=== PATIENT | female | born 1950 | race Caucasian/White ===

== ENCOUNTER → 2018-01-05 16:00 | Outpatient (CLI) | payer OTHER, SELFPAY | DX: Z23 Encounter for immunization (principal) | CPT/HCPCS: 90471; 90686 ==

== ENCOUNTER → 2019-01-13 19:01 | Outpatient (CLI) | payer OTHER, SELFPAY | DX: Z23 Encounter for immunization (principal) | CPT/HCPCS: 90471; 90686 ==

== ENCOUNTER → 2019-05-04 13:43 | Outpatient (CLI) | payer OTHER, SELFPAY ==
--- NOTE | 2019-05-04 13:45 | DI.RAD.S_ITS ---
PROCEDURE: XR LUMBAR SPINE 2-3V INDICATIONS: low back pain for a year after injury TECHNIQUE: 3 views of the lumbar spine were acquired. COMPARISON: [facility], , L-SPINE 2-3 VIEWS, 06/15/2009, 11:19. FINDINGS: Bones: 5 [id number] vertebrae are present. There is very mild rightward curvature of thoracolumbar junction centered at T10-11 level. Age indeterminate anterior wedge compression deformity at L1 level is seen with up to 50% loss of L1 vertebral body height anteriorly new since 2009 study. No other compression fracture. Minimal retrolisthesis at L1-2, L2-3 and L3-4 levels are seen. Minimal anterolisthesis at L5-S1 level is also noted. Degenerative disc disease throughout lumbar spine is seen more prominent at L5-S1 level. No suspicious bony lesions. Soft tissues: Overlying bowel gas pattern is normal. No suspicious soft tissue calcifications. IMPRESSION: Age-indeterminate anterior wedge compression deformity at L1 level with up to 50% loss of L1 vertebral body height anteriorly. Degenerative disc disease throughout lumbar spine with likely degenerative spondylolisthesis and lumbar spine as above. Dictated by: Kong Genao M.D. on 05/04/2019 at 14:41 Approved by: Kong Genao M.D. on 05/04/2019 at 14:43
== END ==
PROVIDERS: PCP Family Medicine; Visit Provider Family Medicine
DX: M54.5 Low back pain (principal); M51.36 Other intervertebral disc degeneration, lumbar region; M51.37 Other intervertebral disc degeneration, lumbosacral region
CPT/HCPCS: 72100

== ENCOUNTER → 2019-05-12 14:43 | Outpatient (CLI) | payer OTHER, SELFPAY | PROVIDERS: PCP Family Medicine; Referring Provider Family Medicine; Visit Provider Family Medicine | DX: M81.0 Age-related osteoporosis without current pathological fracture (principal); Z78.0 Asymptomatic menopausal state; Z82.62 Family history of osteoporosis; M54.9 Dorsalgia, unspecified; M48.54XA Collapsed vertebra, not elsewhere classified, thoracic region, initial encounter for fracture; G89.29 Other chronic pain | CPT/HCPCS: 77080 ==

== ENCOUNTER → 2019-05-23 08:43 | Outpatient (CLI) | payer OTHER, SELFPAY ==
[2019-05-23 10:11] LABS: Magnesium 2.2 mg/dL (1.6-2.3)
[2019-05-23 11:03] LABS: Vitamin D 25 Hydroxy (D3) 62.6 ng/mL (30.0-100.0)
== END ==
PROVIDERS: PCP Family Medicine; Referring Provider Family Medicine; Visit Provider Family Medicine
DX: M81.0 Age-related osteoporosis without current pathological fracture (principal)
CPT/HCPCS: 36415; 82306; 83735

== ENCOUNTER → 2019-11-10 12:42 | Outpatient (CLI) | payer OTHER, SELFPAY ==
--- NOTE | 2019-11-10 12:45 | DI.RAD.S_ITS ---
PROCEDURE: XR LUMBAR SPINE MIN 4V INDICATIONS: vert fx one year ago TECHNIQUE: 5 views of the lumbar spine were acquired. COMPARISON: [facility], NINO, XR LUMBAR SPINE 2-3V, 05/04/2019, 13:44. [facility], [place]INO, L-SPINE 2-3 VIEWS, 06/15/2009, 11:19. FINDINGS: Bones: 5 nonrib-bearing vertebrae are present. There is normal bony alignment. No acute vertebral body compression fractures but a previously present L1 moderately severe wedge compression fracture is again noted, also present on plain film imaging from April of this year. In inferior endplate L3 impaction injury also is present, chronic, and no new injury is seen. There is moderately severe to severe degenerative disc disease at L5-S1 and facet osteoarthritis that is mild at L4-5 and moderate to moderately severe at L5-S1.. No suspicious bony lesions. Soft tissues: Overlying bowel gas pattern is normal. No suspicious soft tissue calcifications. Oblique images: No pars defects. IMPRESSION: Old compression fractures, L1 and L3, moderately severe to severe degenerative changes L5-S1 where spinal and foraminal stenosis likely is present. Dictated by: Ronald Clifford M.D. on 11/10/2019 at 14:09 Approved by: Ronald Clifford M.D. on 11/10/2019 at 14:10
== END ==
PROVIDERS: PCP Family Medicine; Referring Provider Family Medicine; Visit Provider Physical Medicine & Rehabilitation
DX: S32.010D Wedge compression fracture of first lumbar vertebra, subsequent encounter for fracture with routine healing (principal); M51.37 Other intervertebral disc degeneration, lumbosacral region; M47.816 Spondylosis without myelopathy or radiculopathy, lumbar region; M81.0 Age-related osteoporosis without current pathological fracture
CPT/HCPCS: 72110

== ENCOUNTER → 2019-11-28 12:02 | Outpatient (CLI) | payer OTHER, SELFPAY ==
--- NOTE | 2019-11-28 12:03 | DI.MRI.S_ITS ---
PROCEDURE: MR LUMBAR SPINE WO CON INDICATIONS: vert fx TECHNIQUE: Noncontrast sagittal T1 spin echo and T2 fast echo, sagittal STIR, axial T1 and T2 fast spin echo through the lumbar spine. In cases with scoliosis, additional coronal T2 fast spin echo may be performed. COMPARISON: [facility], CR, XR LUMBAR SPINE MIN 4V, 11/10/2019, 12:35. [facility], CR, L-SPINE 2-3 VIEWS, 06/15/2009, 11:19. fracture stable [facility], CR, XR LUMBAR SPINE 2-3V, 05/04/2019, 13:44. FINDINGS: Image quality: Excellent. Alignment and Curvature: There is normal bony alignment. Bone Marrow: Reactive endplate changes noted adjacent to the L1-L2 and L5-S1 discs. L1 compression is stable compared to May 04, 2019 and November 10, 2019. Large Schmorl's node involving the inferior endplate of the L3 vertebral body is stable compared to May 04, 2019 and November 10, 2019. . Spinal Cord: Conus medullaris terminates at the L1 level. Visualized cord demonstrates normal signal and size. Paraspinous Soft Tissues: No paravertebral masses. T12-L1: Loss of disc signal. Mild, diffuse disc bulge. Mild narrowing of the central canal. Mild bilateral neural foraminal narrowing. No neural compression. L1-L2: Loss of disc signal. Mild, diffuse disc bulge. Mild narrowing of the central canal. Mild bilateral neural foraminal narrowing. No neural compression. L2-L3: Loss of disc signal. Mild, diffuse disc bulge. Mild narrowing of the central canal. Mild bilateral neural foraminal narrowing. No neural compression. L3-L4: Loss of disc signal. Mild, diffuse disc bulge. Mild bilateral facet hypertrophy. Mild to moderate narrowing of the central canal. Moderate bilateral neural foraminal narrowing. No neural compression. L4-L5: Loss of disc signal. Mild, diffuse disc bulge. Moderate bilateral facet hypertrophy. Moderate narrowing of the central canal. Mild bilateral neural foraminal narrowing. No neural compression. L5-S1: Loss of disc space signal and height. Mild, diffuse disc bulge. [id number] bilateral facet hypertrophy. No central stenosis. Severe bilateral neural foraminal narrowing with compression of the exiting L5 nerve roots. IMPRESSION: 1. L1 compression deformity and large L3 Schmorl's nodes stable compared to prior plain film radiographs obtained May 04, 2019 and November 10, 2019. 2. Multilevel degenerative disease. 3. Multilevel facet arthropathy. 4. No significant central canal narrowing. 5. Severe bilateral L5-S1 neural foraminal narrowing with compression of the exiting bilateral L5 nerve roots. Dictated by: Amaya Verduzco MD, PhD on 11/28/2019 at 15:41 Approved by: Amaya Verduzco MD, PhD on 11/28/2019 at 15:55
== END ==
PROVIDERS: PCP Family Medicine; Referring Provider Physical Medicine & Rehabilitation; Visit Provider Physical Medicine & Rehabilitation
DX: S32.010D Wedge compression fracture of first lumbar vertebra, subsequent encounter for fracture with routine healing (principal); M81.0 Age-related osteoporosis without current pathological fracture; M51.36 Other intervertebral disc degeneration, lumbar region; M51.37 Other intervertebral disc degeneration, lumbosacral region; M47.816 Spondylosis without myelopathy or radiculopathy, lumbar region; M47.817 Spondylosis without myelopathy or radiculopathy, lumbosacral region; M48.061 Spinal stenosis, lumbar region without neurogenic claudication; M48.07 Spinal stenosis, lumbosacral region
CPT/HCPCS: 72148

== ENCOUNTER → 2020-03-14 08:40 | Outpatient (CLI) | payer OTHER, SELFPAY ==
--- NOTE | 2020-03-14 09:18 | DI.RAD.S_ITS ---
PROCEDURE: XR LUMBAR SPINE MIN 4V INDICATIONS: L1 fx follow up TECHNIQUE: 5 views of the lumbar spine acquired. COMPARISON: [facility], , XR LUMBAR SPINE MIN 4V, 11/10/2019, 12:35. FINDINGS: Bones: 5 nonrib-bearing vertebrae are present. Mild retrolisthesis redemonstrated at L1-L2, L2-L3, and L3-L4. There is a moderate superior endplate compression fracture of the L1 vertebral body which appears similar to the prior study. Slight posterior displacement along the superior endplate is redemonstrated with associated mild bony spinal canal narrowing. Multilevel mild to moderate degenerative disc disease redemonstrated throughout the lumbar spine. There is also moderate facet arthropathy again noted in the lower lumbar spine. Oblique images demonstrate no pars defects. Soft tissues: Overlying bowel gas pattern is normal. No suspicious soft tissue calcifications. IMPRESSION: 1. Superior endplate compression fracture of the L1 vertebral body appears similar to the prior study. Associated mild bony spinal canal narrowing redemonstrated at T12-L1. 2. Multilevel degenerative disc disease and facet arthropathy redemonstrated in the lumbar spine. Dictated by: Marcell Marina M.D. on 03/14/2020 at 10:11 Approved by: Marcell Marina M.D. on 03/14/2020 at 10:14
== END ==
PROVIDERS: PCP Family Medicine; Referring Provider Physical Medicine & Rehabilitation; Visit Provider Physical Medicine & Rehabilitation
DX: S32.010D Wedge compression fracture of first lumbar vertebra, subsequent encounter for fracture with routine healing (principal); M48.05 Spinal stenosis, thoracolumbar region; M51.36 Other intervertebral disc degeneration, lumbar region; M47.816 Spondylosis without myelopathy or radiculopathy, lumbar region; M41.9 Scoliosis, unspecified
CPT/HCPCS: 72110

== ENCOUNTER → 2020-04-11 11:06 | Outpatient (CLI) | payer OTHER, SELFPAY ==
[2020-04-11] MEDS: COVID-19 VACC(MODERNA-1)/PF 100 MCG/0.5 ML VIAL IM (11:13)
== END ==
PROVIDERS: PCP Family Medicine; Visit Provider Internal Medicine
DX: Z23 Encounter for immunization (principal)
CPT/HCPCS: 0011A; 91301

== ENCOUNTER → 2020-05-09 11:01 | Outpatient (CLI) | payer OTHER, SELFPAY ==
[2020-05-09] MEDS: COVID-19 VACC #2, MRNA(MOD) 100 MCG/0.5 ML VIAL IM (11:11)
== END ==
PROVIDERS: PCP Family Medicine; Visit Provider Internal Medicine
DX: Z23 Encounter for immunization (principal)
CPT/HCPCS: 0012A; 91301

== ENCOUNTER 2021-12-12 11:46 | Inpatient (IN) | payer MEDICARE, OTHER, SELFPAY ==
[2021-12-12 11:52] VITALS: BP 169/93; PULSE 99; RESP 16; TEMP 36.8; O2SAT 97; BMI 16.7
--- NOTE | 2021-12-12 14:15 | PC.NURSE ---
called on visitor phone requesting assistance for pt, rounded and pt sitting in waiting room asking questions concerning urine specimen collection. Explained procedure to pt, pt pointed out paper instructions to place urine cup on a shelf and she could not find a shelf in bathroom, explained procedure to pt and educated how she could accomplish without shelf, pt reports continued confusion with process. Informed pt we could assist her further once we had a room in the ED, updated pt and on wait.
--- NOTE | 2021-12-12 17:14 | ED.PSYCH ---
HPI - Psych <Lalo Fulton MD - Last Filed: 12/26/21 07:21> General Chief Complaint: Psychiatric Symptoms Stated Complaint: mental health issues Time Seen by Provider: 12/12/21 16:04 Source: patient Mode of arrival: Ambulatory History of Present Illness HPI Narrative: Patient here with her . Patient is not a good historian. Patient was diagnosed with Lewy body dementia this past May. He is followed by Neurology Dr. Stoll at [facility]. I did review discharge summary from May/June of this year from [facility]. Patient was not able to follow up with [facility] as recommended by Dr. Dunaway with psychiatry at [facility]. Patient has had her Seroquel adjustment with Dr. Stoll since September. Currently not on any Seroquel. During her stay at [facility]. She did have visual hallucinations./altered mental status. Psychiatry consult determine she was non decisional given mental state and mental capacity and decision making. She did have MRI of the brain and CT scan of the brain as well as lumbar puncture. Those were unremarkable. In the last 3 days states she has been behaving oddly and had confusion. She would be cleaning things obsessively for no reason. She at times is catatonic according to family/. He states he fears that she might hurt herself or others accidentally. She does not seem to be as oriented and alert at her baseline. No recent illness no cough cold congestion fever chills. No urinary complaints. Has chronic low back pain which is not new. No fall or injury. Related Data Previous Rx's Medication Instructions Recorded acetaminophen 325 mg tablet 650 mg PO Q6HR PRN Fever/Mild Pain 12/17/21 (1-3) #30 tabs apixaban 5 mg tablet 5 mg PO BID #60 tabs 12/17/21 apixaban 5 mg tablet (Eliquis) 10 mg PO BID #14 tabs 12/17/21 polyethylene glycol 3350 17 gram 17 gm PO DAILY PRN Constipation 12/17/21 oral powder packet #15 ea quetiapine 25 mg tablet 12.5 mg PO BID #30 tabs 12/17/21 sennosides 8.6 mg tablet (senna) 8.6 mg PO DAILY PRN Constipation 09/13/22 #15 tabs Allergies Allergy/AdvReac Type Severity Reaction Status Date / Time No Known Drug Allergies Allergy Verified 12/12/21 11:52 Review of Systems <Lalo Fulton MD - Last Filed: 12/26/21 07:21> Review of Systems Narrative: GENERAL: Denies chills, fatigue, malaise, fever, sweats. HEENT: Denies sinus pain, ear pain, sore throat RESPIRATORY: Denies dyspnea, cough CARDIOVASCULAR: Denies chest pain, palpitations GASTROINTESTINAL: Denies nausea, vomiting, abdominal pain : Denies dysuria, frequency, hematuria MUSCULOSKELETAL: denies muscle or bony pain SKIN: Denies rash, skin lesions NEUROLOGIC: Denies weakness, numbness PSYCH: Is not combative, is cooperative ROS Unobtainable: All systems reviewed & are unremarkable except as noted in HPI and below Patient History <Lalo Fulton MD - Last Filed: 12/26/21 07:21> Medical History Body posture problem Body posture problem Cervical somatic dysfunction Chicken pox Chronic back pain (~2018) Compression fracture of L1 vertebra with routine healing Cranial somatic dysfunction Facet arthropathy Knee pain (~2008) Kyphosis (acquired) (postural) Musculoskeletal problem (~2018) Osteoporosis Pelvic somatic dysfunction Rib pain on left side Scoliosis Segmental and somatic dysfunction of abdomen and other regions Segmental and somatic dysfunction of lower extremity Segmental and somatic dysfunction of lumbar region Segmental and somatic dysfunction of rib cage Segmental and somatic dysfunction of sacral region Segmental and somatic dysfunction of thoracic region Segmental and somatic dysfunction of upper extremity Skin rash (~2018) Vision disorder Surgical History History of cataract removal with insertion of prosthetic lens (~2015) Family History Father Cancer Mother History of heart disease Social History household members: spouse Smoking Status: Never smoker Smoking Status: Never smoker alcohol intake frequency: holidays/special occasions only Substance Use Type: does not use Exam <Lalo Fulton MD - Last Filed: 12/26/21 07:21> Narrative Exam Narrative: GENERAL: in no distress, not toxic not dyspneic HEAD: Normocephalic. EYES: Pupils equal round No scleral icterus. ENT: Mucous membranes moist. NECK: Trachea midline. CARDIOVASCULAR: Regular rate and rhythm without murmurs RESPIRATORY: Clear to auscultation. Breath sounds equal bilaterally. No wheezes, rales, or rhonchi. GASTROINTESTINAL: Abdomen soft, non-tender EXTREMITIES: No gross deformities. BACK: No flank tenderness. NEURO: Awake and alert to name and date of only. Have slow clear speech. Hand Bootmaker equally each hand. Has very slow processing with answering questions SKIN: Warm and dry PSYCH: Not anxious, is cooperative, has flat affect. Not combative. Initial Vital Signs Initial Vital Signs: Vital Signs Temperature 98.3 F 12/12/21 11:52 Pulse Rate 99 H 12/12/21 11:52 Respiratory Rate 16 12/12/21 11:52 Blood Pressure 169/93 H 12/12/21 11:52 Pulse Oximetry 97 12/12/21 11:52 Oxygen Delivery Method 12/12/21 11:52 <Jean Carlos Pratt DO - Last Filed: 12/14/21 06:57> Initial Vital Signs Initial Vital Signs: Vital Signs Temperature 98.3 F 12/12/21 11:52 Pulse Rate 99 H 12/12/21 11:52 Respiratory Rate 16 12/12/21 11:52 Blood Pressure 169/93 H 12/12/21 11:52 Pulse Oximetry 97 12/12/21 11:52 Oxygen Delivery Method 12/12/21 11:52 <Mariya Escobar DO - Last Filed: 12/14/21 18:43> Initial Vital Signs Initial Vital Signs: Vital Signs Temperature 98.3 F 12/12/21 11:52 Pulse Rate 99 H 12/12/21 11:52 Respiratory Rate 16 12/12/21 11:52 Blood Pressure 169/93 H 12/12/21 11:52 Pulse Oximetry 97 12/12/21 11:52 Oxygen Delivery Method 12/12/21 11:52 Course <Lalo Futlon MD - Last Filed: 12/26/21 07:21> Course Course Narrative: 6:00 p.m.. Sign out to Dr. Gray, patient will need completed evaluation by social work. Medical clearance. Labs are pending. Erlinda social work indicates may need CHRISTINA/DCR December 13, 2021 at 7:00 a.m.. Sign out from Dr Gray, DCR had to do walk away. No beds available. Will need social work to see patient again to start process again for placement. 7:45 a.m.. Reintroduced myself the patient. No verbal response asking her name date of or how she is doing. Patient is awake. Does track with her eyes. not at bedside at this time. Awaiting callback from Dr. Stoll, her neurologist 6:00 p.m.. Sign out to Dr. Pratt, patient still being worked with social work for placement. The DCR has walked away twice. Patient to receive Sinemet 3 times a day. Needs repeat on laboratory studies/CMP. May need sodium replacement Orders Ordered: Discontinued Medications Acetaminophen (Acetaminophen 325 Mg Tablet) 650 mg PO Q6HR PRN PRN Reason: Fever/Mild Pain (1-3) Stop: 12/17/21 21:01 Last Admin: 12/17/21 05:03 Dose: 650 mg Documented By: FELTON Acetaminophen (Acetaminophen 650 Mg Supp) 650 mg IA Q4HR PRN PRN Reason: Fever/Mild Pain (1-3) Last Admin: 12/18/21 20:19 Dose: 650 mg Documented By: Apixaban (Apixaban 5 Mg Tablet) 10 mg PO BID [facility] Stop: 12/21/21 11:29 Last Admin: 12/14/21 11:35 Dose: Not Given Documented By: ALEXEY Apixaban (Apixaban 5 Mg Tablet) 10 mg PO BID [facility] Stop: 12/20/21 21:01 Last Admin: 12/17/21 09:26 Dose: 10 mg Documented By: Admin: 12/16/21 23:36 Dose: 10 mg Documented By: Admin: 12/16/21 09:38 Dose: 10 mg Documented By: Admin: 12/15/21 20:18 Dose: 10 mg Documented By: NICOLE Carbidopa/Levodopa (Carbidopa-Levodopa 25/100 Tablet) 1 each PO NOW ONE Stop: 12/13/21 09:03 Last Admin: 12/13/21 09:32 Dose: 1 each Documented By: AMILCAR Carbidopa/Levodopa (Carbidopa-Levodopa 25/100 Tablet) 1 each PO TID [facility] Last Admin: 12/14/21 09:21 Dose: Not Given Documented By: Admin: 12/13/21 21:58 Dose: 1 each Documented By: LETI Carbidopa/Levodopa (Carbidopa-Levodopa 25/100 Tablet) 1 each PO BID [facility] Last Admin: 12/14/21 17:31 Dose: Not Given Documented By: JUSTICE Carbidopa/Levodopa (Carbidopa-Levodopa 25/100 Tablet) 1 each PO TID [facility] Last Admin: 12/17/21 09:26 Dose: 1 each Documented By: Admin: 12/16/21 23:38 Dose: 1 each Documented By: Admin: 12/16/21 15:13 Dose: 1 each Documented By: Admin: 12/16/21 09:37 Dose: 1 each Documented By: HCVin Admin: 12/15/21 20:17 Dose: 1 each Documented By: Admin: 12/15/21 13:21 Dose: 1 each Documented By: Admin: 12/15/21 08:15 Dose: 1 each Documented By: Admin: 12/14/21 22:20 Dose: 1 each Documented By: NICOLE Enoxaparin Sodium (Enoxaparin 60 Mg/0.6 Ml Syringe) 50 mg 1 mg/kg (50 mg) SUBCUT NOW ONE Stop: 12/14/21 11:31 Last Admin: 12/14/21 11:36 Dose: 50 mg Documented By: AT Enoxaparin Sodium (Enoxaparin 60 Mg/0.6 Ml Syringe) 50 mg SUBCUT BID [facility] Last Admin: 12/15/21 08:15 Dose: 50 mg Documented By: Admin: 12/14/21 22:21 Dose: 50 mg Documented By: AM Enoxaparin Sodium (Enoxaparin 40 Mg/0.4 Ml Syringe) 40 mg SUBCUT BID [facility] Last Admin: 12/17/21 21:04 Dose: 40 mg Documented By: KEVEN Sodium Chloride (Normal Saline 0.9%) 1,000 mls @ 1,000 mls/hr IV BOLUS ONE Stop: 12/14/21 09:27 Last Admin: 12/14/21 09:34 Dose: 125 mls/hr Documented By: ALEXEY Piperacillin Sod/Tazobactam (Sod 4.5 gm/ Sodium Chloride) 100 mls @ 200 mls/hr IV NOW ONE Stop: 12/14/21 08:58 Last Infusion: 12/14/21 10:21 Dose: 0 mls/hr Documented By: Admin: 12/14/21 09:35 Dose: 200 mls/hr Documented By: ALEXEY Piperacillin Sod/Tazobactam (Sod 3.375 gm/ Sodium Chloride) 100 mls @ 25 mls/hr IV Q8H JO Last Admin: 12/15/21 12:00 Dose: 25 mls/hr Documented By: Infusion: 12/15/21 09:17 Dose: 0 mls/hr Documented By: Admin: 12/15/21 03:56 Dose: 25 mls/hr Documented By: Infusion: 12/15/21 00:01 Dose: 25 mls/hr Documented By: Admin: 12/14/21 20:01 Dose: 25 mls/hr Documented By: AM Sodium Chloride (Normal Saline 0.9%) 1,000 mls @ 60 mls/hr IV CONT JO Last Admin: 12/17/21 04:43 Dose: 60 mls/hr Documented By: Infusion: 12/17/21 04:43 Dose: 60 mls/hr Documented By: Admin: 12/16/21 12:10 Dose: 60 mls/hr Documented By: Infusion: 12/16/21 12:10 Dose: 100 mls/hr Documented By: Admin: 12/16/21 03:58 Dose: 100 mls/hr Documented By: Infusion: 12/16/21 03:58 Dose: 100 mls/hr Documented By: Admin: 12/15/21 18:31 Dose: 100 mls/hr Documented By: Infusion: 12/15/21 15:52 Dose: 100 mls/hr Documented By: Admin: 12/15/21 05:52 Dose: 100 mls/hr Documented By: Infusion: 12/15/21 05:52 Dose: 100 mls/hr Documented By: Admin: 12/14/21 20:01 Dose: 100 mls/hr Documented By: AM POTASSIUM CHLORIDE IN WATER (Potassium Cl 10 Meq/100 Ml Tala) 10 meq in 100 mls @ 100 mls/hr IV Q1H JO Stop: 12/15/21 13:29 Last Admin: 12/15/21 13:21 Dose: 100 mls/hr Documented By: Infusion: 12/15/21 12:56 Dose: 100 mls/hr Documented By: Admin: 12/15/21 11:56 Dose: 100 mls/hr Documented By: Infusion: 12/15/21 11:46 Dose: 100 mls/hr Documented By: Admin: 12/15/21 10:46 Dose: 100 mls/hr Documented By: Infusion: 12/15/21 10:17 Dose: 100 mls/hr Documented By: Admin: 12/15/21 09:17 Dose: 100 mls/hr Documented By: BV POTASSIUM CHLORIDE IN WATER (Potassium Cl 10 Meq/100 Ml Tala) 10 meq in 100 mls @ 100 mls/hr IV Q1H JO Stop: 12/16/21 13:29 Levetiracetam 1,500 mg/ Sodium (Chloride) 115 mls @ 460 mls/hr IV NOW ONE Stop: 12/17/21 19:13 Last Infusion: 12/17/21 22:01 Dose: 0 mls/hr Documented By: Admin: 12/17/21 20:33 Dose: 460 mls/hr Documented By: KEVEN Levetiracetam 2,000 mg/ Sodium (Chloride) 120 mls @ 480 mls/hr IV NOW ONE Stop: 12/17/21 20:49 Last Admin: 12/17/21 22:03 Dose: Not Given Documented By: KEVEN Levetiracetam (Levetiracetam 500 Mg/5 Ml Vial) 500 mg IV NOW ONE Stop: 12/17/21 21:01 Last Admin: 12/17/21 21:04 Dose: 500 mg Documented By: KEVEN Lorazepam (Lorazepam 2 Mg/Ml Inj) 0.5 mg IV NOW ONE Stop: 12/17/21 14:34 Last Admin: 12/17/21 14:47 Dose: 0.5 mg Documented By: CARMINE Lorazepam (Lorazepam 2 Mg/Ml Inj) 0.5 mg IV NOW ONE Stop: 12/17/21 14:51 Last Admin: 12/17/21 14:50 Dose: 0.5 mg Documented By: TLS Lorazepam (Lorazepam 2 Mg/Ml Inj) 0.5 mg IV Q2HR PRN PRN Reason: Anxiety Last Admin: 12/17/21 19:16 Dose: 0.5 mg Documented By: Admin: 12/17/21 18:12 Dose: 0.5 mg Documented By: BT Lorazepam (Lorazepam 2 Mg/Ml Inj) 1 mg IV Q2HR PRN PRN Reason: seizure Last Admin: 12/17/21 20:34 Dose: 1 mg Documented By: AGW Lorazepam (Lorazepam 2 Mg/Ml Inj) 1 mg IV Q1HR PRN PRN Reason: Agitation/Anxiety Last Admin: 12/18/21 00:55 Dose: 1 mg Documented By: Admin: 12/17/21 23:21 Dose: 1 mg Documented By: AGW Melatonin (Melatonin 3 Mg Tablet) 6 mg PO BEDTIME [facility] Last Admin: 12/16/21 23:48 Dose: Not Given Documented By: Admin: 12/15/21 20:17 Dose: 6 mg Documented By: Admin: 12/14/21 22:26 Dose: 6 mg Documented By: AM Morphine Sulfate (Morphine 2 Mg/Ml Inj) 1 mg IV Q2HR PRN PRN Reason: Pain, Moderate (4-)10 Last Admin: 12/17/21 22:48 Dose: 1 mg Documented By: AGW Ondansetron HCl (Ondansetron 4 Mg/2 Ml Inj) 4 mg IV Q4HR PRN PRN Reason: Nausea And Vomiting Polyethylene Glycol (Polyethylene Glycol 3350 17 Gm Powd.Pack) 17 gm PO DAILY PRN PRN Reason: Constipation Last Admin: 12/17/21 09:26 Dose: 17 gm Documented By: BT Potassium Chloride (Potassium Chloride 20 Meq/15 Ml Udc) 40 meq PO NOW ONE Stop: 12/12/21 18:59 Last Admin: 12/12/21 19:26 Dose: 40 meq Documented By: DKB Potassium Chloride (Potassium Chloride 20 Meq/15 Ml Udc) 40 meq PO NOW ONE Stop: 12/16/21 09:29 Last Admin: 12/16/21 09:37 Dose: 40 meq Documented By: HCW Potassium Chloride (Potassium Chloride 20 Meq Tab) 20 meq PO NOW ONE Stop: 12/16/21 18:36 Last Admin: 12/16/21 23:07 Dose: Not Given Documented By: SH Quetiapine Fumarate (Quetiapine 25 Mg Tablet) 12.5 mg PO BID [facility] Quetiapine Fumarate (Quetiapine 25 Mg Tablet) 12.5 mg PO BID [facility] Last Admin: 12/18/21 20:21 Dose: Not Given Documented By: Admin: 12/18/21 09:18 Dose: Not Given Documented By: Admin: 12/17/21 20:39 Dose: Not Given Documented By: Admin: 12/17/21 09:27 Dose: 12.5 mg Documented By: Admin: 12/16/21 16:53 Dose: 12.5 mg Documented By: HCW Scopolamine (Scopolamine 1 Patch) 1 patch TOP NOW ONE Stop: 12/16/21 20:04 Last Admin: 12/16/21 21:36 Dose: 1 patch Documented By: SH Sennosides (Sennosides 8.6 Mg Tablet) 8.6 mg PO DAILY PRN PRN Reason: Constipation Last Admin: 12/17/21 09:26 Dose: 8.6 mg Documented By: MIRTHA Trazodone HCl (Trazodone 100 Mg Tablet) 100 mg PO BEDTIME [facility] Last Admin: 12/16/21 23:39 Dose: 100 mg Documented By: FELTON Consultations Consultation #1: Spoke with social professionals, Erlinda, at this time patient may need DCR for gravely disabled. Family agrees may need involuntary placement for medications Time: 17:21 Consultation #2: December 13, 2021, I spoke with Dr. Stoll, patient's neurologist. He recommends trying Sinemet 25/100 mg here in the department and if improvement then would continue this dose 3 times a day. He recommends consulting psychiatry. He states do not resume Seroquel. He still believes this is Lewy body dementia in late stage Time: 09:02 Vital Signs Vital signs: Vital Signs - 8 hr 12/14/21 10:45 12/14/21 10:45 12/14/21 11:00 Pulse Rate 89 Respiratory Rate 22 Blood Pressure 100/57 L 120/57 L Pulse Oximetry 100 12/14/21 11:00 12/14/21 11:15 12/14/21 11:15 Pulse Rate 110 H 90 Respiratory Rate 33 H 21 Blood Pressure 111/56 L Pulse Oximetry 100 100 <Jean Carlos Pratt, DO - Last Filed: 12/14/21 06:57> Orders Ordered: Discontinued Medications Acetaminophen (Acetaminophen 325 Mg Tablet) 650 mg PO Q6HR PRN PRN Reason: Fever/Mild Pain (1-3) Stop: 12/17/21 21:01 Last Admin: 12/17/21 05:03 Dose: 650 mg Documented By: FELTON Acetaminophen (Acetaminophen 650 Mg Supp) 650 mg IA Q4HR PRN PRN Reason: Fever/Mild Pain (1-3) Last Admin: 12/18/21 20:19 Dose: 650 mg Documented By: Apixaban (Apixaban 5 Mg Tablet) 10 mg PO BID [facility] Stop: 12/21/21 11:29 Last Admin: 12/14/21 11:35 Dose: Not Given Documented By: ALEXEY Apixaban (Apixaban 5 Mg Tablet) 10 mg PO BID [facility] Stop: 12/20/21 21:01 Last Admin: 12/17/21 09:26 Dose: 10 mg Documented By: Admin: 12/16/21 23:36 Dose: 10 mg Documented By: Admin: 12/16/21 09:38 Dose: 10 mg Documented By: Admin: 12/15/21 20:18 Dose: 10 mg Documented By: NICOLE Carbidopa/Levodopa (Carbidopa-Levodopa 25/100 Tablet) 1 each PO NOW ONE Stop: 12/13/21 09:03 Last Admin: 12/13/21 09:32 Dose: 1 each Documented By: AMILCAR Carbidopa/Levodopa (Carbidopa-Levodopa 25/100 Tablet) 1 each PO TID [facility] Last Admin: 12/14/21 09:21 Dose: Not Given Documented By: Admin: 12/13/21 21:58 Dose: 1 each Documented By: LETI Carbidopa/Levodopa (Carbidopa-Levodopa 25/100 Tablet) 1 each PO BID [facility] Last Admin: 12/14/21 17:31 Dose: Not Given Documented By: JUSTICE Carbidopa/Levodopa (Carbidopa-Levodopa 25/100 Tablet) 1 each PO TID [facility] Last Admin: 12/17/21 09:26 Dose: 1 each Documented By: Admin: 12/16/21 23:38 Dose: 1 each Documented By: Admin: 12/16/21 15:13 Dose: 1 each Documented By: Admin: 12/16/21 09:37 Dose: 1 each Documented By: Admin: 12/15/21 20:17 Dose: 1 each Documented By: Admin: 12/15/21 13:21 Dose: 1 each Documented By: Admin: 12/15/21 08:15 Dose: 1 each Documented By: Admin: 12/14/21 22:20 Dose: 1 each Documented By: AM Enoxaparin Sodium (Enoxaparin 60 Mg/0.6 Ml Syringe) 50 mg 1 mg/kg (50 mg) SUBCUT NOW ONE Stop: 12/14/21 11:31 Last Admin: 12/14/21 11:36 Dose: 50 mg Documented By: AT Enoxaparin Sodium (Enoxaparin 60 Mg/0.6 Ml Syringe) 50 mg SUBCUT BID [facility] Last Admin: 12/15/21 08:15 Dose: 50 mg Documented By: Admin: 12/14/21 22:21 Dose: 50 mg Documented By: AM Enoxaparin Sodium (Enoxaparin 40 Mg/0.4 Ml Syringe) 40 mg SUBCUT BID [facility] Last Admin: 12/17/21 21:04 Dose: 40 mg Documented By: KEVEN Sodium Chloride (Normal Saline 0.9%) 1,000 mls @ 1,000 mls/hr IV BOLUS ONE Stop: 12/14/21 09:27 Last Admin: 12/14/21 09:34 Dose: 125 mls/hr Documented By: ALEXEY Piperacillin Sod/Tazobactam (Sod 4.5 gm/ Sodium Chloride) 100 mls @ 200 mls/hr IV NOW ONE Stop: 12/14/21 08:58 Last Infusion: 12/14/21 10:21 Dose: 0 mls/hr Documented By: Admin: 12/14/21 09:35 Dose: 200 mls/hr Documented By: ALEXEY Piperacillin Sod/Tazobactam (Sod 3.375 gm/ Sodium Chloride) 100 mls @ 25 mls/hr IV Q8H [facility] Last Admin: 12/15/21 12:00 Dose: 25 mls/hr Documented By: Infusion: 12/15/21 09:17 Dose: 0 mls/hr Documented By: Admin: 12/15/21 03:56 Dose: 25 mls/hr Documented By: Infusion: 12/15/21 00:01 Dose: 25 mls/hr Documented By: Admin: 12/14/21 20:01 Dose: 25 mls/hr Documented By: AM Sodium Chloride (Normal Saline 0.9%) 1,000 mls @ 60 mls/hr IV CONT JO Last Admin: 12/17/21 04:43 Dose: 60 mls/hr Documented By: Infusion: 12/17/21 04:43 Dose: 60 mls/hr Documented By: Admin: 12/16/21 12:10 Dose: 60 mls/hr Documented By: Infusion: 12/16/21 12:10 Dose: 100 mls/hr Documented By: Admin: 12/16/21 03:58 Dose: 100 mls/hr Documented By: Infusion: 12/16/21 03:58 Dose: 100 mls/hr Documented By: Admin: 12/15/21 18:31 Dose: 100 mls/hr Documented By: Infusion: 12/15/21 15:52 Dose: 100 mls/hr Documented By: Admin: 12/15/21 05:52 Dose: 100 mls/hr Documented By: Infusion: 12/15/21 05:52 Dose: 100 mls/hr Documented By: Admin: 12/14/21 20:01 Dose: 100 mls/hr Documented By: AM POTASSIUM CHLORIDE IN WATER (Potassium Cl 10 Meq/100 Ml Tala) 10 meq in 100 mls @ 100 mls/hr IV Q1H JO Stop: 12/15/21 13:29 Last Admin: 12/15/21 13:21 Dose: 100 mls/hr Documented By: Infusion: 12/15/21 12:56 Dose: 100 mls/hr Documented By: Admin: 12/15/21 11:56 Dose: 100 mls/hr Documented By: Infusion: 12/15/21 11:46 Dose: 100 mls/hr Documented By: Admin: 12/15/21 10:46 Dose: 100 mls/hr Documented By: Infusion: 12/15/21 10:17 Dose: 100 mls/hr Documented By: Admin: 12/15/21 09:17 Dose: 100 mls/hr Documented By: BV POTASSIUM CHLORIDE IN WATER (Potassium Cl 10 Meq/100 Ml Tala) 10 meq in 100 mls @ 100 mls/hr IV Q1H JO Stop: 12/16/21 13:29 Levetiracetam 1,500 mg/ Sodium (Chloride) 115 mls @ 460 mls/hr IV NOW ONE Stop: 12/17/21 19:13 Last Infusion: 12/17/21 22:01 Dose: 0 mls/hr Documented By: Admin: 12/17/21 20:33 Dose: 460 mls/hr Documented By: KEVEN Levetiracetam 2,000 mg/ Sodium (Chloride) 120 mls @ 480 mls/hr IV NOW ONE Stop: 12/17/21 20:49 Last Admin: 12/17/21 22:03 Dose: Not Given Documented By: KEVEN Levetiracetam (Levetiracetam 500 Mg/5 Ml Vial) 500 mg IV NOW ONE Stop: 12/17/21 21:01 Last Admin: 12/17/21 21:04 Dose: 500 mg Documented By: KEVEN Lorazepam (Lorazepam 2 Mg/Ml Inj) 0.5 mg IV NOW ONE Stop: 12/17/21 14:34 Last Admin: 12/17/21 14:47 Dose: 0.5 mg Documented By: CARMINE Lorazepam (Lorazepam 2 Mg/Ml Inj) 0.5 mg IV NOW ONE Stop: 12/17/21 14:51 Last Admin: 12/17/21 14:50 Dose: 0.5 mg Documented By: MADIHA Lorazepam (Lorazepam 2 Mg/Ml Inj) 0.5 mg IV Q2HR PRN PRN Reason: Anxiety Last Admin: 12/17/21 19:16 Dose: 0.5 mg Documented By: Admin: 12/17/21 18:12 Dose: 0.5 mg Documented By: MIRTHA Lorazepam (Lorazepam 2 Mg/Ml Inj) 1 mg IV Q2HR PRN PRN Reason: seizure Last Admin: 12/17/21 20:34 Dose: 1 mg Documented By: KEVEN Lorazepam (Lorazepam 2 Mg/Ml Inj) 1 mg IV Q1HR PRN PRN Reason: Agitation/Anxiety Last Admin: 12/18/21 00:55 Dose: 1 mg Documented By: Admin: 12/17/21 23:21 Dose: 1 mg Documented By: KEVEN Melatonin (Melatonin 3 Mg Tablet) 6 mg PO BEDTIME JO Last Admin: 12/16/21 23:48 Dose: Not Given Documented By: Admin: 12/15/21 20:17 Dose: 6 mg Documented By: Admin: 12/14/21 22:26 Dose: 6 mg Documented By: AM Morphine Sulfate (Morphine 2 Mg/Ml Inj) 1 mg IV Q2HR PRN PRN Reason: Pain, Moderate (4-)10 Last Admin: 12/17/21 22:48 Dose: 1 mg Documented By: AGW Ondansetron HCl (Ondansetron 4 Mg/2 Ml Inj) 4 mg IV Q4HR PRN PRN Reason: Nausea And Vomiting Polyethylene Glycol (Polyethylene Glycol 3350 17 Gm Powd.Pack) 17 gm PO DAILY PRN PRN Reason: Constipation Last Admin: 12/17/21 09:26 Dose: 17 gm Documented By: MIRTHA Potassium Chloride (Potassium Chloride 20 Meq/15 Ml Udc) 40 meq PO NOW ONE Stop: 12/12/21 18:59 Last Admin: 12/12/21 19:26 Dose: 40 meq Documented By: MARSHALL Potassium Chloride (Potassium Chloride 20 Meq/15 Ml Udc) 40 meq PO NOW ONE Stop: 12/16/21 09:29 Last Admin: 12/16/21 09:37 Dose: 40 meq Documented By: VERONICA Potassium Chloride (Potassium Chloride 20 Meq Tab) 20 meq PO NOW ONE Stop: 12/16/21 18:36 Last Admin: 12/16/21 23:07 Dose: Not Given Documented By: FELTON Quetiapine Fumarate (Quetiapine 25 Mg Tablet) 12.5 mg PO BID [facility] Quetiapine Fumarate (Quetiapine 25 Mg Tablet) 12.5 mg PO BID JO Last Admin: 12/18/21 20:21 Dose: Not Given Documented By: Admin: 12/18/21 09:18 Dose: Not Given Documented By: Admin: 12/17/21 20:39 Dose: Not Given Documented By: Admin: 12/17/21 09:27 Dose: 12.5 mg Documented By: Admin: 12/16/21 16:53 Dose: 12.5 mg Documented By: VERONICA Scopolamine (Scopolamine 1 Patch) 1 patch TOP NOW ONE Stop: 12/16/21 20:04 Last Admin: 12/16/21 21:36 Dose: 1 patch Documented By: FELTON Sennosides (Sennosides 8.6 Mg Tablet) 8.6 mg PO DAILY PRN PRN Reason: Constipation Last Admin: 12/17/21 09:26 Dose: 8.6 mg Documented By: MIRTHA Trazodone HCl (Trazodone 100 Mg Tablet) 100 mg PO BEDTIME [facility] Last Admin: 12/16/21 23:39 Dose: 100 mg Documented By: FELTON Vital Signs Vital signs: Vital Signs - 8 hr 12/14/21 10:45 12/14/21 10:45 12/14/21 11:00 Pulse Rate 89 Respiratory Rate 22 Blood Pressure 100/57 L 120/57 L Pulse Oximetry 100 12/14/21 11:00 12/14/21 11:15 12/14/21 11:15 Pulse Rate 110 H 90 Respiratory Rate 33 H 21 Blood Pressure 111/56 L Pulse Oximetry 100 100 <Mariya Escobar DO - Last Filed: 12/14/21 18:43> Orders Ordered: Discontinued Medications Acetaminophen (Acetaminophen 325 Mg Tablet) 650 mg PO Q6HR PRN PRN Reason: Fever/Mild Pain (1-3) Stop: 12/17/21 21:01 Last Admin: 12/17/21 05:03 Dose: 650 mg Documented By: FELTON Acetaminophen (Acetaminophen 650 Mg Supp) 650 mg IA Q4HR PRN PRN Reason: Fever/Mild Pain (1-3) Last Admin: 12/18/21 20:19 Dose: 650 mg Documented By: Apixaban (Apixaban 5 Mg Tablet) 10 mg PO BID [facility] Stop: 12/21/21 11:29 Last Admin: 12/14/21 11:35 Dose: Not Given Documented By: ALEXEY Apixaban (Apixaban 5 Mg Tablet) 10 mg PO BID [facility] Stop: 12/20/21 21:01 Last Admin: 12/17/21 09:26 Dose: 10 mg Documented By: Admin: 12/16/21 23:36 Dose: 10 mg Documented By: Admin: 12/16/21 09:38 Dose: 10 mg Documented By: Admin: 12/15/21 20:18 Dose: 10 mg Documented By: NICOLE Carbidopa/Levodopa (Carbidopa-Levodopa 25/100 Tablet) 1 each PO NOW ONE Stop: 12/13/21 09:03 Last Admin: 12/13/21 09:32 Dose: 1 each Documented By: AMILCAR Carbidopa/Levodopa (Carbidopa-Levodopa 25/100 Tablet) 1 each PO TID [facility] Last Admin: 12/14/21 09:21 Dose: Not Given Documented By: Admin: 12/13/21 21:58 Dose: 1 each Documented By: LETI Carbidopa/Levodopa (Carbidopa-Levodopa 25/100 Tablet) 1 each PO BID [facility] Last Admin: 12/14/21 17:31 Dose: Not Given Documented By: JUSTICE Carbidopa/Levodopa (Carbidopa-Levodopa 25/100 Tablet) 1 each PO TID [facility] Last Admin: 12/17/21 09:26 Dose: 1 each Documented By: Admin: 12/16/21 23:38 Dose: 1 each Documented By: Admin: 12/16/21 15:13 Dose: 1 each Documented By: Admin: 12/16/21 09:37 Dose: 1 each Documented By: Admin: 12/15/21 20:17 Dose: 1 each Documented By: Admin: 12/15/21 13:21 Dose: 1 each Documented By: Admin: 12/15/21 08:15 Dose: 1 each Documented By: Admin: 12/14/21 22:20 Dose: 1 each Documented By: AM Enoxaparin Sodium (Enoxaparin 60 Mg/0.6 Ml Syringe) 50 mg 1 mg/kg (50 mg) SUBCUT NOW ONE Stop: 12/14/21 11:31 Last Admin: 12/14/21 11:36 Dose: 50 mg Documented By: AT Enoxaparin Sodium (Enoxaparin 60 Mg/0.6 Ml Syringe) 50 mg SUBCUT BID [facility] Last Admin: 12/15/21 08:15 Dose: 50 mg Documented By: Admin: 12/14/21 22:21 Dose: 50 mg Documented By: AM Enoxaparin Sodium (Enoxaparin 40 Mg/0.4 Ml Syringe) 40 mg SUBCUT BID [facility] Last Admin: 12/17/21 21:04 Dose: 40 mg Documented By: KEVEN Sodium Chloride (Normal Saline 0.9%) 1,000 mls @ 1,000 mls/hr IV BOLUS ONE Stop: 12/14/21 09:27 Last Admin: 12/14/21 09:34 Dose: 125 mls/hr Documented By: ALEXEY Piperacillin Sod/Tazobactam (Sod 4.5 gm/ Sodium Chloride) 100 mls @ 200 mls/hr IV NOW ONE Stop: 12/14/21 08:58 Last Infusion: 12/14/21 10:21 Dose: 0 mls/hr Documented By: Admin: 12/14/21 09:35 Dose: 200 mls/hr Documented By: ALEXEY Piperacillin Sod/Tazobactam (Sod 3.375 gm/ Sodium Chloride) 100 mls @ 25 mls/hr IV Q8H JO Last Admin: 12/15/21 12:00 Dose: 25 mls/hr Documented By: Infusion: 12/15/21 09:17 Dose: 0 mls/hr Documented By: Admin: 12/15/21 03:56 Dose: 25 mls/hr Documented By: Infusion: 12/15/21 00:01 Dose: 25 mls/hr Documented By: Admin: 12/14/21 20:01 Dose: 25 mls/hr Documented By: AM Sodium Chloride (Normal Saline 0.9%) 1,000 mls @ 60 mls/hr IV CONT JO Last Admin: 12/17/21 04:43 Dose: 60 mls/hr Documented By: Infusion: 12/17/21 04:43 Dose: 60 mls/hr Documented By: Admin: 12/16/21 12:10 Dose: 60 mls/hr Documented By: Infusion: 12/16/21 12:10 Dose: 100 mls/hr Documented By: Admin: 12/16/21 03:58 Dose: 100 mls/hr Documented By: Infusion: 12/16/21 03:58 Dose: 100 mls/hr Documented By: Admin: 12/15/21 18:31 Dose: 100 mls/hr Documented By: Infusion: 12/15/21 15:52 Dose: 100 mls/hr Documented By: Admin: 12/15/21 05:52 Dose: 100 mls/hr Documented By: Infusion: 12/15/21 05:52 Dose: 100 mls/hr Documented By: Admin: 12/14/21 20:01 Dose: 100 mls/hr Documented By: AM POTASSIUM CHLORIDE IN WATER (Potassium Cl 10 Meq/100 Ml Tala) 10 meq in 100 mls @ 100 mls/hr IV Q1H JO Stop: 12/15/21 13:29 Last Admin: 12/15/21 13:21 Dose: 100 mls/hr Documented By: Infusion: 12/15/21 12:56 Dose: 100 mls/hr Documented By: Admin: 12/15/21 11:56 Dose: 100 mls/hr Documented By: Infusion: 12/15/21 11:46 Dose: 100 mls/hr Documented By: Admin: 12/15/21 10:46 Dose: 100 mls/hr Documented By: Infusion: 12/15/21 10:17 Dose: 100 mls/hr Documented By: Admin: 12/15/21 09:17 Dose: 100 mls/hr Documented By: JUSTICE POTASSIUM CHLORIDE IN WATER (Potassium Cl 10 Meq/100 Ml Tala) 10 meq in 100 mls @ 100 mls/hr IV Q1H JO Stop: 12/16/21 13:29 Levetiracetam 1,500 mg/ Sodium (Chloride) 115 mls @ 460 mls/hr IV NOW ONE Stop: 12/17/21 19:13 Last Infusion: 12/17/21 22:01 Dose: 0 mls/hr Documented By: Admin: 12/17/21 20:33 Dose: 460 mls/hr Documented By: KEVEN Levetiracetam 2,000 mg/ Sodium (Chloride) 120 mls @ 480 mls/hr IV NOW ONE Stop: 12/17/21 20:49 Last Admin: 12/17/21 22:03 Dose: Not Given Documented By: KEVEN Levetiracetam (Levetiracetam 500 Mg/5 Ml Vial) 500 mg IV NOW ONE Stop: 12/17/21 21:01 Last Admin: 12/17/21 21:04 Dose: 500 mg Documented By: KEVEN Lorazepam (Lorazepam 2 Mg/Ml Inj) 0.5 mg IV NOW ONE Stop: 12/17/21 14:34 Last Admin: 12/17/21 14:47 Dose: 0.5 mg Documented By: CARMINE Lorazepam (Lorazepam 2 Mg/Ml Inj) 0.5 mg IV NOW ONE Stop: 12/17/21 14:51 Last Admin: 12/17/21 14:50 Dose: 0.5 mg Documented By: MADIHA Lorazepam (Lorazepam 2 Mg/Ml Inj) 0.5 mg IV Q2HR PRN PRN Reason: Anxiety Last Admin: 12/17/21 19:16 Dose: 0.5 mg Documented By: Admin: 12/17/21 18:12 Dose: 0.5 mg Documented By: BT Lorazepam (Lorazepam 2 Mg/Ml Inj) 1 mg IV Q2HR PRN PRN Reason: seizure Last Admin: 12/17/21 20:34 Dose: 1 mg Documented By: AGW Lorazepam (Lorazepam 2 Mg/Ml Inj) 1 mg IV Q1HR PRN PRN Reason: Agitation/Anxiety Last Admin: 12/18/21 00:55 Dose: 1 mg Documented By: Admin: 12/17/21 23:21 Dose: 1 mg Documented By: AGW Melatonin (Melatonin 3 Mg Tablet) 6 mg PO BEDTIME JO Last Admin: 12/16/21 23:48 Dose: Not Given Documented By: Admin: 12/15/21 20:17 Dose: 6 mg Documented By: Admin: 12/14/21 22:26 Dose: 6 mg Documented By: AM Morphine Sulfate (Morphine 2 Mg/Ml Inj) 1 mg IV Q2HR PRN PRN Reason: Pain, Moderate (4-)10 Last Admin: 12/17/21 22:48 Dose: 1 mg Documented By: AGW Ondansetron HCl (Ondansetron 4 Mg/2 Ml Inj) 4 mg IV Q4HR PRN PRN Reason: Nausea And Vomiting Polyethylene Glycol (Polyethylene Glycol 3350 17 Gm Powd.Pack) 17 gm PO DAILY PRN PRN Reason: Constipation Last Admin: 12/17/21 09:26 Dose: 17 gm Documented By: BT Potassium Chloride (Potassium Chloride 20 Meq/15 Ml Udc) 40 meq PO NOW ONE Stop: 12/12/21 18:59 Last Admin: 12/12/21 19:26 Dose: 40 meq Documented By: DKB Potassium Chloride (Potassium Chloride 20 Meq/15 Ml Udc) 40 meq PO NOW ONE Stop: 12/16/21 09:29 Last Admin: 12/16/21 09:37 Dose: 40 meq Documented By: HCW Potassium Chloride (Potassium Chloride 20 Meq Tab) 20 meq PO NOW ONE Stop: 12/16/21 18:36 Last Admin: 12/16/21 23:07 Dose: Not Given Documented By: SH Quetiapine Fumarate (Quetiapine 25 Mg Tablet) 12.5 mg PO BID [facility] Quetiapine Fumarate (Quetiapine 25 Mg Tablet) 12.5 mg PO BID [facility] Last Admin: 12/18/21 20:21 Dose: Not Given Documented By: Admin: 12/18/21 09:18 Dose: Not Given Documented By: Admin: 12/17/21 20:39 Dose: Not Given Documented By: Admin: 12/17/21 09:27 Dose: 12.5 mg Documented By: Admin: 12/16/21 16:53 Dose: 12.5 mg Documented By: HCW Scopolamine (Scopolamine 1 Patch) 1 patch TOP NOW ONE Stop: 12/16/21 20:04 Last Admin: 12/16/21 21:36 Dose: 1 patch Documented By: FELTON Sennosides (Sennosides 8.6 Mg Tablet) 8.6 mg PO DAILY PRN PRN Reason: Constipation Last Admin: 12/17/21 09:26 Dose: 8.6 mg Documented By: MIRTHA Trazodone HCl (Trazodone 100 Mg Tablet) 100 mg PO BEDTIME [facility] Last Admin: 12/16/21 23:39 Dose: 100 mg Documented By: FELTON Vital Signs Vital signs: Vital Signs - 8 hr 12/14/21 10:45 12/14/21 10:45 12/14/21 11:00 Pulse Rate 89 Respiratory Rate 22 Blood Pressure 100/57 L 120/57 L Pulse Oximetry 100 12/14/21 11:00 12/14/21 11:15 12/14/21 11:15 Pulse Rate 110 H 90 Respiratory Rate 33 H 21 Blood Pressure 111/56 L Pulse Oximetry 100 100 MDM - Psych <Lalo Fulton MD - Last Filed: 12/26/21 07:21> Differential Diagnosis Differential diagnosis: Likely acute psychosis, depression, acute anxiety and other (Dementia/Lewy body dementia) Lab Data Result diagrams: 12/17/21 04:54 12/17/21 04:54 Labs: Lab Results 12/12/21 12/12/21 12/12/21 Range/Units 16:50 16:50 16:50 WBC 5.8 (4.5-11.0) X10^3/uL RBC 4.61 (4.0-5.2) X10^6/uL Hgb 14.4 (12.0-16.0) g/dL Hct 40.7 (36-46) % MCV 88.2 (80-100) fL MCH 31.2 (26-34) PG MCHC 35.3 (30-36) % RDW 13.0 (11.6-14.8) % Plt Count 326 (150-400) X10^3/uL Neut % (Auto) 67.1 (50-75) % Lymph % (Auto) 24.6 L (25-40) % Stanley % (Auto) 7.1 (3-14) % Eos % (Auto) 0.2 L (2-4) % Baso % (Auto) 1.0 (0-2) % Neut # (Auto) 3900 (8715-3579) /uL Lymph # (Auto) 1400 (5305-4073) /uL Stanley # (Auto) 400 (0-900) /uL Eos # (Auto) 0 (0-450) /uL Baso # (Auto) 100 (0-100) /uL D-Dimer (<500) ng/ml Sodium 125 L (137-145) mmol/L Potassium 3.2 L (3.4-5.1) mmol/L Chloride 88 L (98-107) mmol/L Carbon Dioxide 28 (22-32) mmol/L BUN 7 (7-17) mg/dL Creatinine 0.48 L (0.52-1.04) mg/dL Estimated GFR > 60 (>60) mL/min BUN/Creatinine Ratio 14.6 (6-22) Glucose 98 (80-110) mg/dL Lactate (0.7-2.1) mmol/L Calcium 8.9 (8.4-10.2) mg/dL Total Bilirubin 0.8 (0.2-1.3) mg/dL AST 39 H (14-36) IU/L ALT 22 (<35) IU/L Alkaline Phosphatase 87 (38-126) U/L Troponin I (0.01-0.034) ng/mL NT-Pro-B Natriuret Pep (<125) pg/mL Total Protein 7.8 (6.3-8.2) g/dL Albumin 4.4 (3.5-5.0) g/dL Globulin 3.4 (1.7-4.1) g/dL Albumin/Globulin Ratio 1.3 (1.0-2.8) Lipase (23-300) U/L Procalcitonin (<0.5) ng/mL Urine Color Urine Appearance Urine pH (4.5-8.0) Ur Specific Garvin (1.000-1.035) Urine Protein (Negative) Urine Glucose (UA) (Negative) g/dL Urine Ketones (NEGATIVE) Urine Occult Blood (Negative) Urine Nitrate (Negative) Urine Bilirubin (NEGATIVE) Urine Urobilinogen (0.2) E.U./dL Ur Leukocyte Esterase (NEGATIVE) Urine RBC (0-5/HPF) Urine WBC (0-5/HPF) Ur Squamous Epith Cells (0-5/HPF) Amorphous Sediment Urine Bacteria (None) Ur Culture Indicated? U Opiates 300ng/mL cut (Negative) Ur Oxycodone Screen (Negative) Urine Methadone Screen (Negative) Ur Barbiturates Screen (Negative) U Tricyclic Antidepress (Negative) Ur Phencyclidine Scrn (Negative) Ur Amphetamines Screen (Negative) U Methamphetamines Scrn (Negative) Ur MDMA Scrn (Ecstasy) (Negative) U Benzodiazepines Scrn (Negative) Urine Cocaine Screen (Negative) U Marijuana (THC) Screen (Negative) Ethyl Alcohol < 10 ( - 10) mg/dL Chlamy pneumoniae PCR (Not Detect) Adenovirus (PCR) (Not Detect) B. pertussis DNA (PCR) (Not Detecte) B.parapertussis DNA PCR (Not Detecte) Coronavirus OC43 (PCR) (Not Detect) Coronavirus HKU1 (PCR) (Not Detect) Coronavirus 229E (PCR) (Not Detect) SARS-CoV-2 (PCR) (Negative) Coronavirus NL63 (PCR) (Not Detect) Human Metapneumovir PCR (Not Detect) Influenza Type A (PCR) (Not Detect) Influenza Type B (PCR) (Not Detect) M. pneumoniae (PCR) (Not Detect) Parainfluenza 1 (PCR) (Not Detect) Parainfluenza 2 (PCR) (Not Detect) Parainfluenza 3 (PCR) (Not Detect) Parainfluenza 4 (PCR) (Not Detect) RSV (PCR) (Not Detect) Entero/Rhino (PCR) (Not Detect) 12/12/21 12/12/21 12/12/21 Range/Units 17:54 17:54 17:57 WBC (4.5-11.0) X10^3/uL RBC (4.0-5.2) X10^6/uL Hgb (12.0-16.0) g/dL Hct (36-46) % MCV (80-100) fL MCH (26-34) PG MCHC (30-36) % RDW (11.6-14.8) % Plt Count (150-400) X10^3/uL Neut % (Auto) (50-75) % Lymph % (Auto) (25-40) % Stanley % (Auto) (3-14) % Eos % (Auto) (2-4) % Baso % (Auto) (0-2) % Neut # (Auto) (7908-8590) /uL Lymph # (Auto) (1360-7397) /uL Stanley # (Auto) (0-900) /uL Eos # (Auto) (0-450) /uL Baso # (Auto) (0-100) /uL D-Dimer (<500) ng/ml Sodium (137-145) mmol/L Potassium (3.4-5.1) mmol/L Chloride (98-107) mmol/L Carbon Dioxide (22-32) mmol/L BUN (7-17) mg/dL Creatinine (0.52-1.04) mg/dL Estimated GFR (>60) mL/min BUN/Creatinine Ratio (6-22) Glucose (80-110) mg/dL Lactate (0.7-2.1) mmol/L Calcium (8.4-10.2) mg/dL Total Bilirubin (0.2-1.3) mg/dL AST (14-36) IU/L ALT (<35) IU/L Alkaline Phosphatase (38-126) U/L Troponin I (0.01-0.034) ng/mL NT-Pro-B Natriuret Pep (<125) pg/mL Total Protein (6.3-8.2) g/dL Albumin (3.5-5.0) g/dL Globulin (1.7-4.1) g/dL Albumin/Globulin Ratio (1.0-2.8) Lipase (23-300) U/L Procalcitonin (<0.5) ng/mL Urine Color Yellow Urine Appearance Clear Urine pH 5.5 (4.5-8.0) Ur Specific Garvin 1.010 (1.000-1.035) Urine Protein Negative (Negative) Urine Glucose (UA) Trace H (Negative) g/dL Urine Ketones 2+ H (NEGATIVE) Urine Occult Blood 1+ H (Negative) Urine Nitrate Negative (Negative) Urine Bilirubin Negative (NEGATIVE) Urine Urobilinogen 0.2 (0.2) E.U./dL Ur Leukocyte Esterase 1+ H (NEGATIVE) Urine RBC 1-5/hpf (0-5/HPF) Urine WBC 5-10/hpf H (0-5/HPF) Ur Squamous Epith Cells 5-10 /hpf H (0-5/HPF) Amorphous Sediment 2+ Urine Bacteria Occasional (0-1) (None) Ur Culture Indicated? Cult not indicated U Opiates 300ng/mL cut Negative (Negative) Ur Oxycodone Screen Negative (Negative) Urine Methadone Screen Negative (Negative) Ur Barbiturates Screen Negative (Negative) U Tricyclic Antidepress Negative (Negative) Ur Phencyclidine Scrn Negative (Negative) Ur Amphetamines Screen Negative (Negative) U Methamphetamines Scrn Negative (Negative) Ur MDMA Scrn (Ecstasy) Negative (Negative) U Benzodiazepines Scrn Negative (Negative) Urine Cocaine Screen Negative (Negative) U Marijuana (THC) Screen Negative (Negative) Ethyl Alcohol ( - 10) mg/dL Chlamy pneumoniae PCR (Not Detect) Adenovirus (PCR) (Not Detect) B. pertussis DNA (PCR) (Not Detecte) B.parapertussis DNA PCR (Not Detecte) Coronavirus OC43 (PCR) (Not Detect) Coronavirus HKU1 (PCR) (Not Detect) Coronavirus 229E (PCR) (Not Detect) SARS-CoV-2 (PCR) Negative (Negative) Coronavirus NL63 (PCR) (Not Detect) Human Metapneumovir PCR (Not Detect) Influenza Type A (PCR) (Not Detect) Influenza Type B (PCR) (Not Detect) M. pneumoniae (PCR) (Not Detect) Parainfluenza 1 (PCR) (Not Detect) Parainfluenza 2 (PCR) (Not Detect) Parainfluenza 3 (PCR) (Not Detect) Parainfluenza 4 (PCR) (Not Detect) RSV (PCR) (Not Detect) Entero/Rhino (PCR) (Not Detect) 12/13/21 12/14/21 12/14/21 Range/Units 19:35 08:35 08:35 WBC 10.6 D (4.5-11.0) X10^3/uL RBC 4.53 (4.0-5.2) X10^6/uL Hgb 14.0 (12.0-16.0) g/dL Hct 40.3 (36-46) % MCV 88.9 (80-100) fL MCH 30.9 (26-34) PG MCHC 34.8 (30-36) % RDW 13.1 (11.6-14.8) % Plt Count 315 (150-400) X10^3/uL Neut % (Auto) 86.0 H (50-75) % Lymph % (Auto) 8.0 L (25-40) % Stanley % (Auto) 5.5 (3-14) % Eos % (Auto) 0.0 L (2-4) % Baso % (Auto) 0.5 (0-2) % Neut # (Auto) 9100 H (7480-9545) /uL Lymph # (Auto) 900 L (6348-3840) /uL Stanley # (Auto) 600 (0-900) /uL Eos # (Auto) 0 (0-450) /uL Baso # (Auto) 100 (0-100) /uL D-Dimer (<500) ng/ml Sodium 129 L 131 L (137-145) mmol/L Potassium 4.1 3.6 (3.4-5.1) mmol/L Chloride 95 L 94 L (98-107) mmol/L Carbon Dioxide 26 26 (22-32) mmol/L BUN 15 18 H (7-17) mg/dL Creatinine 0.63 0.44 L (0.52-1.04) mg/dL Estimated GFR > 60 > 60 (>60) mL/min BUN/Creatinine Ratio 23.8 H 40.9 H (6-22) Glucose 194 H 156 H (80-110) mg/dL Lactate (0.7-2.1) mmol/L Calcium 9.1 9.3 (8.4-10.2) mg/dL Total Bilirubin 0.6 (0.2-1.3) mg/dL AST 22 (14-36) IU/L ALT 11 (<35) IU/L Alkaline Phosphatase 75 (38-126) U/L Troponin I (0.01-0.034) ng/mL NT-Pro-B Natriuret Pep (<125) pg/mL Total Protein 7.5 (6.3-8.2) g/dL Albumin 4.2 (3.5-5.0) g/dL Globulin 3.3 (1.7-4.1) g/dL Albumin/Globulin Ratio 1.3 (1.0-2.8) Lipase 54 (23-300) U/L Procalcitonin 0.03 (<0.5) ng/mL Urine Color Urine Appearance Urine pH (4.5-8.0) Ur Specific Garvin (1.000-1.035) Urine Protein (Negative) Urine Glucose (UA) (Negative) g/dL Urine Ketones (NEGATIVE) Urine Occult Blood (Negative) Urine Nitrate (Negative) Urine Bilirubin (NEGATIVE) Urine Urobilinogen (0.2) E.U./dL Ur Leukocyte Esterase (NEGATIVE) Urine RBC (0-5/HPF) Urine WBC (0-5/HPF) Ur Squamous Epith Cells (0-5/HPF) Amorphous Sediment Urine Bacteria (None) Ur Culture Indicated? U Opiates 300ng/mL cut (Negative) Ur Oxycodone Screen (Negative) Urine Methadone Screen (Negative) Ur Barbiturates Screen (Negative) U Tricyclic Antidepress (Negative) Ur Phencyclidine Scrn (Negative) Ur Amphetamines Screen (Negative) U Methamphetamines Scrn (Negative) Ur MDMA Scrn (Ecstasy) (Negative) U Benzodiazepines Scrn (Negative) Urine Cocaine Screen (Negative) U Marijuana (THC) Screen (Negative) Ethyl Alcohol ( - 10) mg/dL Chlamy pneumoniae PCR (Not Detect) Adenovirus (PCR) (Not Detect) B. pertussis DNA (PCR) (Not Detecte) B.parapertussis DNA PCR (Not Detecte) Coronavirus OC43 (PCR) (Not Detect) Coronavirus HKU1 (PCR) (Not Detect) Coronavirus 229E (PCR) (Not Detect) SARS-CoV-2 (PCR) (Negative) Coronavirus NL63 (PCR) (Not Detect) Human Metapneumovir PCR (Not Detect) Influenza Type A (PCR) (Not Detect) Influenza Type B (PCR) (Not Detect) M. pneumoniae (PCR) (Not Detect) Parainfluenza 1 (PCR) (Not Detect) Parainfluenza 2 (PCR) (Not Detect) Parainfluenza 3 (PCR) (Not Detect) Parainfluenza 4 (PCR) (Not Detect) RSV (PCR) (Not Detect) Entero/Rhino (PCR) (Not Detect) 12/14/21 12/14/21 12/14/21 Range/Units 08:35 08:35 08:35 WBC (4.5-11.0) X10^3/uL RBC (4.0-5.2) X10^6/uL Hgb (12.0-16.0) g/dL Hct (36-46) % MCV (80-100) fL MCH (26-34) PG MCHC (30-36) % RDW (11.6-14.8) % Plt Count (150-400) X10^3/uL Neut % (Auto) (50-75) % Lymph % (Auto) (25-40) % Stanley % (Auto) (3-14) % Eos % (Auto) (2-4) % Baso % (Auto) (0-2) % Neut # (Auto) (0495-0588) /uL Lymph # (Auto) (9550-5338) /uL Stanley # (Auto) (0-900) /uL Eos # (Auto) (0-450) /uL Baso # (Auto) (0-100) /uL D-Dimer 3790 H (<500) ng/ml Sodium (137-145) mmol/L Potassium (3.4-5.1) mmol/L Chloride (98-107) mmol/L Carbon Dioxide (22-32) mmol/L BUN (7-17) mg/dL Creatinine (0.52-1.04) mg/dL Estimated GFR (>60) mL/min BUN/Creatinine Ratio (6-22) Glucose (80-110) mg/dL Lactate 1.1 (0.7-2.1) mmol/L Calcium (8.4-10.2) mg/dL Total Bilirubin (0.2-1.3) mg/dL AST (14-36) IU/L ALT (<35) IU/L Alkaline Phosphatase (38-126) U/L Troponin I (0.01-0.034) ng/mL NT-Pro-B Natriuret Pep 42 (<125) pg/mL Total Protein (6.3-8.2) g/dL Albumin (3.5-5.0) g/dL Globulin (1.7-4.1) g/dL Albumin/Globulin Ratio (1.0-2.8) Lipase (23-300) U/L Procalcitonin (<0.5) ng/mL Urine Color Urine Appearance Urine pH (4.5-8.0) Ur Specific Garvin (1.000-1.035) Urine Protein (Negative) Urine Glucose (UA) (Negative) g/dL Urine Ketones (NEGATIVE) Urine Occult Blood (Negative) Urine Nitrate (Negative) Urine Bilirubin (NEGATIVE) Urine Urobilinogen (0.2) E.U./dL Ur Leukocyte Esterase (NEGATIVE) Urine RBC (0-5/HPF) Urine WBC (0-5/HPF) Ur Squamous Epith Cells (0-5/HPF) Amorphous Sediment Urine Bacteria (None) Ur Culture Indicated? U Opiates 300ng/mL cut (Negative) Ur Oxycodone Screen (Negative) Urine Methadone Screen (Negative) Ur Barbiturates Screen (Negative) U Tricyclic Antidepress (Negative) Ur Phencyclidine Scrn (Negative) Ur Amphetamines Screen (Negative) U Methamphetamines Scrn (Negative) Ur MDMA Scrn (Ecstasy) (Negative) U Benzodiazepines Scrn (Negative) Urine Cocaine Screen (Negative) U Marijuana (THC) Screen (Negative) Ethyl Alcohol ( - 10) mg/dL Chlamy pneumoniae PCR (Not Detect) Adenovirus (PCR) (Not Detect) B. pertussis DNA (PCR) (Not Detecte) B.parapertussis DNA PCR (Not Detecte) Coronavirus OC43 (PCR) (Not Detect) Coronavirus HKU1 (PCR) (Not Detect) Coronavirus 229E (PCR) (Not Detect) SARS-CoV-2 (PCR) (Negative) Coronavirus NL63 (PCR) (Not Detect) Human Metapneumovir PCR (Not Detect) Influenza Type A (PCR) (Not Detect) Influenza Type B (PCR) (Not Detect) M. pneumoniae (PCR) (Not Detect) Parainfluenza 1 (PCR) (Not Detect) Parainfluenza 2 (PCR) (Not Detect) Parainfluenza 3 (PCR) (Not Detect) Parainfluenza 4 (PCR) (Not Detect) RSV (PCR) (Not Detect) Entero/Rhino (PCR) (Not Detect) 12/14/21 12/14/21 Range/Units 08:35 09:05 WBC (4.5-11.0) X10^3/uL RBC (4.0-5.2) X10^6/uL Hgb (12.0-16.0) g/dL Hct (36-46) % MCV (80-100) fL MCH (26-34) PG MCHC (30-36) % RDW (11.6-14.8) % Plt Count (150-400) X10^3/uL Neut % (Auto) (50-75) % Lymph % (Auto) (25-40) % Stanley % (Auto) (3-14) % Eos % (Auto) (2-4) % Baso % (Auto) (0-2) % Neut # (Auto) (9503-1271) /uL Lymph # (Auto) (5135-8802) /uL Stanley # (Auto) (0-900) /uL Eos # (Auto) (0-450) /uL Baso # (Auto) (0-100) /uL D-Dimer (<500) ng/ml Sodium (137-145) mmol/L Potassium (3.4-5.1) mmol/L Chloride (98-107) mmol/L Carbon Dioxide (22-32) mmol/L BUN (7-17) mg/dL Creatinine (0.52-1.04) mg/dL Estimated GFR (>60) mL/min BUN/Creatinine Ratio (6-22) Glucose (80-110) mg/dL Lactate (0.7-2.1) mmol/L Calcium (8.4-10.2) mg/dL Total Bilirubin (0.2-1.3) mg/dL AST (14-36) IU/L ALT (<35) IU/L Alkaline Phosphatase (38-126) U/L Troponin I < 0.012 (0.01-0.034) ng/mL NT-Pro-B Natriuret Pep (<125) pg/mL Total Protein (6.3-8.2) g/dL Albumin (3.5-5.0) g/dL Globulin (1.7-4.1) g/dL Albumin/Globulin Ratio (1.0-2.8) Lipase (23-300) U/L Procalcitonin (<0.5) ng/mL Urine Color Urine Appearance Urine pH (4.5-8.0) Ur Specific Garvin (1.000-1.035) Urine Protein (Negative) Urine Glucose (UA) (Negative) g/dL Urine Ketones (NEGATIVE) Urine Occult Blood (Negative) Urine Nitrate (Negative) Urine Bilirubin (NEGATIVE) Urine Urobilinogen (0.2) E.U./dL Ur Leukocyte Esterase (NEGATIVE) Urine RBC (0-5/HPF) Urine WBC (0-5/HPF) Ur Squamous Epith Cells (0-5/HPF) Amorphous Sediment Urine Bacteria (None) Ur Culture Indicated? U Opiates 300ng/mL cut (Negative) Ur Oxycodone Screen (Negative) Urine Methadone Screen (Negative) Ur Barbiturates Screen (Negative) U Tricyclic Antidepress (Negative) Ur Phencyclidine Scrn (Negative) Ur Amphetamines Screen (Negative) U Methamphetamines Scrn (Negative) Ur MDMA Scrn (Ecstasy) (Negative) U Benzodiazepines Scrn (Negative) Urine Cocaine Screen (Negative) U Marijuana (THC) Screen (Negative) Ethyl Alcohol ( - 10) mg/dL Chlamy pneumoniae PCR Not detected (Not Detect) Adenovirus (PCR) Not detected (Not Detect) B. pertussis DNA (PCR) Not detected (Not Detecte) B.parapertussis DNA PCR Not detected (Not Detecte) Coronavirus OC43 (PCR) Not detected (Not Detect) Coronavirus HKU1 (PCR) Not detected (Not Detect) Coronavirus 229E (PCR) Not detected (Not Detect) SARS-CoV-2 (PCR) Not detected (Negative) Coronavirus NL63 (PCR) Not detected (Not Detect) Human Metapneumovir PCR Not detected (Not Detect) Influenza Type A (PCR) Not detected (Not Detect) Influenza Type B (PCR) Not detected (Not Detect) M. pneumoniae (PCR) Not detected (Not Detect) Parainfluenza 1 (PCR) Not detected (Not Detect) Parainfluenza 2 (PCR) Not detected (Not Detect) Parainfluenza 3 (PCR) Not detected (Not Detect) Parainfluenza 4 (PCR) Not detected (Not Detect) RSV (PCR) Not detected (Not Detect) Entero/Rhino (PCR) Not detected (Not Detect) Urine Dip Bedside Urine Glucose Negative Bedside Urine Bilirubin - Negative Bedside Urine Ketone + 15 Urine Specific Garvin 1.020 Bedside Urine Occult Blood +/- Bedside Urine pH 6.0 Bedside Urine Protein - Negative Bedside Urine Urobilinogen - Negative Bedside Urine Nitrite - Negative Bedside Urine Leukocytes +/- [address] scan - head: Radiologist's Impression: [address] [address] [address] Scan Report Signed Patient: Kiera Levin MR#: [id number] : 1950 Acct:[id number] Age/Sex: 71 / F Date of Service: 12/12/21 Loc: ED Accession Number: [id number] ?? Procedure: CT head/brain wo con Ordering Provider: Rafael Gray D.O. PROCEDURE:? CT HEAD/BRAIN WO CON ? INDICATIONS:? altered ? TECHNIQUE:? Noncontrast 4.5 mm thick angled axial sections acquired from the foramen magnum to the vertex, with coronal and sagittal reformats.? For radiation dose reduction, the following was used:? automated exposure control, adjustment of mA and/or kV according to patient size.? ? COMPARISON:? [facility], MR, MR BRAIN WITH/WITHOUT CONTRAST, 05/15/2021, 13:20. ? FINDINGS:? Image quality:? Excellent.? ? CSF spaces:? Basal cisterns are patent.? No extra-axial fluid collections.? The ventricles are symmetric in size and shape.? ? Brain:? No intracranial bleeds or masses.? There is mild cerebral volume loss for age, with resultant ventricular and sulcal prominence.? There are mild periventricular and deep white matter chronic small vessel ischemic changes.? There is intracranial internal carotid artery atherosclerosis.? ? Skull and face:? Calvarium and visualized facial bones appear intact, without suspicious lesions.? ? Sinuses:? Visualized sinuses and mastoids are clear.? ? IMPRESSION:? ? 1. No acute intracranial abnormalities. ? 2. Cerebral volume loss and chronic microvascular ischemic changes. ? ? ? Dictated by: Katy Durán M.D. on 12/12/2021 at 19:36 ? ? Approved by: Katy Durán M.D. on 12/12/2021 at 19:38 ? ECG Data Interpretation: Normal sinus rhythm rate [address] elevation or depression <Jean Carlos Pratt DO - Last Filed: 12/14/21 06:57> Lab Data Labs: Lab Results 12/12/21 12/12/21 12/12/21 Range/Units 16:50 16:50 16:50 WBC 5.8 (4.5-11.0) X10^3/uL RBC 4.61 (4.0-5.2) X10^6/uL Hgb 14.4 (12.0-16.0) g/dL Hct 40.7 (36-46) % MCV 88.2 (80-100) fL MCH 31.2 (26-34) PG MCHC 35.3 (30-36) % RDW 13.0 (11.6-14.8) % Plt Count 326 (150-400) X10^3/uL Neut % (Auto) 67.1 (50-75) % Lymph % (Auto) 24.6 L (25-40) % Stanley % (Auto) 7.1 (3-14) % Eos % (Auto) 0.2 L (2-4) % Baso % (Auto) 1.0 (0-2) % Neut # (Auto) 3900 (1762-8971) /uL Lymph # (Auto) 1400 (2055-3507) /uL Stanley # (Auto) 400 (0-900) /uL Eos # (Auto) 0 (0-450) /uL Baso # (Auto) 100 (0-100) /uL D-Dimer (<500) ng/ml Sodium 125 L (137-145) mmol/L Potassium 3.2 L (3.4-5.1) mmol/L Chloride 88 L (98-107) mmol/L Carbon Dioxide 28 (22-32) mmol/L BUN 7 (7-17) mg/dL Creatinine 0.48 L (0.52-1.04) mg/dL Estimated GFR > 60 (>60) mL/min BUN/Creatinine Ratio 14.6 (6-22) Glucose 98 (80-110) mg/dL Lactate (0.7-2.1) mmol/L Calcium 8.9 (8.4-10.2) mg/dL Total Bilirubin 0.8 (0.2-1.3) mg/dL AST 39 H (14-36) IU/L ALT 22 (<35) IU/L Alkaline Phosphatase 87 (38-126) U/L Troponin I (0.01-0.034) ng/mL NT-Pro-B Natriuret Pep (<125) pg/mL Total Protein 7.8 (6.3-8.2) g/dL Albumin 4.4 (3.5-5.0) g/dL Globulin 3.4 (1.7-4.1) g/dL Albumin/Globulin Ratio 1.3 (1.0-2.8) Lipase (23-300) U/L Procalcitonin (<0.5) ng/mL Urine Color Urine Appearance Urine pH (4.5-8.0) Ur Specific Garvin (1.000-1.035) Urine Protein (Negative) Urine Glucose (UA) (Negative) g/dL Urine Ketones (NEGATIVE) Urine Occult Blood (Negative) Urine Nitrate (Negative) Urine Bilirubin (NEGATIVE) Urine Urobilinogen (0.2) E.U./dL Ur Leukocyte Esterase (NEGATIVE) Urine RBC (0-5/HPF) Urine WBC (0-5/HPF) Ur Squamous Epith Cells (0-5/HPF) Amorphous Sediment Urine Bacteria (None) Ur Culture Indicated? U Opiates 300ng/mL cut (Negative) Ur Oxycodone Screen (Negative) Urine Methadone Screen (Negative) Ur Barbiturates Screen (Negative) U Tricyclic Antidepress (Negative) Ur Phencyclidine Scrn (Negative) Ur Amphetamines Screen (Negative) U Methamphetamines Scrn (Negative) Ur MDMA Scrn (Ecstasy) (Negative) U Benzodiazepines Scrn (Negative) Urine Cocaine Screen (Negative) U Marijuana (THC) Screen (Negative) Ethyl Alcohol < 10 ( - 10) mg/dL Chlamy pneumoniae PCR (Not Detect) Adenovirus (PCR) (Not Detect) B. pertussis DNA (PCR) (Not Detecte) B.parapertussis DNA PCR (Not Detecte) Coronavirus OC43 (PCR) (Not Detect) Coronavirus HKU1 (PCR) (Not Detect) Coronavirus 229E (PCR) (Not Detect) SARS-CoV-2 (PCR) (Negative) Coronavirus NL63 (PCR) (Not Detect) Human Metapneumovir PCR (Not Detect) Influenza Type A (PCR) (Not Detect) Influenza Type B (PCR) (Not Detect) M. pneumoniae (PCR) (Not Detect) Parainfluenza 1 (PCR) (Not Detect) Parainfluenza 2 (PCR) (Not Detect) Parainfluenza 3 (PCR) (Not Detect) Parainfluenza 4 (PCR) (Not Detect) RSV (PCR) (Not Detect) Entero/Rhino (PCR) (Not Detect) 12/12/21 12/12/21 12/12/21 Range/Units 17:54 17:54 17:57 WBC (4.5-11.0) X10^3/uL RBC (4.0-5.2) X10^6/uL Hgb (12.0-16.0) g/dL Hct (36-46) % MCV (80-100) fL MCH (26-34) PG MCHC (30-36) % RDW (11.6-14.8) % Plt Count (150-400) X10^3/uL Neut % (Auto) (50-75) % Lymph % (Auto) (25-40) % Stanley % (Auto) (3-14) % Eos % (Auto) (2-4) % Baso % (Auto) (0-2) % Neut # (Auto) (9658-2344) /uL Lymph # (Auto) (5584-7942) /uL Stanley # (Auto) (0-900) /uL Eos # (Auto) (0-450) /uL Baso # (Auto) (0-100) /uL D-Dimer (<500) ng/ml Sodium (137-145) mmol/L Potassium (3.4-5.1) mmol/L Chloride (98-107) mmol/L Carbon Dioxide (22-32) mmol/L BUN (7-17) mg/dL Creatinine (0.52-1.04) mg/dL Estimated GFR (>60) mL/min BUN/Creatinine Ratio (6-22) Glucose (80-110) mg/dL Lactate (0.7-2.1) mmol/L Calcium (8.4-10.2) mg/dL Total Bilirubin (0.2-1.3) mg/dL AST (14-36) IU/L ALT (<35) IU/L Alkaline Phosphatase (38-126) U/L Troponin I (0.01-0.034) ng/mL NT-Pro-B Natriuret Pep (<125) pg/mL Total Protein (6.3-8.2) g/dL Albumin (3.5-5.0) g/dL Globulin (1.7-4.1) g/dL Albumin/Globulin Ratio (1.0-2.8) Lipase (23-300) U/L Procalcitonin (<0.5) ng/mL Urine Color Yellow Urine Appearance Clear Urine pH 5.5 (4.5-8.0) Ur Specific Garvin 1.010 (1.000-1.035) Urine Protein Negative (Negative) Urine Glucose (UA) Trace H (Negative) g/dL Urine Ketones 2+ H (NEGATIVE) Urine Occult Blood 1+ H (Negative) Urine Nitrate Negative (Negative) Urine Bilirubin Negative (NEGATIVE) Urine Urobilinogen 0.2 (0.2) E.U./dL Ur Leukocyte Esterase 1+ H (NEGATIVE) Urine RBC 1-5/hpf (0-5/HPF) Urine WBC 5-10/hpf H (0-5/HPF) Ur Squamous Epith Cells 5-10 /hpf H (0-5/HPF) Amorphous Sediment 2+ Urine Bacteria Occasional (0-1) (None) Ur Culture Indicated? Cult not indicated U Opiates 300ng/mL cut Negative (Negative) Ur Oxycodone Screen Negative (Negative) Urine Methadone Screen Negative (Negative) Ur Barbiturates Screen Negative (Negative) U Tricyclic Antidepress Negative (Negative) Ur Phencyclidine Scrn Negative (Negative) Ur Amphetamines Screen Negative (Negative) U Methamphetamines Scrn Negative (Negative) Ur MDMA Scrn (Ecstasy) Negative (Negative) U Benzodiazepines Scrn Negative (Negative) Urine Cocaine Screen Negative (Negative) U Marijuana (THC) Screen Negative (Negative) Ethyl Alcohol ( - 10) mg/dL Chlamy pneumoniae PCR (Not Detect) Adenovirus (PCR) (Not Detect) B. pertussis DNA (PCR) (Not Detecte) B.parapertussis DNA PCR (Not Detecte) Coronavirus OC43 (PCR) (Not Detect) Coronavirus HKU1 (PCR) (Not Detect) Coronavirus 229E (PCR) (Not Detect) SARS-CoV-2 (PCR) Negative (Negative) Coronavirus NL63 (PCR) (Not Detect) Human Metapneumovir PCR (Not Detect) Influenza Type A (PCR) (Not Detect) Influenza Type B (PCR) (Not Detect) M. pneumoniae (PCR) (Not Detect) Parainfluenza 1 (PCR) (Not Detect) Parainfluenza 2 (PCR) (Not Detect) Parainfluenza 3 (PCR) (Not Detect) Parainfluenza 4 (PCR) (Not Detect) RSV (PCR) (Not Detect) Entero/Rhino (PCR) (Not Detect) 12/13/21 12/14/21 12/14/21 Range/Units 19:35 08:35 08:35 WBC 10.6 D (4.5-11.0) X10^3/uL RBC 4.53 (4.0-5.2) X10^6/uL Hgb 14.0 (12.0-16.0) g/dL Hct 40.3 (36-46) % MCV 88.9 (80-100) fL MCH 30.9 (26-34) PG MCHC 34.8 (30-36) % RDW 13.1 (11.6-14.8) % Plt Count 315 (150-400) X10^3/uL Neut % (Auto) 86.0 H (50-75) % Lymph % (Auto) 8.0 L (25-40) % Stanley % (Auto) 5.5 (3-14) % Eos % (Auto) 0.0 L (2-4) % Baso % (Auto) 0.5 (0-2) % Neut # (Auto) 9100 H (6884-0008) /uL Lymph # (Auto) 900 L (8772-1582) /uL Stanley # (Auto) 600 (0-900) /uL Eos # (Auto) 0 (0-450) /uL Baso # (Auto) 100 (0-100) /uL D-Dimer (<500) ng/ml Sodium 129 L 131 L (137-145) mmol/L Potassium 4.1 3.6 (3.4-5.1) mmol/L Chloride 95 L 94 L (98-107) mmol/L Carbon Dioxide 26 26 (22-32) mmol/L BUN 15 18 H (7-17) mg/dL Creatinine 0.63 0.44 L (0.52-1.04) mg/dL Estimated GFR > 60 > 60 (>60) mL/min BUN/Creatinine Ratio 23.8 H 40.9 H (6-22) Glucose 194 H 156 H (80-110) mg/dL Lactate (0.7-2.1) mmol/L Calcium 9.1 9.3 (8.4-10.2) mg/dL Total Bilirubin 0.6 (0.2-1.3) mg/dL AST 22 (14-36) IU/L ALT 11 (<35) IU/L Alkaline Phosphatase 75 (38-126) U/L Troponin I (0.01-0.034) ng/mL NT-Pro-B Natriuret Pep (<125) pg/mL Total Protein 7.5 (6.3-8.2) g/dL Albumin 4.2 (3.5-5.0) g/dL Globulin 3.3 (1.7-4.1) g/dL Albumin/Globulin Ratio 1.3 (1.0-2.8) Lipase 54 (23-300) U/L Procalcitonin 0.03 (<0.5) ng/mL Urine Color Urine Appearance Urine pH (4.5-8.0) Ur Specific Garvin (1.000-1.035) Urine Protein (Negative) Urine Glucose (UA) (Negative) g/dL Urine Ketones (NEGATIVE) Urine Occult Blood (Negative) Urine Nitrate (Negative) Urine Bilirubin (NEGATIVE) Urine Urobilinogen (0.2) E.U./dL Ur Leukocyte Esterase (NEGATIVE) Urine RBC (0-5/HPF) Urine WBC (0-5/HPF) Ur Squamous Epith Cells (0-5/HPF) Amorphous Sediment Urine Bacteria (None) Ur Culture Indicated? U Opiates 300ng/mL cut (Negative) Ur Oxycodone Screen (Negative) Urine Methadone Screen (Negative) Ur Barbiturates Screen (Negative) U Tricyclic Antidepress (Negative) Ur Phencyclidine Scrn (Negative) Ur Amphetamines Screen (Negative) U Methamphetamines Scrn (Negative) Ur MDMA Scrn (Ecstasy) (Negative) U Benzodiazepines Scrn (Negative) Urine Cocaine Screen (Negative) U Marijuana (THC) Screen (Negative) Ethyl Alcohol ( - 10) mg/dL Chlamy pneumoniae PCR (Not Detect) Adenovirus (PCR) (Not Detect) B. pertussis DNA (PCR) (Not Detecte) B.parapertussis DNA PCR (Not Detecte) Coronavirus OC43 (PCR) (Not Detect) Coronavirus HKU1 (PCR) (Not Detect) Coronavirus 229E (PCR) (Not Detect) SARS-CoV-2 (PCR) (Negative) Coronavirus NL63 (PCR) (Not Detect) Human Metapneumovir PCR (Not Detect) Influenza Type A (PCR) (Not Detect) Influenza Type B (PCR) (Not Detect) M. pneumoniae (PCR) (Not Detect) Parainfluenza 1 (PCR) (Not Detect) Parainfluenza 2 (PCR) (Not Detect) Parainfluenza 3 (PCR) (Not Detect) Parainfluenza 4 (PCR) (Not Detect) RSV (PCR) (Not Detect) Entero/Rhino (PCR) (Not Detect) 12/14/21 12/14/21 12/14/21 Range/Units 08:35 08:35 08:35 WBC (4.5-11.0) X10^3/uL RBC (4.0-5.2) X10^6/uL Hgb (12.0-16.0) g/dL Hct (36-46) % MCV (80-100) fL MCH (26-34) PG MCHC (30-36) % RDW (11.6-14.8) % Plt Count (150-400) X10^3/uL Neut % (Auto) (50-75) % Lymph % (Auto) (25-40) % Stanley % (Auto) (3-14) % Eos % (Auto) (2-4) % Baso % (Auto) (0-2) % Neut # (Auto) (3224-0604) /uL Lymph # (Auto) (8375-3493) /uL Stanley # (Auto) (0-900) /uL Eos # (Auto) (0-450) /uL Baso # (Auto) (0-100) /uL D-Dimer 3790 H (<500) ng/ml Sodium (137-145) mmol/L Potassium (3.4-5.1) mmol/L Chloride (98-107) mmol/L Carbon Dioxide (22-32) mmol/L BUN (7-17) mg/dL Creatinine (0.52-1.04) mg/dL Estimated GFR (>60) mL/min BUN/Creatinine Ratio (6-22) Glucose (80-110) mg/dL Lactate 1.1 (0.7-2.1) mmol/L Calcium (8.4-10.2) mg/dL Total Bilirubin (0.2-1.3) mg/dL AST (14-36) IU/L ALT (<35) IU/L Alkaline Phosphatase (38-126) U/L Troponin I (0.01-0.034) ng/mL NT-Pro-B Natriuret Pep 42 (<125) pg/mL Total Protein (6.3-8.2) g/dL Albumin (3.5-5.0) g/dL Globulin (1.7-4.1) g/dL Albumin/Globulin Ratio (1.0-2.8) Lipase (23-300) U/L Procalcitonin (<0.5) ng/mL Urine Color Urine Appearance Urine pH (4.5-8.0) Ur Specific Garvin (1.000-1.035) Urine Protein (Negative) Urine Glucose (UA) (Negative) g/dL Urine Ketones (NEGATIVE) Urine Occult Blood (Negative) Urine Nitrate (Negative) Urine Bilirubin (NEGATIVE) Urine Urobilinogen (0.2) E.U./dL Ur Leukocyte Esterase (NEGATIVE) Urine RBC (0-5/HPF) Urine WBC (0-5/HPF) Ur Squamous Epith Cells (0-5/HPF) Amorphous Sediment Urine Bacteria (None) Ur Culture Indicated? U Opiates 300ng/mL cut (Negative) Ur Oxycodone Screen (Negative) Urine Methadone Screen (Negative) Ur Barbiturates Screen (Negative) U Tricyclic Antidepress (Negative) Ur Phencyclidine Scrn (Negative) Ur Amphetamines Screen (Negative) U Methamphetamines Scrn (Negative) Ur MDMA Scrn (Ecstasy) (Negative) U Benzodiazepines Scrn (Negative) Urine Cocaine Screen (Negative) U Marijuana (THC) Screen (Negative) Ethyl Alcohol ( - 10) mg/dL Chlamy pneumoniae PCR (Not Detect) Adenovirus (PCR) (Not Detect) B. pertussis DNA (PCR) (Not Detecte) B.parapertussis DNA PCR (Not Detecte) Coronavirus OC43 (PCR) (Not Detect) Coronavirus HKU1 (PCR) (Not Detect) Coronavirus 229E (PCR) (Not Detect) SARS-CoV-2 (PCR) (Negative) Coronavirus NL63 (PCR) (Not Detect) Human Metapneumovir PCR (Not Detect) Influenza Type A (PCR) (Not Detect) Influenza Type B (PCR) (Not Detect) M. pneumoniae (PCR) (Not Detect) Parainfluenza 1 (PCR) (Not Detect) Parainfluenza 2 (PCR) (Not Detect) Parainfluenza 3 (PCR) (Not Detect) Parainfluenza 4 (PCR) (Not Detect) RSV (PCR) (Not Detect) Entero/Rhino (PCR) (Not Detect) 12/14/21 12/14/21 Range/Units 08:35 09:05 WBC (4.5-11.0) X10^3/uL RBC (4.0-5.2) X10^6/uL Hgb (12.0-16.0) g/dL Hct (36-46) % MCV (80-100) fL MCH (26-34) PG MCHC (30-36) % RDW (11.6-14.8) % Plt Count (150-400) X10^3/uL Neut % (Auto) (50-75) % Lymph % (Auto) (25-40) % Stanley % (Auto) (3-14) % Eos % (Auto) (2-4) % Baso % (Auto) (0-2) % Neut # (Auto) (2199-9212) /uL Lymph # (Auto) (0790-5808) /uL Stanley # (Auto) (0-900) /uL Eos # (Auto) (0-450) /uL Baso # (Auto) (0-100) /uL D-Dimer (<500) ng/ml Sodium (137-145) mmol/L Potassium (3.4-5.1) mmol/L Chloride (98-107) mmol/L Carbon Dioxide (22-32) mmol/L BUN (7-17) mg/dL Creatinine (0.52-1.04) mg/dL Estimated GFR (>60) mL/min BUN/Creatinine Ratio (6-22) Glucose (80-110) mg/dL Lactate (0.7-2.1) mmol/L Calcium (8.4-10.2) mg/dL Total Bilirubin (0.2-1.3) mg/dL AST (14-36) IU/L ALT (<35) IU/L Alkaline Phosphatase (38-126) U/L Troponin I < 0.012 (0.01-0.034) ng/mL NT-Pro-B Natriuret Pep (<125) pg/mL Total Protein (6.3-8.2) g/dL Albumin (3.5-5.0) g/dL Globulin (1.7-4.1) g/dL Albumin/Globulin Ratio (1.0-2.8) Lipase (23-300) U/L Procalcitonin (<0.5) ng/mL Urine Color Urine Appearance Urine pH (4.5-8.0) Ur Specific Garvin (1.000-1.035) Urine Protein (Negative) Urine Glucose (UA) (Negative) g/dL Urine Ketones (NEGATIVE) Urine Occult Blood (Negative) Urine Nitrate (Negative) Urine Bilirubin (NEGATIVE) Urine Urobilinogen (0.2) E.U./dL Ur Leukocyte Esterase (NEGATIVE) Urine RBC (0-5/HPF) Urine WBC (0-5/HPF) Ur Squamous Epith Cells (0-5/HPF) Amorphous Sediment Urine Bacteria (None) Ur Culture Indicated? U Opiates 300ng/mL cut (Negative) Ur Oxycodone Screen (Negative) Urine Methadone Screen (Negative) Ur Barbiturates Screen (Negative) U Tricyclic Antidepress (Negative) Ur Phencyclidine Scrn (Negative) Ur Amphetamines Screen (Negative) U Methamphetamines Scrn (Negative) Ur MDMA Scrn (Ecstasy) (Negative) U Benzodiazepines Scrn (Negative) Urine Cocaine Screen (Negative) U Marijuana (THC) Screen (Negative) Ethyl Alcohol ( - 10) mg/dL Chlamy pneumoniae PCR Not detected (Not Detect) Adenovirus (PCR) Not detected (Not Detect) B. pertussis DNA (PCR) Not detected (Not Detecte) B.parapertussis DNA PCR Not detected (Not Detecte) Coronavirus OC43 (PCR) Not detected (Not Detect) Coronavirus HKU1 (PCR) Not detected (Not Detect) Coronavirus 229E (PCR) Not detected (Not Detect) SARS-CoV-2 (PCR) Not detected (Negative) Coronavirus NL63 (PCR) Not detected (Not Detect) Human Metapneumovir PCR Not detected (Not Detect) Influenza Type A (PCR) Not detected (Not Detect) Influenza Type B (PCR) Not detected (Not Detect) M. pneumoniae (PCR) Not detected (Not Detect) Parainfluenza 1 (PCR) Not detected (Not Detect) Parainfluenza 2 (PCR) Not detected (Not Detect) Parainfluenza 3 (PCR) Not detected (Not Detect) Parainfluenza 4 (PCR) Not detected (Not Detect) RSV (PCR) Not detected (Not Detect) Entero/Rhino (PCR) Not detected (Not Detect) Urine Dip Bedside Urine Glucose Negative Bedside Urine Bilirubin - Negative Bedside Urine Ketone + 15 Urine Specific Garvin 1.020 Bedside Urine Occult Blood +/- Bedside Urine pH 6.0 Bedside Urine Protein - Negative Bedside Urine Urobilinogen - Negative Bedside Urine Nitrite - Negative Bedside Urine Leukocytes +/- 15 Esterase MDM Narrative Medical decision making narrative: Dr Pratt overnight 12/13-12/14. Received turned over. He would patient's history and physical and labs. Patient is medically cleared. Has been stable overnight. DCR read dispatch today to evaluate patient to evaluate for disposition. Care turned over to Dr. luz reed continue with disposition. <Mariya Escobar DO - Last Filed: 12/14/21 18:43> Lab Data Labs: Lab Results 12/12/21 12/12/21 12/12/21 Range/Units 16:50 16:50 16:50 WBC 5.8 (4.5-11.0) X10^3/uL RBC 4.61 (4.0-5.2) X10^6/uL Hgb 14.4 (12.0-16.0) g/dL Hct 40.7 (36-46) % MCV 88.2 (80-100) fL MCH 31.2 (26-34) PG MCHC 35.3 (30-36) % RDW 13.0 (11.6-14.8) % Plt Count 326 (150-400) X10^3/uL Neut % (Auto) 67.1 (50-75) % Lymph % (Auto) 24.6 L (25-40) % Stanley % (Auto) 7.1 (3-14) % Eos % (Auto) 0.2 L (2-4) % Baso % (Auto) 1.0 (0-2) % Neut # (Auto) 3900 (8153-9680) /uL Lymph # (Auto) 1400 (1933-6879) /uL Stanley # (Auto) 400 (0-900) /uL Eos # (Auto) 0 (0-450) /uL Baso # (Auto) 100 (0-100) /uL D-Dimer (<500) ng/ml Sodium 125 L (137-145) mmol/L Potassium 3.2 L (3.4-5.1) mmol/L Chloride 88 L (98-107) mmol/L Carbon Dioxide 28 (22-32) mmol/L BUN 7 (7-17) mg/dL Creatinine 0.48 L (0.52-1.04) mg/dL Estimated GFR > 60 (>60) mL/min BUN/Creatinine Ratio 14.6 (6-22) Glucose 98 (80-110) mg/dL Lactate (0.7-2.1) mmol/L Calcium 8.9 (8.4-10.2) mg/dL Total Bilirubin 0.8 (0.2-1.3) mg/dL AST 39 H (14-36) IU/L ALT 22 (<35) IU/L Alkaline Phosphatase 87 (38-126) U/L Troponin I (0.01-0.034) ng/mL NT-Pro-B Natriuret Pep (<125) pg/mL Total Protein 7.8 (6.3-8.2) g/dL Albumin 4.4 (3.5-5.0) g/dL Globulin 3.4 (1.7-4.1) g/dL Albumin/Globulin Ratio 1.3 (1.0-2.8) Lipase (23-300) U/L Procalcitonin (<0.5) ng/mL Urine Color Urine Appearance Urine pH (4.5-8.0) Ur Specific Garvin (1.000-1.035) Urine Protein (Negative) Urine Glucose (UA) (Negative) g/dL Urine Ketones (NEGATIVE) Urine Occult Blood (Negative) Urine Nitrate (Negative) Urine Bilirubin (NEGATIVE) Urine Urobilinogen (0.2) E.U./dL Ur Leukocyte Esterase (NEGATIVE) Urine RBC (0-5/HPF) Urine WBC (0-5/HPF) Ur Squamous Epith Cells (0-5/HPF) Amorphous Sediment Urine Bacteria (None) Ur Culture Indicated? U Opiates 300ng/mL cut (Negative) Ur Oxycodone Screen (Negative) Urine Methadone Screen (Negative) Ur Barbiturates Screen (Negative) U Tricyclic Antidepress (Negative) Ur Phencyclidine Scrn (Negative) Ur Amphetamines Screen (Negative) U Methamphetamines Scrn (Negative) Ur MDMA Scrn (Ecstasy) (Negative) U Benzodiazepines Scrn (Negative) Urine Cocaine Screen (Negative) U Marijuana (THC) Screen (Negative) Ethyl Alcohol < 10 ( - 10) mg/dL Chlamy pneumoniae PCR (Not Detect) Adenovirus (PCR) (Not Detect) B. pertussis DNA (PCR) (Not Detecte) B.parapertussis DNA PCR (Not Detecte) Coronavirus OC43 (PCR) (Not Detect) Coronavirus HKU1 (PCR) (Not Detect) Coronavirus 229E (PCR) (Not Detect) SARS-CoV-2 (PCR) (Negative) Coronavirus NL63 (PCR) (Not Detect) Human Metapneumovir PCR (Not Detect) Influenza Type A (PCR) (Not Detect) Influenza Type B (PCR) (Not Detect) M. pneumoniae (PCR) (Not Detect) Parainfluenza 1 (PCR) (Not Detect) Parainfluenza 2 (PCR) (Not Detect) Parainfluenza 3 (PCR) (Not Detect) Parainfluenza 4 (PCR) (Not Detect) RSV (PCR) (Not Detect) Entero/Rhino (PCR) (Not Detect) 12/12/21 12/12/21 12/12/21 Range/Units 17:54 17:54 17:57 WBC (4.5-11.0) X10^3/uL RBC (4.0-5.2) X10^6/uL Hgb (12.0-16.0) g/dL Hct (36-46) % MCV (80-100) fL MCH (26-34) PG MCHC (30-36) % RDW (11.6-14.8) % Plt Count (150-400) X10^3/uL Neut % (Auto) (50-75) % Lymph % (Auto) (25-40) % Stanley % (Auto) (3-14) % Eos % (Auto) (2-4) % Baso % (Auto) (0-2) % Neut # (Auto) (7334-7257) /uL Lymph # (Auto) (7458-8046) /uL Stanley # (Auto) (0-900) /uL Eos # (Auto) (0-450) /uL Baso # (Auto) (0-100) /uL D-Dimer (<500) ng/ml Sodium (137-145) mmol/L Potassium (3.4-5.1) mmol/L Chloride (98-107) mmol/L Carbon Dioxide (22-32) mmol/L BUN (7-17) mg/dL Creatinine (0.52-1.04) mg/dL Estimated GFR (>60) mL/min BUN/Creatinine Ratio (6-22) Glucose (80-110) mg/dL Lactate (0.7-2.1) mmol/L Calcium (8.4-10.2) mg/dL Total Bilirubin (0.2-1.3) mg/dL AST (14-36) IU/L ALT (<35) IU/L Alkaline Phosphatase (38-126) U/L Troponin I (0.01-0.034) ng/mL NT-Pro-B Natriuret Pep (<125) pg/mL Total Protein (6.3-8.2) g/dL Albumin (3.5-5.0) g/dL Globulin (1.7-4.1) g/dL Albumin/Globulin Ratio (1.0-2.8) Lipase (23-300) U/L Procalcitonin (<0.5) ng/mL Urine Color Yellow Urine Appearance Clear Urine pH 5.5 (4.5-8.0) Ur Specific Garvin 1.010 (1.000-1.035) Urine Protein Negative (Negative) Urine Glucose (UA) Trace H (Negative) g/dL Urine Ketones 2+ H (NEGATIVE) Urine Occult Blood 1+ H (Negative) Urine Nitrate Negative (Negative) Urine Bilirubin Negative (NEGATIVE) Urine Urobilinogen 0.2 (0.2) E.U./dL Ur Leukocyte Esterase 1+ H (NEGATIVE) Urine RBC 1-5/hpf (0-5/HPF) Urine WBC 5-10/hpf H (0-5/HPF) Ur Squamous Epith Cells 5-10 /hpf H (0-5/HPF) Amorphous Sediment 2+ Urine Bacteria Occasional (0-1) (None) Ur Culture Indicated? Cult not indicated U Opiates 300ng/mL cut Negative (Negative) Ur Oxycodone Screen Negative (Negative) Urine Methadone Screen Negative (Negative) Ur Barbiturates Screen Negative (Negative) U Tricyclic Antidepress Negative (Negative) Ur Phencyclidine Scrn Negative (Negative) Ur Amphetamines Screen Negative (Negative) U Methamphetamines Scrn Negative (Negative) Ur MDMA Scrn (Ecstasy) Negative (Negative) U Benzodiazepines Scrn Negative (Negative) Urine Cocaine Screen Negative (Negative) U Marijuana (THC) Screen Negative (Negative) Ethyl Alcohol ( - 10) mg/dL Chlamy pneumoniae PCR (Not Detect) Adenovirus (PCR) (Not Detect) B. pertussis DNA (PCR) (Not Detecte) B.parapertussis DNA PCR (Not Detecte) Coronavirus OC43 (PCR) (Not Detect) Coronavirus HKU1 (PCR) (Not Detect) Coronavirus 229E (PCR) (Not Detect) SARS-CoV-2 (PCR) Negative (Negative) Coronavirus NL63 (PCR) (Not Detect) Human Metapneumovir PCR (Not Detect) Influenza Type A (PCR) (Not Detect) Influenza Type B (PCR) (Not Detect) M. pneumoniae (PCR) (Not Detect) Parainfluenza 1 (PCR) (Not Detect) Parainfluenza 2 (PCR) (Not Detect) Parainfluenza 3 (PCR) (Not Detect) Parainfluenza 4 (PCR) (Not Detect) RSV (PCR) (Not Detect) Entero/Rhino (PCR) (Not Detect) 12/13/21 12/14/21 12/14/21 Range/Units 19:35 08:35 08:35 WBC 10.6 D (4.5-11.0) X10^3/uL RBC 4.53 (4.0-5.2) X10^6/uL Hgb 14.0 (12.0-16.0) g/dL Hct 40.3 (36-46) % MCV 88.9 (80-100) fL MCH 30.9 (26-34) PG MCHC 34.8 (30-36) % RDW 13.1 (11.6-14.8) % Plt Count 315 (150-400) X10^3/uL Neut % (Auto) 86.0 H (50-75) % Lymph % (Auto) 8.0 L (25-40) % Stanley % (Auto) 5.5 (3-14) % Eos % (Auto) 0.0 L (2-4) % Baso % (Auto) 0.5 (0-2) % Neut # (Auto) 9100 H (7276-9167) /uL Lymph # (Auto) 900 L (7435-6039) /uL Stanley # (Auto) 600 (0-900) /uL Eos # (Auto) 0 (0-450) /uL Baso # (Auto) 100 (0-100) /uL D-Dimer (<500) ng/ml Sodium 129 L 131 L (137-145) mmol/L Potassium 4.1 3.6 (3.4-5.1) mmol/L Chloride 95 L 94 L (98-107) mmol/L Carbon Dioxide 26 26 (22-32) mmol/L BUN 15 18 H (7-17) mg/dL Creatinine 0.63 0.44 L (0.52-1.04) mg/dL Estimated GFR > 60 > 60 (>60) mL/min BUN/Creatinine Ratio 23.8 H 40.9 H (6-22) Glucose 194 H 156 H (80-110) mg/dL Lactate (0.7-2.1) mmol/L Calcium 9.1 9.3 (8.4-10.2) mg/dL Total Bilirubin 0.6 (0.2-1.3) mg/dL AST 22 (14-36) IU/L ALT 11 (<35) IU/L Alkaline Phosphatase 75 (38-126) U/L Troponin I (0.01-0.034) ng/mL NT-Pro-B Natriuret Pep (<125) pg/mL Total Protein 7.5 (6.3-8.2) g/dL Albumin 4.2 (3.5-5.0) g/dL Globulin 3.3 (1.7-4.1) g/dL Albumin/Globulin Ratio 1.3 (1.0-2.8) Lipase 54 (23-300) U/L Procalcitonin 0.03 (<0.5) ng/mL Urine Color Urine Appearance Urine pH (4.5-8.0) Ur Specific Garvin (1.000-1.035) Urine Protein (Negative) Urine Glucose (UA) (Negative) g/dL Urine Ketones (NEGATIVE) Urine Occult Blood (Negative) Urine Nitrate (Negative) Urine Bilirubin (NEGATIVE) Urine Urobilinogen (0.2) E.U./dL Ur Leukocyte Esterase (NEGATIVE) Urine RBC (0-5/HPF) Urine WBC (0-5/HPF) Ur Squamous Epith Cells (0-5/HPF) Amorphous Sediment Urine Bacteria (None) Ur Culture Indicated? U Opiates 300ng/mL cut (Negative) Ur Oxycodone Screen (Negative) Urine Methadone Screen (Negative) Ur Barbiturates Screen (Negative) U Tricyclic Antidepress (Negative) Ur Phencyclidine Scrn (Negative) Ur Amphetamines Screen (Negative) U Methamphetamines Scrn (Negative) Ur MDMA Scrn (Ecstasy) (Negative) U Benzodiazepines Scrn (Negative) Urine Cocaine Screen (Negative) U Marijuana (THC) Screen (Negative) Ethyl Alcohol ( - 10) mg/dL Chlamy pneumoniae PCR (Not Detect) Adenovirus (PCR) (Not Detect) B. pertussis DNA (PCR) (Not Detecte) B.parapertussis DNA PCR (Not Detecte) Coronavirus OC43 (PCR) (Not Detect) Coronavirus HKU1 (PCR) (Not Detect) Coronavirus 229E (PCR) (Not Detect) SARS-CoV-2 (PCR) (Negative) Coronavirus NL63 (PCR) (Not Detect) Human Metapneumovir PCR (Not Detect) Influenza Type A (PCR) (Not Detect) Influenza Type B (PCR) (Not Detect) M. pneumoniae (PCR) (Not Detect) Parainfluenza 1 (PCR) (Not Detect) Parainfluenza 2 (PCR) (Not Detect) Parainfluenza 3 (PCR) (Not Detect) Parainfluenza 4 (PCR) (Not Detect) RSV (PCR) (Not Detect) Entero/Rhino (PCR) (Not Detect) 12/14/21 12/14/21 12/14/21 Range/Units 08:35 08:35 08:35 WBC (4.5-11.0) X10^3/uL RBC (4.0-5.2) X10^6/uL Hgb (12.0-16.0) g/dL Hct (36-46) % MCV (80-100) fL MCH (26-34) PG MCHC (30-36) % RDW (11.6-14.8) % Plt Count (150-400) X10^3/uL Neut % (Auto) (50-75) % Lymph % (Auto) (25-40) % Stanley % (Auto) (3-14) % Eos % (Auto) (2-4) % Baso % (Auto) (0-2) % Neut # (Auto) (2603-6797) /uL Lymph # (Auto) (9342-4367) /uL Stanley # (Auto) (0-900) /uL Eos # (Auto) (0-450) /uL Baso # (Auto) (0-100) /uL D-Dimer 3790 H (<500) ng/ml Sodium (137-145) mmol/L Potassium (3.4-5.1) mmol/L Chloride (98-107) mmol/L Carbon Dioxide (22-32) mmol/L BUN (7-17) mg/dL Creatinine (0.52-1.04) mg/dL Estimated GFR (>60) mL/min BUN/Creatinine Ratio (6-22) Glucose (80-110) mg/dL Lactate 1.1 (0.7-2.1) mmol/L Calcium (8.4-10.2) mg/dL Total Bilirubin (0.2-1.3) mg/dL AST (14-36) IU/L ALT (<35) IU/L Alkaline Phosphatase (38-126) U/L Troponin I (0.01-0.034) ng/mL NT-Pro-B Natriuret Pep 42 (<125) pg/mL Total Protein (6.3-8.2) g/dL Albumin (3.5-5.0) g/dL Globulin (1.7-4.1) g/dL Albumin/Globulin Ratio (1.0-2.8) Lipase (23-300) U/L Procalcitonin (<0.5) ng/mL Urine Color Urine Appearance Urine pH (4.5-8.0) Ur Specific Garvin (1.000-1.035) Urine Protein (Negative) Urine Glucose (UA) (Negative) g/dL Urine Ketones (NEGATIVE) Urine Occult Blood (Negative) Urine Nitrate (Negative) Urine Bilirubin (NEGATIVE) Urine Urobilinogen (0.2) E.U./dL Ur Leukocyte Esterase (NEGATIVE) Urine RBC (0-5/HPF) Urine WBC (0-5/HPF) Ur Squamous Epith Cells (0-5/HPF) Amorphous Sediment Urine Bacteria (None) Ur Culture Indicated? U Opiates 300ng/mL cut (Negative) Ur Oxycodone Screen (Negative) Urine Methadone Screen (Negative) Ur Barbiturates Screen (Negative) U Tricyclic Antidepress (Negative) Ur Phencyclidine Scrn (Negative) Ur Amphetamines Screen (Negative) U Methamphetamines Scrn (Negative) Ur MDMA Scrn (Ecstasy) (Negative) U Benzodiazepines Scrn (Negative) Urine Cocaine Screen (Negative) U Marijuana (THC) Screen (Negative) Ethyl Alcohol ( - 10) mg/dL Chlamy pneumoniae PCR (Not Detect) Adenovirus (PCR) (Not Detect) B. pertussis DNA (PCR) (Not Detecte) B.parapertussis DNA PCR (Not Detecte) Coronavirus OC43 (PCR) (Not Detect) Coronavirus HKU1 (PCR) (Not Detect) Coronavirus 229E (PCR) (Not Detect) SARS-CoV-2 (PCR) (Negative) Coronavirus NL63 (PCR) (Not Detect) Human Metapneumovir PCR (Not Detect) Influenza Type A (PCR) (Not Detect) Influenza Type B (PCR) (Not Detect) M. pneumoniae (PCR) (Not Detect) Parainfluenza 1 (PCR) (Not Detect) Parainfluenza 2 (PCR) (Not Detect) Parainfluenza 3 (PCR) (Not Detect) Parainfluenza 4 (PCR) (Not Detect) RSV (PCR) (Not Detect) Entero/Rhino (PCR) (Not Detect) 12/14/21 12/14/21 Range/Units 08:35 09:05 WBC (4.5-11.0) X10^3/uL RBC (4.0-5.2) X10^6/uL Hgb (12.0-16.0) g/dL Hct (36-46) % MCV (80-100) fL MCH (26-34) PG MCHC (30-36) % RDW (11.6-14.8) % Plt Count (150-400) X10^3/uL Neut % (Auto) (50-75) % Lymph % (Auto) (25-40) % Stanley % (Auto) (3-14) % Eos % (Auto) (2-4) % Baso % (Auto) (0-2) % Neut # (Auto) (0728-5878) /uL Lymph # (Auto) (3217-9219) /uL Stanley # (Auto) (0-900) /uL Eos # (Auto) (0-450) /uL Baso # (Auto) (0-100) /uL D-Dimer (<500) ng/ml Sodium (137-145) mmol/L Potassium (3.4-5.1) mmol/L Chloride (98-107) mmol/L Carbon Dioxide (22-32) mmol/L BUN (7-17) mg/dL Creatinine (0.52-1.04) mg/dL Estimated GFR (>60) mL/min BUN/Creatinine Ratio (6-22) Glucose (80-110) mg/dL Lactate (0.7-2.1) mmol/L Calcium (8.4-10.2) mg/dL Total Bilirubin (0.2-1.3) mg/dL AST (14-36) IU/L ALT (<35) IU/L Alkaline Phosphatase (38-126) U/L Troponin I < 0.012 (0.01-0.034) ng/mL NT-Pro-B Natriuret Pep (<125) pg/mL Total Protein (6.3-8.2) g/dL Albumin (3.5-5.0) g/dL Globulin (1.7-4.1) g/dL Albumin/Globulin Ratio (1.0-2.8) Lipase (23-300) U/L Procalcitonin (<0.5) ng/mL Urine Color Urine Appearance Urine pH (4.5-8.0) Ur Specific Garvin (1.000-1.035) Urine Protein (Negative) Urine Glucose (UA) (Negative) g/dL Urine Ketones (NEGATIVE) Urine Occult Blood (Negative) Urine Nitrate (Negative) Urine Bilirubin (NEGATIVE) Urine Urobilinogen (0.2) E.U./dL Ur Leukocyte Esterase (NEGATIVE) Urine RBC (0-5/HPF) Urine WBC (0-5/HPF) Ur Squamous Epith Cells (0-5/HPF) Amorphous Sediment Urine Bacteria (None) Ur Culture Indicated? U Opiates 300ng/mL cut (Negative) Ur Oxycodone Screen (Negative) Urine Methadone Screen (Negative) Ur Barbiturates Screen (Negative) U Tricyclic Antidepress (Negative) Ur Phencyclidine Scrn (Negative) Ur Amphetamines Screen (Negative) U Methamphetamines Scrn (Negative) Ur MDMA Scrn (Ecstasy) (Negative) U Benzodiazepines Scrn (Negative) Urine Cocaine Screen (Negative) U Marijuana (THC) Screen (Negative) Ethyl Alcohol ( - 10) mg/dL Chlamy pneumoniae PCR Not detected (Not Detect) Adenovirus (PCR) Not detected (Not Detect) B. pertussis DNA (PCR) Not detected (Not Detecte) B.parapertussis DNA PCR Not detected (Not Detecte) Coronavirus OC43 (PCR) Not detected (Not Detect) Coronavirus HKU1 (PCR) Not detected (Not Detect) Coronavirus 229E (PCR) Not detected (Not Detect) SARS-CoV-2 (PCR) Not detected (Negative) Coronavirus NL63 (PCR) Not detected (Not Detect) Human Metapneumovir PCR Not detected (Not Detect) Influenza Type A (PCR) Not detected (Not Detect) Influenza Type B (PCR) Not detected (Not Detect) M. pneumoniae (PCR) Not detected (Not Detect) Parainfluenza 1 (PCR) Not detected (Not Detect) Parainfluenza 2 (PCR) Not detected (Not Detect) Parainfluenza 3 (PCR) Not detected (Not Detect) Parainfluenza 4 (PCR) Not detected (Not Detect) RSV (PCR) Not detected (Not Detect) Entero/Rhino (PCR) Not detected (Not Detect) Urine Dip Bedside Urine Glucose Negative Bedside Urine Bilirubin - Negative Bedside Urine Ketone + 15 Urine Specific Garvin 1.020 Bedside Urine Occult Blood +/- Bedside Urine pH 6.0 Bedside Urine Protein - Negative Bedside Urine Urobilinogen - Negative Bedside Urine Nitrite - Negative Bedside Urine Leukocytes +/- 15 Esterase ECG Data Interpretation: Normal sinus rhythm rate [address] elevation or depression Luz 12/14/21: Sinus tachycardia rate of 103 IA 140 QRS 72 and QTC of 440. No acute ST changes noted, left axis deviation, patient's EKG appears similar to prior from 2 days ago. MDM Narrative Medical decision making narrative: Dr Pratt overnight 12/13-12/14. Received turned over. He would patient's history and physical and labs. Patient is medically cleared. Has been stable overnight. DCR read dispatch today to evaluate patient to evaluate for disposition. Care turned over to Dr. escobar do continue with disposition. Dr Escobar 12/14/21: Patient signed out to myself. PCR had walk away yesterday as there was no availability but currently seeking [facility] psychiatric placement. Patient's Neurology team had been consulted and they recommend starting Sinemet 3 times daily which has been initiated. Patient seems to be tolerating. Patient did drop her oxygen to 88% while lying flat when sat up comes up to 92% but patient is also little tachycardic. She is afebrile but feels warm. Patient has not had her Sinemet dose today. states she was walking around home before this in her only medication with Seroquel. states she stopped this about a week ago she was at 12.5 mg. Patient feels more, no tachypnea but does appear uncomfortable. Patient going to have labs redrawn, chest x-ray, EKG, respiratory panel and will continue monitoring. Patient may have developed potentially infectious or other cause. Patient is 92% upright in the bed but was placed on 2 L nasal cannula for comfort. Her physical exam does not show any wheezes or crackles. Labs, EKG, blood culture were ordered. Patient was also noted have some twitching of the right side of the face with increasing drooling suspect patient may be having a response with dyskinesias to Sinemet but head CT was also obtained, patient's chest x-ray does not show acute change in EKG appears similar to 2 days prior except for tachycardia. Patient's labs show elevated D-dimer. CT angio shows bilateral pulmonary emboli, likely aspiration pneumonia over infarct and based on patient's exam I suspect aspiration pneumonia as well. Patient does not appear to have heart strain she is tachycardic O2 improves with nasal cannula. No major changes to renal function, no obvious signs of heart strain, EKG shows tachycardia but no acute ST changes spoke with hospitalist who accepts for admission. Patient had possibly issues with swallowing so was given Lovenox, covered with antibiotics. Discharge Plan Departure Patient Disposition: Admitted as Observation Clinical Impression: Acute psychosis, Pulmonary embolism, Pneumonia Admit Date/Time: 12/14/21 11:16 Admit Provider: Fabio Nobles
[2021-12-12 17:38] LABS: Add Manual Diff / Slide Review NO; Basophils Absolute Auto 100 /uL (0-100); Eosinophils Absolute Auto 0 /uL (0-450); Eosinophils Percent Auto 0.2 % (2-4); Hematocrit 40.7 % (36-46); Hemoglobin 14.4 g/dL (12.0-16.0); Lymphocytes Absolute Auto 1400 /uL (1100-4500); Lymphocytes Percent Auto 24.6 % (25-40); Mean Corpuscular HGB Conc 35.3 % (30-36); Mean Corpuscular Hemoglobin 31.2 PG (26-34); Mean Corpuscular Volume 88.2 fL (80-100); Monocytes Absolute Auto 400 /uL (0-900); Monocytes Percent Auto 7.1 % (3-14); Neutrophils Absolute Auto 3900 /uL (1500-7000); Neutrophils Percent Auto 67.1 % (50-75); Platelet Count 326 X10^3/uL (150-400); Red Blood Cell Count 4.61 X10^6/uL (4.0-5.2); White Blood Cell Count 5.8 X10^3/uL (4.5-11.0)
[2021-12-12 17:40] LABS: Alanine Aminotransferase 22 IU/L (<35); Albumin 4.4 g/dL (3.5-5.0); Albumin Globulin Ratio 1.3 (1.0-2.8); Alkaline Phosphatase 87 U/L (38-126); Aspartate Aminotransferase 39 IU/L (14-36); BUN Creatinine Ratio 14.6 (6-22); Bilirubin Total 0.8 mg/dL (0.2-1.3); Blood Urea Nitrogen 7 mg/dL (7-17); Calcium 8.9 mg/dL (8.4-10.2); Carbon Dioxide 28 mmol/L (22-32); Chloride 88 mmol/L (98-107); Estimated Glomerular Filt Rate > 60 mL/min (>60); Globulin 3.4 g/dL (1.7-4.1); Glucose 98 mg/dL (80-110); HEMOLYSIS 29 (0-50); Potassium 3.2 mmol/L (3.4-5.1); Sodium 125 mmol/L (137-145); Total Protein 7.8 g/dL (6.3-8.2)
[2021-12-12 17:41] LABS: Ethanol (ETOH) < 10 mg/dL
--- NOTE | 2021-12-12 18:14 | CM.SWNOTE ---
HEART COORDINATOR Assessment HEART COORDINATOR - Fire Marshal Assessment Time Spent with Patient Start date 12/12/21 Visit Start Time 15:50 End date 12/12/21 Visit End Time 16:10 Total time Care Management spent on 35 Minutes patient visit-in minutes Mental Health Screening Include Onset, Duration, Intensity Presenting Problem Patient presents to ED via POV with . endorses concerns for patient presenting as catatonic the in the last few days and concern for patient's paranoia , hallucinations and delusions. Patient presents as nonresponsive to most questions and presents with piercing eye contact at times, and obsessive about scrapes or bruises on her body. Precipitating Event(s) Patient's endorses concern for stroke like behavior since yesterday and concern for patient's ability to perform ADLs. states he has concern that he could not leave her side. 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 reports that Neurologist Dr. Stoll was unsure about dx and has been reducing patient's Seroquel medication from 25 mg to 12.5mg to no rx at all. states that he gave patient Seroquel last night due to concern for her presentation. Patient Strengths Patient has supportive and patient has upcoming Neurology appt on 02/05/22 and appt with [facility]. Current Behavioral Health Provider(s) None reported Include Facility, Provider, Ph. # Psych. Hx Mental Health and Chemical [facility] diagnosed patient with Dependency Lewey Body Dementia. Family Hx of Behavioral Abuse None reported Psychiatric Hospitalizations (date(s)/ Patient was in Medical Acute location) care unit with Psychiatry assessments from 05/30/21 to 06/11/21 Psychosocial information & Support Patient is 71 y/o female who Systems resides with in [place], [place]. and family members are patient supports. 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 Affect (Congruent with Mood?) euthymic, flat, stable, nonresponsive Thought Content - Specify/Describe Patient responds Yes to Obsessions, Delusions, Hallucinations visual and auditory hallucinations but is not able to elaborate. Patient allows to describe what he has witnessed. states that patient presented with stroke like behavior yesterday and presented as confused and disoriented. endorses that yesterday patient sat on the couch stating she was waiting for people to come take her away. states that several nights ago patient wanted to leave the door open so someone could perform a welfare check on . states that patient was independent with ADLs until yesterday and he is concerned with her ability to care for herself due to this increase in delusions and paranoia. HEART COORDINATOR observes that patient presents with picking behaviors and picks at bruises or scabs. Thought Processes (Rijxapw-Iuyetzty-Rtsr Nonresponsive to most Qblghtmh-Cxxvxtty-Ldhycdleux- questions. vaguely coherent Rkieqcvgroojty-Ninqmer-Egpixfhcioki- responses to yes/no questions. Thought Blocking) Speech (Qkzjhz-Clav-Oeevhng-Rapid-Soft- slow, soft Loud-Pressured) Motor (Odaobk-Mwipxshze-Ucjq-Other) slow Insight (Vqfy-Kioa-Cqdd/Limited) poor/limited Judgement (Jkix-Wrdj-Oyup/Limited) poor/limited Impulse Control (Adequate-Impaired) adequate Memory (Trpawsdgn-Ouumtd-Jicfjp, impaired, not formally Impaired-Intact) assessed. Patient presents with confusion. Concentration (Intact-Impaired) impaired, patient presents as distracted or preoccupied and not able to respond to questions. Patient gives consent for to answer questions and patient stares at who ever is talking. Attention (Intact-Impaired) impaired, patient presents as distracted or preoccupied and not able to respond to questions. Patient gives consent for to answer questions and patient stares at who ever is talking. Behavior (Appropriate-Inappropriate) Appropriate, patient is calm and cooperative. Risk Assessment Suicidal Ideation (Plan) No Homicidal Ideation (Plan) No Comment Patient is nonresponsive to questions. Patient denies HI and SI in triage. endorses concern that he is unsure what patient is capable of in regards to harming herself or others and is concerned for her safety. Intervention Intervention HEART COORDINATOR enters room to meet with patient, present in room is patient's . Patient nods in agreement for to be present. 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 HEART COORDINATOR recalls patient and patient presents with flat affect, catatonic and nonresponsive with eye contact and gaze towards who ever is speaking. HEART COORDINATOR observes significant decline in patient 's baseline in the last year. Per [facility] records and patient's , patient presented with similar concerns in May 2021 and patient was diagnosed with Lewey Body Dementia and was prescribed Seroquel. Per , patient 's Neurologist weaned patient off of Seroquel recently. Patient's endorses he noticed a significant change in patient's behavior in the last few days. Patient's endorses concern for patient's paranoia , delusions, hallucinations and confusion. endorses that patient was able to complete ADLs until yesterday. Patient has upcoming Neurology and [facility] appts in February but reports concern for patient's current and presenting altered mental status and would like patient to be transferred for further evaluation. It is the opinion of this HEART COORDINATOR that patient presents as gravely disabled and is in need of further DCR evaluation to determine if patient is appropriate for [facility] placement. Patient presented to [facility] with similar presentation in May 2021. Per [facility]'s records, patient was deemed non-decisional in regards to decision making and mental status by Psychiatrist Dr. Nieto. It is the opinion of this HEART COORDINATOR that patient would benefit from further medication management and psychiatric evaluation due to concern for patient's grave disability. HEART COORDINATOR reviews the above with ED provider Dr. Fulton who indicates agreement and understanding. Plan RA Plan HEART COORDINATOR to dispatch DCR upon medical clearance for further evaluation to determine if [facility] placement is appropriate. Erlinda Bravo, EQUALIZING SAW OPERATOR
[2021-12-12 18:18] LABS: Appearance Urine UA CLEAR; Bilirubin Urine UA NEGATIVE (NEGATIVE); Color Urine UA YELLOW; Glucose Urine UA TRACE g/dL (Negative); Ketones Urine UA 2+ (NEGATIVE); Leukocyte Esterase Urine UA 1+ (NEGATIVE); Nitrite Urine UA NEGATIVE (Negative); Occult Blood Urine UA 1+ (Negative); Protein Urine UA NEGATIVE (Negative); Urobilinogen Urine UA 0.2 E.U./dL (0.2)
[2021-12-12 18:28] LABS: UR Morphine/Opiate cutoff 300 Negative (Negative); Ur Creatinine Normal (Normal); Ur Specific Gravity Normal (Normal); Urine Amphetamines Negative (Negative); Urine Barbiturates Negative (Negative); Urine Benzodiazepines Negative (Negative); Urine Cocaine Negative (Negative); Urine MDMA Negative (Negative); Urine Methadone Negative (Negative); Urine Methamphetamines Negative (Negative); Urine Oxycodone Negative (Negative); Urine Phencyclidine Negative (Negative); Urine Tetrahydrocannabinol Negative (Negative); Urine Tricyclic Antidepressant Negative (Negative); Urine pH Normal (Normal)
[2021-12-12 18:30] LABS: Amorphous Sediment Urine 2+; Bacteria Urine Occasional (0-1); Culture Indicated Urine Cult Not Indicated; RBC Urine 1-5/HPF (0-5/HPF); Squamous Epithelial Cell Urine 5-10 /HPF (0-5/HPF); WBC Urine 5-10/HPF (0-5/HPF); pH Urine UA 5.5 (4.5-8.0)
[2021-12-12 18:30] LABS: COVID19 -Nasal RAPID Negative (Negative)
--- NOTE | 2021-12-12 18:59 | DI.CT.S_ITS ---
PROCEDURE: CT HEAD/BRAIN WO CON INDICATIONS: altered TECHNIQUE: Noncontrast 4.5 mm thick angled axial sections acquired from the foramen magnum to the vertex, with coronal and sagittal reformats. For radiation dose reduction, the following was used: automated exposure control, adjustment of mA and/or kV according to patient size. COMPARISON: [facility], MR, MR BRAIN WITH/WITHOUT CONTRAST, 05/15/2021, 13:20. FINDINGS: Image quality: Excellent. CSF spaces: Basal cisterns are patent. No extra-axial fluid collections. The ventricles are symmetric in size and shape. Brain: No intracranial bleeds or masses. There is mild cerebral volume loss for age, with resultant ventricular and sulcal prominence. There are mild periventricular and deep white matter chronic small vessel ischemic changes. There is intracranial internal carotid artery atherosclerosis. Skull and face: Calvarium and visualized facial bones appear intact, without suspicious lesions. Sinuses: Visualized sinuses and mastoids are clear. IMPRESSION: 1. No acute intracranial abnormalities. 2. Cerebral volume loss and chronic microvascular ischemic changes. Dictated by: Katy Durán M.D. on 12/12/2021 at 19:36 Approved by: Katy Durán M.D. on 12/12/2021 at 19:38
[2021-12-12] MEDS: POTASSIUM CHLORIDE 20 MEQ/15 ML UDC 40 MEQ PO (19:26)
--- NOTE | 2021-12-12 19:58 | CM.SWNOTE ---
HOUSE WRECKER Note HOUSE WRECKER dispatches DCR for further evaluation, Florentino SAMAYOA is assigned. HOUSE WRECKER enters room to meet with patient as she sits upright looking out of her doorway. Patient presents as more talkative and states that she is concerned that her grandchildren are here and she is going to kill them and reports concern that she has been killing them. Patient's reassures patient that they are in [place]. Patient is reassured that she will be safe in ED and everyone around her will be safe. When asked about how patient has or would harm her grandchildren, she states that she does not know. Patient endorses that she does not know what she is capable of or what she could do to them. Patient later states I think I eat them and mentions blood. Patient presents with visible concern on her face but responds well to continued reassurance of her safety and her grandchildren's safety. Plan: Awaiting DCR evaluation YAHIR Jones
--- NOTE | 2021-12-13 | PC.NURSE ---
pt lying on stretcher, confused but cooperative, waiting placement
[2021-12-13 08:02] VITALS: BP 127/67; PULSE 89; RESP 16; TEMP 36.7; O2SAT 98
--- NOTE | 2021-12-13 08:02 | PC.NURSE ---
pt in chair, awake, alert, eyes following, nonverbal, not following or responding to commands or questions. Assisted back to bed with CHRIS schmidt for safety. side rails x2, call light and side table within reach. educated on POC. cooperative with VS assessment. conitnues to be nonverbal/not responding for questions.
[2021-12-13] MEDS: CARBIDOPA-LEVODOPA 25/100 TABLET 1 EACH PO ×2 (09:32→21:58)
--- NOTE | 2021-12-13 09:32 | PC.NURSE ---
pt now awake, eating breakfast on own, oriented to self and place. at bedside. meds given without issue, Dr. Fulton at bedside to update pt and family on POC.
--- NOTE | 2021-12-13 15:23 | CM.SWNOTE ---
Addendum entered by Erlinda Bravo 12/13/21 19:56: [employer] Note Per daughter Tracy who read Neurologist Dr. Stoll's assessment of patient. Patient scored high score cognitive testing so Lewey Body dementia was ruled out and Dr. Stoll weened patient off of Seroquel. Tracy reports concern that patient's change in behavior started after patient stopped taking Seroquel. Per Dr. Fulton's report after speaking with Dr. Stoll today it appears that Dr. Stoll suggests that patient may be in late stages of Lewey Body Dementia but does not recommend Seroquel. Erlinda Bravo [facility] Addendum entered by Erlinda Bravo 12/13/21 19:26: [employer] Note [employer] calls [facility] once more, it was reported that the fax was not received and intake gave [employer] current fax number: [phone]. [employer] faxes clinicals for review. Intake endorses they may be able to review patient for Thursday. Patient continues to present with confusion and disorientation. DCR to be dispatched early tomorrow morning after 24 hours have passed. [employer] calls patient's daughter Tracy and updates her (ph. # [phone]) . 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 It is the opinion of this [employer] that patient is not safe to d/c to home at this time due to patient's grave disability and altered mental status. It is the opinion of this [employer] that patient is in need of further psychiatry evaluation and medication management. Plan: Continue to seek placement for patient, continue to f/u with DCR assessments, seek Psychiatry consultation for Thursday and follow up with family. YHAIR Jones Original Note: [employer] Note [employer] reviews DCR report, per DCR Florentino -patient met criteria for detainment due to grave disability last evening but patient was not detained due to no beds available. Due to [facility]INA walkaway, [employer] conducts [facility] bed search prior to next DCR dispatch at 24 hour du. Family endorses concern for their ability to keep patient safe at this time. Per ED provider Dr. Fulton, Behavioral Health & Psychiatry were contacted for consult but it was reported that no psychiatrist was available for consult. Dr. Fulton consulted with patient's neurologist Dr. Stoll regarding medication management and tries new medication for patient. [employer] enters room per patient's 's request. Patient presents laying down, apologizing for being tired and stating that she hasn't slept. Patient prsents as more communicative than last evening, but continues to be disoriented and presenting with delusions. Patient's daughter Tracy (ph. # [phone]) is called by patient's and [employer] is present for phone call. Patient's and daughter endorse concern for patient's safety upon d/c and endorse agreement with seeking patient transfer to psychiatric unit. Tracy requests updates from [employer]. [employer] endorses that [employer] will call hospital facilities for patient review. [employer] speaks with Janene with [facility] who endorses that a DCR will be dispatched at the 24 hour du this evening and [employer] is to call Dispatch if there are any changes regarding patient or if placement is found. [employer] calls [facility], it is reported that they have beds and can review patient. [facility] calls back and states that they do not accept patients with Dementia. [employer] calls [facility], it is reported that they have beds and can review patient. [facility] intake calls and states that they cannot accept patient due to the acuity on the unit at the current time. [employer] calls [facility], and it is reported that they have beds but cannot accept patients with Dementia dx. [employer] calls [facility] and leaves VM requesting return call. [employer] calls [facility] and it is reported they do not have beds today. [employer] calls [facility] intake several times and leaves VM requesting return call. [employer] also faxes referral for review as this facility has inpatient unit that services patients with Dementia. [employer] calls [facility] intake, it is reported that they do not have beds. LAB[employer] calls [facility] and leaves VM requesting return call. LAB[employer] calls [facility] and it is reported that they do not accept CHRISTINA patients or Geropsych patients. LAB[employer]ER [employer] calls [facility] intake, it is reported that they do not accept geropsych patients at facility. [employer] calls [facility] and leaves message and faxes clinicals for review. wood heel flap rubber calls [facility] and leaves VM requesting return call. [employer] consults with LABORER FRYER FARMVin Gutiérrez who recommends further calls with [facility] and [facility] and researches other facility options. Marla calls and states that she called [facility] (Ph. # [phone]), [employer] calls this number as well and leaves requesting return call. [employer] searches [facility] and finds a Dementia unit at hospital, [employer] calls hospital and requests intake. [facility] intake (unit 4A) states that there unit is full and they cannot accept new patients at this time. It is reported that the Dementia unit is (3A) [employer] calls to speak with intake for unit 3A, an RN answers on the floor and reports that there are typically no accepted transfers from other hospitals and just patients accepted from [facility] ED. RN transfers [employer] to care management dept, [employer] leaves requesting return call. Plan: [employer] to continue to f/u with hospital units that have yet to respond specifically and [facility], f/u with Psychiatry on Thursday if patient is still in ED. DCR to re-evaluate patient this evening. Erlinda Bravo, EDITING INTERN
[2021-12-13 16:05] VITALS: BP 104/71; PULSE 104; RESP 16; O2SAT 95
[2021-12-13 19:56] VITALS: PULSE 107; O2SAT 96
[2021-12-13 19:58] VITALS: BP 104/71; PULSE 105; O2SAT 95
[2021-12-13 20:00] LABS: BUN Creatinine Ratio 23.8 (6-22); Blood Urea Nitrogen 15 mg/dL (7-17); Calcium 9.1 mg/dL (8.4-10.2); Carbon Dioxide 26 mmol/L (22-32); Chloride 95 mmol/L (98-107); Estimated Glomerular Filt Rate > 60 mL/min (>60); Glucose 194 mg/dL (80-110); HEMOLYSIS < 15 (0-50); Potassium 4.1 mmol/L (3.4-5.1); Sodium 129 mmol/L (137-145)
[2021-12-14] VITALS (34 sets, daily range): BP systolic 96–145; BP diastolic 55–105; PULSE 71–130; RESP 14–33; TEMP 36.7–37.6; O2SAT 81–100; BMI 16.7
--- NOTE | 2021-12-14 08:27 | DI.RAD.S_ITS ---
PROCEDURE: XR CHEST 1V INDICATIONS: low oxygen TECHNIQUE: One view of the chest was acquired. COMPARISON: None. FINDINGS: Surgical changes and devices: None. Lungs and pleura: Patient is rotated towards the right. Lungs are clear. No pleural effusions or pneumothorax. Mediastinum: Mediastinal contours appear normal. Heart size is normal. Bones and chest wall: No suspicious bony lesions. Overlying soft tissues appear unremarkable. IMPRESSION: No acute cardiopulmonary abnormality. Dictated by: Kevin Baker M.D. on 12/14/2021 at 7:47 Approved by: Kevin Baker M.D. on 12/14/2021 at 7:49
[2021-12-14 08:50] LABS: Add Manual Diff / Slide Review NO; Basophils Absolute Auto 100 /uL (0-100); Basophils Percent Auto 0.5 % (0-2); Eosinophils Absolute Auto 0 /uL (0-450); Hematocrit 40.3 % (36-46); Lymphocytes Absolute Auto 900 /uL (1100-4500); Mean Corpuscular HGB Conc 34.8 % (30-36); Mean Corpuscular Hemoglobin 30.9 PG (26-34); Mean Corpuscular Volume 88.9 fL (80-100); Monocytes Absolute Auto 600 /uL (0-900); Monocytes Percent Auto 5.5 % (3-14); Neutrophils Absolute Auto 9100 /uL (1500-7000); Platelet Count 315 X10^3/uL (150-400); Red Blood Cell Count 4.53 X10^6/uL (4.0-5.2); Red Cell Distribution Width 13.1 % (11.6-14.8); White Blood Cell Count 10.6 X10^3/uL (4.5-11.0)
--- NOTE | 2021-12-14 08:57 | DI.CT.S_ITS ---
PROCEDURE: CT HEAD/BRAIN WO CON INDICATIONS: twitching face TECHNIQUE: Noncontrast 4.5 mm thick angled axial sections acquired from the foramen magnum to the vertex, with coronal and sagittal reformats. For radiation dose reduction, the following was used: automated exposure control, adjustment of mA and/or kV according to patient size. COMPARISON: [facility], CT, CT HEAD/BRAIN WO CON, 12/12/2021, 19:21. FINDINGS: Image quality: Excellent. CSF spaces: Basal cisterns are patent. No extra-axial fluid collections. The ventricles are symmetric in size and shape. Brain: No acute intracranial hemorrhage or mass effect. There is cerebral volume loss for age, with resultant ventricular and sulcal prominence. There are periventricular and deep white matter chronic small vessel ischemic changes. There is intracranial internal carotid artery atherosclerosis. Skull and face: Calvarium and visualized facial bones appear intact, without suspicious lesions. Sinuses: Visualized sinuses and mastoids are clear. IMPRESSION: 1. No acute intracranial abnormality. 2. Mild chronic microvascular ischemic changes and age related cerebral volume loss. Dictated by: Kevin Baker M.D. on 12/14/2021 at 8:28 Approved by: Kevin Baker M.D. on 12/14/2021 at 8:31
[2021-12-14 09:04] LABS: Alanine Aminotransferase 11 IU/L (<35); Albumin 4.2 g/dL (3.5-5.0); Albumin Globulin Ratio 1.3 (1.0-2.8); Alkaline Phosphatase 75 U/L (38-126); Aspartate Aminotransferase 22 IU/L (14-36); BUN Creatinine Ratio 40.9 (6-22); Bilirubin Total 0.6 mg/dL (0.2-1.3); Blood Urea Nitrogen 18 mg/dL (7-17); Calcium 9.3 mg/dL (8.4-10.2); Carbon Dioxide 26 mmol/L (22-32); Chloride 94 mmol/L (98-107); Estimated Glomerular Filt Rate > 60 mL/min (>60); Globulin 3.3 g/dL (1.7-4.1); Glucose 156 mg/dL (80-110); HEMOLYSIS < 15 (0-50); Lipase 54 U/L (23-300); Potassium 3.6 mmol/L (3.4-5.1); Sodium 131 mmol/L (137-145); Total Protein 7.5 g/dL (6.3-8.2)
[2021-12-14 09:05] LABS: Lactate (Lactic Acid) 1.1 mmol/L (0.7-2.1)
[2021-12-14 09:14] LABS: NT-proBNP (BNP-Adult 18+) 42 pg/mL (<125)
[2021-12-14 09:21] LABS: Procalcitonin 0.03 ng/mL (<0.5)
[2021-12-14 09:29] LABS: D Dimer 3790 ng/ml (<500)
--- NOTE | 2021-12-14 09:32 | PC.NURSE ---
Per report: [facility] not accepting dementia pts Continue to dispatch DCR every 24 hours, DCR will be automatically dispatched at 24 hour du. Dorothyjosefa Farris willing to review patient on Thursday (fax: [phone]) (ph. # [phone])[Only facility that accepts patients with dementia] *Call [facility] 12/14 in AM regarding bed status *Call Psychiatry ([phone]) Thursday AM if patient is still in ED [facility] declined due to dementia 1340 [facility] declined 1340 due to acuity on unit cascade declined due to age and dementia Call DCR back in 24 hrs(12/14 @0800) if no bed Spouse Micky, call with updates [phone] and call daughter Tracy (Ph. # [phone]) Pt now NOT medically cleared r/t new oxygen requirement, new NPO status r/t inability to swallow effectively, possible aspiration.
[2021-12-14] MEDS: SODIUM CHLORIDE 0.9% 1,000 ML 125 ML IV (09:34)
[2021-12-14] MEDS: PIPERACILLIN/TAZO 4.5 GM in SODIUM CHLORIDE 0.9% 100 ML IV (09:35)
--- NOTE | 2021-12-14 10:05 | DI.CT.S_ITS ---
PROCEDURE: CT ANGIO CHEST PE PROTOCOL INDICATIONS: tachycardia, hypoxia, elevated dimer, low Na TECHNIQUE: After the administration of intravenous contrast, 2 mm thick sections acquired from the pulmonary apices to the posterior costophrenic angles. 3-dimensional maximum intensity projection (MIP) coronal and sagittal reformats were then acquired through the thorax. For radiation dose reduction, the following was used: automated exposure control, adjustment of mA and/or kV according to patient size. COMPARISON: [facility], CT, CT ABDOMEN PELVIS WITH CONTRAST, 03/01/2021, 16:29. [facility], CR, XR CHEST 1V, 12/14/2021, 8:25. FINDINGS: Image quality: Excellent. Pulmonary arteries: A filling defect is seen within a subsegmental artery at the right posterior in segment of the right lower lobe. Additional subsegmental small pulmonary embolus is seen a day branching point within the medial segment of the right middle lobe. There is opacification of a distal subsegmental artery in the anterior right upper lobe questionable subsegmental pulmonary embolus in the lateral segment of the left lower lobe. The main pulmonary artery is normal in size. Right ventricle is not enlarged. There is no reflux of contrast material into the hepatic veins. Lungs and pleura: Patchy opacities are seen in the medial right lung base that may represent infarct, pneumonia, or aspiration. Some of the opacities have a tree-in-bud configuration. No pleural effusions or pneumothorax. Central and peripheral airways are patent. Mediastinum: Heart size is normal, without pericardial effusion. No mediastinal or hilar adenopathy. Thoracic aorta is normal in caliber and enhancement. Esophagus is normal in caliber, without hiatal hernia. Bones and chest wall: Moderate compression deformities are seen at the T12 and L1 vertebral bodies and possibly the L2 vertebral body. The L1 fracture does not appear significantly changed when compared to the CT from 03/01/2021. T12 and L2 fractures are new. There is generalized osteopenia. No suspicious bony lesions. Thyroid is unremarkable. No axillary or supraclavicular adenopathy. Abdomen: Visualized upper abdominal solid organs appear normal in the early arterial phase of enhancement. IMPRESSION: 1. A few small peripheral subsegmental pulmonary emboli are seen in the lungs bilaterally. No signs of right heart strain. 2. Right lower lobe tree-in-bud opacities are favored to represent aspiration or pneumonia rather than pulmonary infarct. 3. Moderate compression fractures at T12 through L2. T12 and L2 fractures are of uncertain age, but appear new when compared to the CT from 03/01/2021. L1 fracture appears unchanged. Findings were discussed with the referring physician, Dr. Corley, by telephone on 12/14/2021 at 9:56 AM ([place] time). Dictated by: Kevin Baker M.D. on 12/14/2021 at 9:43 Approved by: Kevin Baker M.D. on 12/14/2021 at 9:58
[2021-12-14 10:14] LABS: Adenovirus Not Detected (Not Detect); B. parapertussis Not Detected (Not Detecte); Bordetella pertussis Not Detected (Not Detecte); Chlamydophila pneumoniae Not Detected (Not Detect); Coronavirus 229E Not Detected (Not Detect); Coronavirus HKU1 Not Detected (Not Detect); Coronavirus NL 63 Not Detected (Not Detect); Coronavirus OC43 Not Detected (Not Detect); Human Metapneumovirus Not Detected (Not Detect); Human Rhinovirus/Enterovirus Not Detected (Not Detect); Influenza A Not Detected (Not Detect); Influenza B Not Detected (Not Detect); Mycoplasma pneumoniae Not Detected (Not Detect); Parainfluenza Virus 1 Not Detected (Not Detect); Parainfluenza Virus 2 Not Detected (Not Detect); Parainfluenza Virus 3 Not Detected (Not Detect); Parainfluenza Virus 4 Not Detected (Not Detect); Respiratory Syncytial Virus Not Detected (Not Detect); SARS- CoV-2 Not Detected (Not Detecte)
--- NOTE | 2021-12-14 11:30 | P.HP_ITS ---
History of Present Illness History of Present Illness Date Patient Seen: 12/14/21 Time Patient Seen: 16:00 Chief complaint: Pulmonary Emboli / Asp pneumonia Narrative: Kiera Levin is a 71yo F with PMH of acute psychosis 2/2 possible Lewy body dementia vs schizophrenia, osteoporosis and scoliosis who presented to the ED 2 days ago due to 3 days of increasingly odd behavior and confusion with intermittent catatonia. She was boarding in the ED for 2 days while transfer was attempted to inpatient geriatric psych unit. Unfortunately on day 2 she developed dyspnea and tachycardia. Was put on 1L NC. CTA chest showed small bilateral pulmonary embolisms and focal infiltrate concerning for aspiration PNA. She was admitted for abx and blood thinners. Patient is currently very somnolent and unable to provide history so and sister are giving the history. Patient is already known to me as she first was admitted to [facility] for psychosis symptoms, paranoia and agitation. Was given seroquel and followed up with Dr. Stoll neurology who felt her symptoms most likely represented Lewy body dementia. However a separate neuropsych assessment done at suggested her symptoms may be related to a recent colonoscopy she had where she received sedatives which could have led to the psychosis. She continued taking seroquel but it was lowered to 12.5mg dose by Dr. Stoll. states she continued to have delusions and paranoia, thinking she was being watched or followed. Then about 10 days ago she stopped the seroquel and had an episode where she thought her daughter was outside in the car and kept going to the front yard to find her. However her daughter was not there but patient was convinced that she was. then brought her to the ED for this worsened behavior. Patient History Medical History Body posture problem Body posture problem Cervical somatic dysfunction Chicken pox Chronic back pain (~2018) Compression fracture of L1 vertebra with routine healing Cranial somatic dysfunction Facet arthropathy Knee pain (~2008) Kyphosis (acquired) (postural) Musculoskeletal problem (~2018) Osteoporosis Pelvic somatic dysfunction Rib pain on left side Scoliosis Segmental and somatic dysfunction of abdomen and other regions Segmental and somatic dysfunction of lower extremity Segmental and somatic dysfunction of lumbar region Segmental and somatic dysfunction of rib cage Segmental and somatic dysfunction of sacral region Segmental and somatic dysfunction of thoracic region Segmental and somatic dysfunction of upper extremity Skin rash (~2018) Vision disorder Surgical History History of cataract removal with insertion of prosthetic lens (~2015) Family & Social History Family History Father Cancer Mother History of heart disease Safety & Behavioral: Feels Safe in Current Yes Environment Been Physically Hurt or No Threatened By a Person Suicidal Ideation Description None Suicide Plan Description No Plan Tobacco & Substance use: Smoking Status Never smoker alcohol intake frequency holiday/special occasion Substance Use Type does not use Meds Home Medications and Allergies Home Medications Medication Instructions Recorded Confirmed Type calcitonin (salmon) 200 1 spray intranasal (ALT) DAILY 01/30/20 01/30/20 Rx unit/actuation nasal spray sacral fx 2 months #3.7 mL quetiapine 25 mg tablet 12.5 mg PO BEDTIME 12/14/21 12/14/21 History Allergies Allergy/AdvReac Type Severity Reaction Status Date / Time No Known Drug Allergies Allergy Verified 12/12/21 11:52 Review of Systems Review of Systems Narrative: All other systems reviewed with the patient and are negative unless otherwise stated. Exam Vital Signs (past 8 hours): - 12/14/21 05:57 12/14/21 05:58 12/14/21 05:58 Temperature 99.6 F Pulse Rate 85 87 Respiratory Rate Blood Pressure 145/71 H Pulse Oximetry 97 98 Oxygen Delivery Method Oxygen Flow Rate 12/14/21 06:00 12/14/21 06:15 12/14/21 06:30 Temperature Pulse Rate 78 97 H 81 Respiratory Rate Blood Pressure Pulse Oximetry 97 100 100 Oxygen Delivery Method Oxygen Flow Rate 12/14/21 06:45 12/14/21 07:00 12/14/21 07:15 Temperature Pulse Rate 80 86 91 H Respiratory Rate Blood Pressure Pulse Oximetry 100 98 98 Oxygen Delivery Method Oxygen Flow Rate 12/14/21 07:30 12/14/21 07:45 12/14/21 08:00 Temperature Pulse Rate 87 85 91 H Respiratory Rate Blood Pressure Pulse Oximetry 98 97 96 Oxygen Delivery Method Oxygen Flow Rate 12/14/21 08:15 12/14/21 08:25 12/14/21 08:25 Temperature Pulse Rate 87 71 Respiratory Rate Blood Pressure 129/73 Pulse Oximetry 96 93 Oxygen Delivery Method Oxygen Flow Rate 12/14/21 08:30 12/14/21 08:30 12/14/21 08:45 Temperature Pulse Rate 107 H Respiratory Rate Blood Pressure 130/65 109/63 Pulse Oximetry 93 Oxygen Delivery Method Oxygen Flow Rate 12/14/21 08:45 12/14/21 08:59 12/14/21 09:00 Temperature Pulse Rate 102 H 101 H Respiratory Rate 26 H Blood Pressure 107/60 Pulse Oximetry 95 97 Oxygen Delivery Method Nasal Cannula Nasal Cannula Oxygen Flow Rate 1 1 12/14/21 08:35 12/14/21 09:00 12/14/21 09:16 Temperature 98.5 F Pulse Rate 130 H 103 H Respiratory Rate 28 H 25 H Blood Pressure 110/63 Pulse Oximetry 81 L 97 Oxygen Delivery Method Room Air Oxygen Flow Rate 12/14/21 09:16 12/14/21 09:30 12/14/21 09:30 Temperature Pulse Rate 106 H 98 H Respiratory Rate 31 H 27 H Blood Pressure 104/60 Pulse Oximetry 93 96 Oxygen Delivery Method Nasal Cannula Oxygen Flow Rate 1 12/14/21 09:45 12/14/21 09:45 12/14/21 10:00 Temperature Pulse Rate 100 H Respiratory Rate 22 Blood Pressure 113/66 109/61 Pulse Oximetry 100 Oxygen Delivery Method Oxygen Flow Rate 12/14/21 10:00 12/14/21 10:28 12/14/21 10:29 Temperature Pulse Rate 94 H 102 H Respiratory Rate 25 H 28 H Blood Pressure 96/55 L Pulse Oximetry 100 99 Oxygen Delivery Method Nasal Cannula Oxygen Flow Rate 1 12/14/21 10:29 12/14/21 10:30 12/14/21 10:30 Temperature Pulse Rate 98 H 98 H Respiratory Rate 17 18 Blood Pressure 99/56 L Pulse Oximetry 98 100 Oxygen Delivery Method Oxygen Flow Rate 12/14/21 10:45 12/14/21 10:45 12/14/21 11:00 Temperature Pulse Rate 89 Respiratory Rate 22 Blood Pressure 100/57 L 120/57 L Pulse Oximetry 100 Oxygen Delivery Method Oxygen Flow Rate 12/14/21 11:00 Temperature Pulse Rate 110 H Respiratory Rate 33 H Blood Pressure Pulse Oximetry 100 Oxygen Delivery Method Oxygen Flow Rate Oxygen Delivery Method Nasal Cannula Oxygen Flow Rate 1 Narrative Exam Narrative: GEN: sleeping and barely arouseable then drifts back to sleep, appears thin and frail HEENT: moist mucous membranes, PERRL NECK: trachea midline, no JVD CV: regular rate and rhythm, no murmurs PULM: clear bilaterally ABD: soft, nontender, nondistended, no organomegaly EXT: warm and well perfused with no edema NEURO: awake, alert, oriented, no focal deficits, no rigidity, no seizure-like activity Objective Labs Result Diagrams: 12/14/21 08:35 12/14/21 08:35 Labs: Laboratory Results - last 24 hr 12/13/21 12/14/21 12/14/21 19:35 08:35 08:35 WBC 10.6 D RBC 4.53 Hgb 14.0 Hct 40.3 MCV 88.9 MCH 30.9 MCHC 34.8 RDW 13.1 Plt Count 315 Neut % (Auto) 86.0 H Lymph % (Auto) 8.0 L Faulkner % (Auto) 5.5 Eos % (Auto) 0.0 L Baso % (Auto) 0.5 Neut # (Auto) 9100 H Lymph # (Auto) 900 L Faulkner # (Auto) 600 Eos # (Auto) 0 Baso # (Auto) 100 D-Dimer Sodium 129 L 131 L Potassium 4.1 3.6 Chloride 95 L 94 L Carbon Dioxide 26 26 BUN 15 18 H Creatinine 0.63 0.44 L Estimated GFR > 60 > 60 BUN/Creatinine Ratio 23.8 H 40.9 H Glucose 194 H 156 H Lactate Calcium 9.1 9.3 Total Bilirubin 0.6 AST 22 ALT 11 Alkaline Phosphatase 75 NT-Pro-B Natriuret Pep Total Protein 7.5 Albumin 4.2 Globulin 3.3 Albumin/Globulin Ratio 1.3 Lipase 54 Procalcitonin 0.03 Chlamy pneumoniae PCR Adenovirus (PCR) B. pertussis DNA (PCR) B.parapertussis DNA PCR Coronavirus OC43 (PCR) Coronavirus HKU1 (PCR) Coronavirus 229E (PCR) SARS-CoV-2 (PCR) Coronavirus NL63 (PCR) Human Metapneumovir PCR Influenza Type A (PCR) Influenza Type B (PCR) M. pneumoniae (PCR) Parainfluenza 1 (PCR) Parainfluenza 2 (PCR) Parainfluenza 3 (PCR) Parainfluenza 4 (PCR) RSV (PCR) Entero/Rhino (PCR) 12/14/21 12/14/2122 08:35 08:35 08:35 WBC RBC Hgb Hct MCV MCH MCHC RDW Plt Count Neut % (Auto) Lymph % (Auto) Faulkner % (Auto) Eos % (Auto) Baso % (Auto) Neut # (Auto) Lymph # (Auto) Faulkner # (Auto) Eos # (Auto) Baso # (Auto) D-Dimer 3790 H Sodium Potassium Chloride Carbon Dioxide BUN Creatinine Estimated GFR BUN/Creatinine Ratio Glucose Lactate 1.1 Calcium Total Bilirubin AST ALT Alkaline Phosphatase NT-Pro-B Natriuret Pep 42 Total Protein Albumin Globulin Albumin/Globulin Ratio Lipase Procalcitonin Chlamy pneumoniae PCR Adenovirus (PCR) B. pertussis DNA (PCR) B.parapertussis DNA PCR Coronavirus OC43 (PCR) Coronavirus HKU1 (PCR) Coronavirus 229E (PCR) SARS-CoV-2 (PCR) Coronavirus NL63 (PCR) Human Metapneumovir PCR Influenza Type A (PCR) Influenza Type B (PCR) M. pneumoniae (PCR) Parainfluenza 1 (PCR) Parainfluenza 2 (PCR) Parainfluenza 3 (PCR) Parainfluenza 4 (PCR) RSV (PCR) Entero/Rhino (PCR) 12/14/21 09:05 WBC RBC Hgb Hct MCV MCH MCHC RDW Plt Count Neut % (Auto) Lymph % (Auto) Faulkner % (Auto) Eos % (Auto) Baso % (Auto) Neut # (Auto) Lymph # (Auto) Faulkner # (Auto) Eos # (Auto) Baso # (Auto) D-Dimer Sodium Potassium Chloride Carbon Dioxide BUN Creatinine Estimated GFR BUN/Creatinine Ratio Glucose Lactate Calcium Total Bilirubin AST ALT Alkaline Phosphatase NT-Pro-B Natriuret Pep Total Protein Albumin Globulin Albumin/Globulin Ratio Lipase Procalcitonin Chlamy pneumoniae PCR Not detected Adenovirus (PCR) Not detected B. pertussis DNA (PCR) Not detected B.parapertussis DNA PCR Not detected Coronavirus OC43 (PCR) Not detected Coronavirus HKU1 (PCR) Not detected Coronavirus 229E (PCR) Not detected SARS-CoV-2 (PCR) Not detected Coronavirus NL63 (PCR) Not detected Human Metapneumovir PCR Not detected Influenza Type A (PCR) Not detected Influenza Type B (PCR) Not detected M. pneumoniae (PCR) Not detected Parainfluenza 1 (PCR) Not detected Parainfluenza 2 (PCR) Not detected Parainfluenza 3 (PCR) Not detected Parainfluenza 4 (PCR) Not detected RSV (PCR) Not detected Entero/Rhino (PCR) Not detected Assessment & Plan Assessment & Plan narrative: # acute encephalopathy due to probable psychosis 2/2 lewy body dementia vs other unknown psychiatric illness -patient having worsening delusions and paranoia at home, recently stopped seroquel on her own -head CT in ED negative, can consider MRI however patient may not tolerate -Dr. Stoll contacted by ED who recommended trial of sinemet and if not improvemen to stop it, he feels her symptoms are classic lewy body dementia -continue sinemet 25/100mg TID and reassess for improvement, will likely be able to tell if there is a change -psych consult, hopefully can provide second opinion on psych diagnosis on 12/16 -literature also recommends donepezil for lewy body so can consider adding -monitor for seizures, although unlikely cause of this given no evidence of seizure activity # acute provoked pulmonary embolism -likely due to sitting in ED for 2 days -lovenox 1mg/kg BID -SCDs # acute hypoxic respiratory failure -O2 sats in ED dropped to 88% and requiring supplement O2 -likely due to PE and PNA -wean O2 as able # acute aspiration PNA -per CTA chest -continue zosyn -obtain sputum culture # dysphagia -concern for this given aspiration -speech eval Code status is DNR/DNI. COVID negative. DVT prophylaxis with Lovenox. Proxy is Micky. I have reviewed home meds and used all available resources to reconcile the home meds. Time Spent With Patient Critical Care time: I spent a total of [] minutes of critical care time on this patient's care today; this time is exclusive of procedural time.
--- NOTE | 2021-12-14 11:34 | PC.NURSE ---
Spoke with Dr. Nobles who ordered Eliquis. Informed him that pt currently could not swallow. He will discontinue the order.
[2021-12-14] MEDS: ENOXAPARIN 60 MG/0.6 ML SYRINGE 50 MG SUBCUT ×2 (11:36→22:21)
[2021-12-14 12:25] LABS: TSH w/ Reflex to FT4 2.42 uIU/mL (0.47-4.68)
[2021-12-14 19:11] LABS: Troponin I < 0.012 ng/mL (0.01-0.034)
--- NOTE | 2021-12-14 19:49 | PC.NURSE ---
new admit from ED, arrived in her bed. per report she was somnolent at time of report. allowed her to sleep for about two hours. accompanied by kerrie and sister iesha. their contact info is placed on the white board in the room. patient sitting w/ eyes open about 2 hours after admission to floor. smiled a few times and said a few words. able to state her name, and that she was at [facility]. initally when asked: where are you right now? she simply answered: im right here. when asked about why she was here: for all that has been going on. but after that would not elaborate further. her facial expression is very flat, and her speech went from sparse to no speech and she just stared at me during the conversation. i assured her we are here to help her, and that she is safe. she is able to track w/ her eyes, and after the first initial things she said to me, she stopped talking after that. at bedside, helpful w/ care. patient follows some commands, ignores some and just stares, but does look at her and back to her sister and to this nurse. not consistent w/ movements, speech or mannerisms. does not show s/sx of pain/discomfort. asked around 1800 if patient was allowed to ambulate. due to her immobility, and her current mentation, and the fact that she was in the ED for a few days and hadnt been ambulating, we would wait for a little more cognitive improvement before we attempted to get her up and moving. agreed. daughter came to visit, and patient reacted to her daughter by her eyebrows lifting and she reacted to her daughter greeting her by moving her head around and not just staring w/ a fixed gaze. SHELLI, equal automotive manager, able to move limbs slightly. skin on her face is flushed red, her oral mucosa is smelly, and her tongue is king. due to her NPO status, ice water and toothettes offered and instructed patient on how to use these. seems to have a disconnect w/ her body, and was moving the swab just slightly on her tongue and throwing it in the garbage. LS decreased at bases, w/ fine crackles. o2 at 1lpm via NC. spo2 100% and o2 removed. notified this nurse that swallow eval to be done by nursing, and meds ordered by Dr Stoll(neuro) at [facility] to be given PO. NOC shift nurses will f/u w/ swallow eval. report to NOC shift.
[2021-12-14] MEDS: SODIUM CHLORIDE 0.9% 1,000 ML 100 ML IV (20:01)
[2021-12-14] MEDS: PIPERACILLIN/TAZO 3.375 GM in SODIUM CHLORIDE 0.9% 100 ML IV (20:01)
[2021-12-14] MEDS: CARBIDOPA-LEVODOPA 25/100 TABLET 1 EACH PO (22:20)
[2021-12-14] MEDS: MELATONIN 3 MG TABLET 6 MG PO (22:26)
[2021-12-15 01:21] VITALS: BP 155/93; PULSE 94; RESP 14; O2SAT 100
[2021-12-15] MEDS: PIPERACILLIN/TAZO 3.375 GM in SODIUM CHLORIDE 0.9% 100 ML IV ×2 (03:56→12:00)
[2021-12-15] MEDS: SODIUM CHLORIDE 0.9% 1,000 ML 100 ML IV ×2 (05:52→18:31)
[2021-12-15 05:59] LABS: Add Manual Diff / Slide Review NO; Basophils Absolute Auto 100 /uL (0-100); Basophils Percent Auto 1.1 % (0-2); Eosinophils Absolute Auto 0 /uL (0-450); Eosinophils Percent Auto 0.4 % (2-4); Hemoglobin 12.3 g/dL (12.0-16.0); Lymphocytes Absolute Auto 2000 /uL (1100-4500); Lymphocytes Percent Auto 28.5 % (25-40); Mean Corpuscular HGB Conc 34.2 % (30-36); Mean Corpuscular Volume 90.5 fL (80-100); Monocytes Absolute Auto 700 /uL (0-900); Monocytes Percent Auto 10.6 % (3-14); Neutrophils Absolute Auto 4100 /uL (1500-7000); Neutrophils Percent Auto 59.4 % (50-75); Platelet Count 252 X10^3/uL (150-400); Red Blood Cell Count 3.97 X10^6/uL (4.0-5.2); White Blood Cell Count 6.9 X10^3/uL (4.5-11.0)
[2021-12-15 06:00] VITALS: BP 136/75; PULSE 77; RESP 14; TEMP 36.7; O2SAT 99
[2021-12-15 06:01] LABS: BUN Creatinine Ratio 25.9 (6-22); Blood Urea Nitrogen 14 mg/dL (7-17); Calcium 8.7 mg/dL (8.4-10.2); Carbon Dioxide 29 mmol/L (22-32); Chloride 99 mmol/L (98-107); Estimated Glomerular Filt Rate > 60 mL/min (>60); Glucose 101 mg/dL (80-110); HEMOLYSIS < 15 (0-50); Potassium 3.3 mmol/L (3.4-5.1); Sodium 133 mmol/L (137-145)
--- NOTE | 2021-12-15 07:48 | P.PN_ITS ---
Subjective Subjective Date Patient Seen: 12/15/21 Time Patient Seen: 09:00 Interval history: Patient more alert today and smiling and nodding. at bedside and feels like she looks better today and is slightly more verbal. Exam Vital Signs (past 8 hours): - 12/15/21 01:21 12/15/21 06:00 Temperature 98.0 F Pulse Rate 94 H 77 Respiratory Rate 14 14 Blood Pressure 155/93 H 136/75 Pulse Oximetry 100 99 Oxygen Flow Rate 0 0 Oxygen Delivery Method Nasal Cannula Oxygen Flow Rate 0 Narrative Exam Narrative: GEN: alert, not oriented, appears thin and frail HEENT: moist mucous membranes, PERRL NECK: trachea midline, no JVD CV: regular rate and rhythm, no murmurs PULM: clear bilaterally ABD: soft, nontender, nondistended, no organomegaly EXT: warm and well perfused with no edema NEURO: awake, alert, oriented, no focal deficits, no rigidity, no seizure-like activity Objective Labs Result Diagrams: 12/15/21 05:36 12/15/21 05:36 Labs: Laboratory Results - last 24 hr 12/14/21 12/14/21 12/14/21 08:35 08:35 08:35 WBC 10.6 D RBC 4.53 Hgb 14.0 Hct 40.3 MCV 88.9 MCH 30.9 MCHC 34.8 RDW 13.1 Plt Count 315 Neut % (Auto) 86.0 H Lymph % (Auto) 8.0 L [place] % (Auto) 5.5 Eos % (Auto) 0.0 L Baso % (Auto) 0.5 Neut # (Auto) 9100 H Lymph # (Auto) 900 L [place] # (Auto) 600 Eos # (Auto) 0 Baso # (Auto) 100 D-Dimer Sodium 131 L Potassium 3.6 Chloride 94 L Carbon Dioxide 26 BUN 18 H Creatinine 0.44 L Estimated GFR > 60 BUN/Creatinine Ratio 40.9 H Glucose 156 H Lactate 1.1 Calcium 9.3 Total Bilirubin 0.6 AST 22 ALT 11 Alkaline Phosphatase 75 Troponin I NT-Pro-B Natriuret Pep Total Protein 7.5 Albumin 4.2 Globulin 3.3 Albumin/Globulin Ratio 1.3 Lipase 54 Procalcitonin 0.03 TSH Chlamy pneumoniae PCR Adenovirus (PCR) B. pertussis DNA (PCR) B.parapertussis DNA PCR Coronavirus OC43 (PCR) Coronavirus HKU1 (PCR) Coronavirus 229E (PCR) SARS-CoV-2 (PCR) Coronavirus NL63 (PCR) Human Metapneumovir PCR Influenza Type A (PCR) Influenza Type B (PCR) M. pneumoniae (PCR) Parainfluenza 1 (PCR) Parainfluenza 2 (PCR) Parainfluenza 3 (PCR) Parainfluenza 4 (PCR) RSV (PCR) Entero/Rhino (PCR) 12/14/21 12/14/21 12/14/21 08:35 08:35 08:35 WBC RBC Hgb Hct MCV MCH MCHC RDW Plt Count Neut % (Auto) Lymph % (Auto) [place] % (Auto) Eos % (Auto) Baso % (Auto) Neut # (Auto) Lymph # (Auto) [place] # (Auto) Eos # (Auto) Baso # (Auto) D-Dimer 3790 H Sodium Potassium Chloride Carbon Dioxide BUN Creatinine Estimated GFR BUN/Creatinine Ratio Glucose Lactate Calcium Total Bilirubin AST ALT Alkaline Phosphatase Troponin I < 0.012 NT-Pro-B Natriuret Pep 42 Total Protein Albumin Globulin Albumin/Globulin Ratio Lipase Procalcitonin TSH Chlamy pneumoniae PCR Adenovirus (PCR) B. pertussis DNA (PCR) B.parapertussis DNA PCR Coronavirus OC43 (PCR) Coronavirus HKU1 (PCR) Coronavirus 229E (PCR) SARS-CoV-2 (PCR) Coronavirus NL63 (PCR) Human Metapneumovir PCR Influenza Type A (PCR) Influenza Type B (PCR) M. pneumoniae (PCR) Parainfluenza 1 (PCR) Parainfluenza 2 (PCR) Parainfluenza 3 (PCR) Parainfluenza 4 (PCR) RSV (PCR) Entero/Rhino (PCR) 12/14/21 12/14/21 12/15/21 09:05 11:47 05:36 WBC 6.9 RBC 3.97 L Hgb 12.3 Hct 36.0 MCV 90.5 MCH 31.0 MCHC 34.2 RDW 13.0 Plt Count 252 Neut % (Auto) 59.4 D Lymph % (Auto) 28.5 D [place] % (Auto) 10.6 Eos % (Auto) 0.4 L Baso % (Auto) 1.1 Neut # (Auto) 4100 Lymph # (Auto) 2000 [place] # (Auto) 700 Eos # (Auto) 0 Baso # (Auto) 100 D-Dimer Sodium Potassium Chloride Carbon Dioxide BUN Creatinine Estimated GFR BUN/Creatinine Ratio Glucose Lactate Calcium Total Bilirubin AST ALT Alkaline Phosphatase Troponin I NT-Pro-B Natriuret Pep Total Protein Albumin Globulin Albumin/Globulin Ratio Lipase Procalcitonin TSH 2.42 Chlamy pneumoniae PCR Not detected Adenovirus (PCR) Not detected B. pertussis DNA (PCR) Not detected B.parapertussis DNA PCR Not detected Coronavirus OC43 (PCR) Not detected Coronavirus HKU1 (PCR) Not detected Coronavirus 229E (PCR) Not detected SARS-CoV-2 (PCR) Not detected Coronavirus NL63 (PCR) Not detected Human Metapneumovir PCR Not detected Influenza Type A (PCR) Not detected Influenza Type B (PCR) Not detected M. pneumoniae (PCR) Not detected Parainfluenza 1 (PCR) Not detected Parainfluenza 2 (PCR) Not detected Parainfluenza 3 (PCR) Not detected Parainfluenza 4 (PCR) Not detected RSV (PCR) Not detected Entero/Rhino (PCR) Not detected 12/15/21 05:36 WBC RBC Hgb Hct MCV MCH MCHC RDW Plt Count Neut % (Auto) Lymph % (Auto) [place] % (Auto) Eos % (Auto) Baso % (Auto) Neut # (Auto) Lymph # (Auto) [place] # (Auto) Eos # (Auto) Baso # (Auto) D-Dimer Sodium 133 L Potassium 3.3 L Chloride 99 Carbon Dioxide 29 BUN 14 Creatinine 0.54 Estimated GFR > 60 BUN/Creatinine Ratio 25.9 H Glucose 101 Lactate Calcium 8.7 Total Bilirubin AST ALT Alkaline Phosphatase Troponin I NT-Pro-B Natriuret Pep Total Protein Albumin Globulin Albumin/Globulin Ratio Lipase Procalcitonin TSH Chlamy pneumoniae PCR Adenovirus (PCR) B. pertussis DNA (PCR) B.parapertussis DNA PCR Coronavirus OC43 (PCR) Coronavirus HKU1 (PCR) Coronavirus 229E (PCR) SARS-CoV-2 (PCR) Coronavirus NL63 (PCR) Human Metapneumovir PCR Influenza Type A (PCR) Influenza Type B (PCR) M. pneumoniae (PCR) Parainfluenza 1 (PCR) Parainfluenza 2 (PCR) Parainfluenza 3 (PCR) Parainfluenza 4 (PCR) RSV (PCR) Entero/Rhino (PCR) [facility] Medical History Body posture problem Body posture problem Cervical somatic dysfunction Chicken pox Chronic back pain (~2018) Compression fracture of L1 vertebra with routine healing Cranial somatic dysfunction Facet arthropathy Knee pain (~2008) Kyphosis (acquired) (postural) Musculoskeletal problem (~2018) Osteoporosis Pelvic somatic dysfunction Rib pain on left side Scoliosis Segmental and somatic dysfunction of abdomen and other regions Segmental and somatic dysfunction of lower extremity Segmental and somatic dysfunction of lumbar region Segmental and somatic dysfunction of rib cage Segmental and somatic dysfunction of sacral region Segmental and somatic dysfunction of thoracic region Segmental and somatic dysfunction of upper extremity Skin rash (~2018) Vision disorder Surgical History History of cataract removal with insertion of prosthetic lens (~2015) Family History Father Cancer Mother History of heart disease Social History household members: spouse Smoking Status: Never smoker Assessment & Plan Assessment & Plan narrative: # acute encephalopathy with psychosis 2/2 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 Stoll contacted by ED who recommended trial of sinemet and if not improvement to stop it, he feels her symptoms are classic lewy body dementia -continue sinemet 25/100mg TID and reassess for improvement, says she appears somewhat better so will continue for now -psych consult, hopefully can provide second opinion on psych diagnosis on 12/16 -literature also recommends donepezil for lewy body so can consider adding -monitor for seizures, although unlikely cause of this given no evidence of seizure activity # acute provoked pulmonary embolism, present on admission -likely due to sitting in ED for 2 days -lovenox 1mg/kg BID -SCDs # acute hypoxic respiratory failure, resolved -O2 sats in ED dropped to 88% and requiring supplement O2 -likely due to PE and PNA -able to wean off O2 quickly # acute aspiration PNA -per CTA chest with right lower lobe opacity -continue zosyn and treat for 7 days -obtain sputum culture if able -blood culture NGTD # dysphagia, resolved -concern for this given aspiration, however passed bedside swallow with RN and tolerating oral meds Code status is DNR/DNI. COVID negative. DVT prophylaxis with Lovenox. Proxy is Micky. I have reviewed home meds and used all available resources to reconcile the home meds. Dispo: Pending psych eval and possible memory care placement. Time Spent With Patient Critical Care time: I spent a total of [] minutes of critical care time on this patient's care today; this time is exclusive of procedural time. Quality VTE Deep Vein Thrombosis/Pulmonary Embolism Present on Admission: Yes
[2021-12-15] MEDS: CARBIDOPA-LEVODOPA 25/100 TABLET 1 EACH PO ×3 (08:15→20:17)
[2021-12-15] MEDS: ENOXAPARIN 60 MG/0.6 ML SYRINGE 50 MG SUBCUT (08:15)
[2021-12-15] MEDS: POTASSIUM CHLORIDE IN WATER 10 MEQ/100 ML PIGGYBACK 100 MEQ IV ×4 (09:17→13:21)
--- NOTE | 2021-12-15 11:17 | CM.DPC ---
Addendum entered by Marla Abarca GLOBAL PROGRAM MANAGER 12/15/21 15:41: ADD: SW met bedside again with pt and spouse and RN was in the room and pt was sitting up in chair and eating some of her lunch and able to participate a little more with conversation and seemed to be tracking the discussion but needed time to respond to questions. Per RN, pt has not urinated all day and has full bladder and attempting to independently void before trying block cath. Pt ambulated somewhat unsteady at first but then able to steady herself. Pt able to state she's not sure she is up for PT eval yet today but spouse feels ambulation will be helpful. PT eval pending. SW discussed more pending pt's needs at d/c the ongoing possible options of d/c to Inpt MH tx if available, Memory Care, or home with PP CGs if needed. Spouse preference is home if possible still but wants to make sure that pt can shower and ambulate and void either independently or with minimal assist. Spouse very agreeable with HH if pt safe for home. Pt has been calm, cooperative and seems to wax and wane with her ability to participate in goal directed discussion and tracking. SW discussed need for pt to be medically stable/cleared before further Inpt MH tx can be pursued if they feel this is still needed and the need to begin placing phone calls tomorrow Mon AM to determine if memory care or PP CG available if needed. BF Original Note: DCP Cont: Per MD, pt continues to be treated for pneumonia and PE and ST ordered and pending for some dysphagia. PT/OT ordered today and pending as pt has not been ambulating much since admission and stay in the ED and now on the acute care floor. Per MD, Neurologist Dr. Stoll was consulted again since he completed pt's Neuro eval and recommended not restarting the Seroquel but starting Sinemet to see if this is helpful in pt's symptoms. placed Psych Consult Order for hopeful bedside assessment tomorrow and requested family be beside during that consult to provide more historical information. Per previous [facility] reviewing to determine if they might be able to accept as pt has a recent hx at [facility] for initial dx Lewy Body dementia. [facility] also reviewing for possible acceptance tomorrow 12/16/21 when they anticipate bed availability. Pt not yet medically stable for ongoing attempts at Inpt MH tx today. SW met bedside with pt and spouse Micky and explained role and unclear if pt recognized this SW but was able to provide some small amounts of information and was able to express that she did not feel safe leaving the hospital or her home at this time. Pt fidgeting with her hands and has tremors with her hands and has been able to tolerate small amount of pudding and water and attempting crackers. Spouse confirms pt has always eaten like a bird, but healthy food when she eats. Spouse states he is hopeful for Psych Consult tomorrow for either med management or clearer dx. Spouse preference is if at all safe and possible to have pt at home and denies that she has attempted any exit seeking or wandering at home and that we have been doing quite well with a good routine at home up until the past few days. Dtr lives in [place] and is very supportive and is currently on maternity leave from work and therefore more available but also has 2 children at home and youngest being 5 months old but able to assist with planning. SW provided the Senior Resource Guidebook to spouse and earmarked and discussed Memory Care facilities and PP CG agency list and discussed importance of calling places now to get a sense of cost, availability, and maybe touring custodial care facilities for either need at d/c or in the future. Spouse acknowledged understanding and seems to have realistic expectations of needs. Plan: SW to follow closely for hopeful Psych Consult by Yaima Aponte tomorrow 12/16/21 and further assessment once medically cleared and PT/OT/ST eval and recommendations towards determining if Inpt MH tx still needed for stabilization vs plan of home with assist vs custodial care placement. TODD Stewart
[2021-12-15 12:00] VITALS: BP 150/74; PULSE 58; RESP 20; TEMP 36.4; O2SAT 100
--- NOTE | 2021-12-15 16:25 | PT.IIE ---
Current Diagnoses Pneumonitis due to inhalation of food and vomit (12/14/21) Surgical History (Last Reviewed 12/14/21 @ 11:33 by Fabio Nobles DO) History of cataract removal with insertion of prosthetic lens (~2015) Medical History (Last Reviewed 12/14/21 @ 11:33 by Fabio Nobles DO) Body posture problem Body posture problem Cervical somatic dysfunction Chicken pox Chronic back pain (~2018) Compression fracture of L1 vertebra with routine healing Cranial somatic dysfunction Facet arthropathy Knee pain (~2008) Kyphosis (acquired) (postural) Musculoskeletal problem (~2019) Osteoporosis Pelvic somatic dysfunction Rib pain on left side Scoliosis Segmental and somatic dysfunction of abdomen and other regions Segmental and somatic dysfunction of lower extremity Segmental and somatic dysfunction of lumbar region Segmental and somatic dysfunction of rib cage Segmental and somatic dysfunction of sacral region Segmental and somatic dysfunction of thoracic region Segmental and somatic dysfunction of upper extremity Skin rash (~2018) Vision disorder Physical Therapy Inpatient Evaluation/Re-Eval M1 PT/OT-IP Prior Functional Status Start: 12/15/21 15:49 Freq: NEEDED Status: Active Protocol: Document 12/15/21 16:25 AW (Rec: 12/15/21 16:56 AW [id number]) Medical Review Prior Functional Status Medical History Reviewed Yes Communication Lewy body dementia is in the differential. Pt is intermittently verbal. She appears able to communicate her needs to her spouse. Chart notes indicate increasing frequency of delusions and paranoia at home. Mobility and Gait Pt has chronic back pain and uses bilateral walking sticks inside her home and in her yard. Her spouse denies falls. Activities of Daily Living and IADL's Until the past week, pt has been able to manage her ADL's independently. She has declined rapidly and her spouse is providing assist with dressing and showering. Social History Household Members spouse Living Arrangements House Number of Floors (Floors) One Floor Number of Stairs To Enter/Railing? 2 stairs with B rails + 2 stairs with R rail ascending to enter the home. Home Environment Standard Height Toilet,Tub/ Shower Home Equipment Grab Bars In Shower Employment Status Retired Additional Social History Comment Pt has and regularly uses B walking sticks. 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 She lives in [place] with her attentive spouse, Micky. M2 PT-IP Current Condition Start: 12/15/21 15:49 Freq: NEEDED Status: Active Protocol: Document 12/15/21 16:25 AW (Rec: 12/15/21 16:56 AW [id number]) Physical Therapy Current Condition Current Condition Evaluation Date 12/15/21 Treatment Diagnosis acute encepahalopathy; possible Lewy body dementia; slow unsteady gait Onset Date 1 week M3 PT-IP Subjective Start: 12/15/21 15:49 Freq: NEEDED Status: Active Protocol: Document 12/15/21 16:25 AW (Rec: 12/15/21 16:56 AW [id number]) Subjective Physical Therapy Visit Type Type Initial Evaluation Visit Start Time 15:57 Visit Stop Time 16:25 Total Visit Minutes 28 Notes Pt's spouse was present and contributed heavily to history . Physical Therapy Visit Comments Patient Comments Pt nods consent to participate with PT Patient Goals Pt's spouse states he hopes she can return home. M4 PT-IP Mobility and Gait Start: 12/15/21 15:49 Freq: NEEDED Status: Active Protocol: Document 12/15/21 16:25 AW (Rec: 12/15/21 16:56 AW [id number]) PT-Bed Mobility Assessment Supine to Sit Supine to Sit Minimal Assistance,1 Person Assistance Scooting Scooting to Edge of Bed Contact Guard Assistance PT-Transfer Assessment Sit to and From Stand Sit to and from Stand Contact Guard Assistance,Use of Upper Extremities Equipment Transfer Assistive Device Gait Belt Orthotic/Prosthetic Devices or Brace: No Transfers Transfer Destination Chair Transfer Technique pt ambulated with B trekking poles Transfer Ability Level of Assist Contact Guard Assistance, Minimal Assistance Comments Mobility Comments Pt was lying in bed as PT arrived. BP 150/70 HR 62. She sat up EOB with intermittent min A for balance support. She stood CGA due to initial unsteadiness. She was able to follow commands and used B trekking poles to walk ~150 feet CGA in the halls before returning to the room. Spouse managed IV pole. PT offered the chair or the bed but pt wanted to sit on the window seat. She was not verbalizing at this point but nodded affirmation when asked if she was cold. Pt's spouse sat with her on the window seat and PT provided warm blankets for comfort. Pt was left with spouse who agreed to call for any mobility related needs. Gait Assessment Gait Gait Assistance Required: Contact Guard Assist Distance (Feet) 150 Assistive Devices Assistive Device Gait Belt Orthotic/Prosthetic Devices or Brace: No Gait Deviations General Gait Pattern Decreased Stride Length, Decreased Feet Clearance, Festinating,Flexed Trunk, Narrow Based Gait Factors Limiting Gait Function Factors Limiting Gait Function Abnormal Tonal Influences, Difficulty Following Directions,Pain,Poor Balance, Poor Safety Awareness Comments Gait Comments Pt generally needed only CGA for ambulation with B trekking poles but did need verbal cues for obstacle management and environmental awareness due to high distractibility. Stair Climbing Assessment Comments Stair Climbing Comments Not assessed. PT-Balance Assessment Sitting Balance and Reactions Static Sitting Balance Ability Good Dynamic Sitting Balance Ability Good Standing Balance and Reactions Static Standing Balance Ability Fair Dynamic Standing Balance Ability Fair Device Used B trekking poles M5 PT-IP Objective Assessments Start: 12/15/21 15:49 Freq: NEEDED Status: Active Protocol: Document 12/15/21 16:25 AW (Rec: 12/15/21 16:56 AW [id number]) Orientation Orientation/Cognition Level of Alertness Confusional State Orientation Name,Place Safety Awareness Decreased Safety Awareness Memory Description Short Term Impaired Comments Pt used verbal communication intermittently but was largely non-verbal during this encounter. She did follow simple commands for direction but was unable to follow directions for strength testing. Gross Range of Motion Lower Extremity ROM Assessment Within Functional Limits Strength Comments Strength Comments Strength was judged only functionally as pt was unable to follow commands for MMT. Pt able to ambulate with trekking poles. Tremulous extremities likely interfered more with safe mobility than did lack of strength. Sensation Assessment Comments Sensation Comments Unable to formally assess Muscle Tone Muscle Tone WNL No Comments Muscle Tone Comments Truncal rigidity and facial masking noted. Pt has tremors in all extremities with UE's more affected than LE's at this encounter. M6 PT-IP Treatment Start: 12/15/21 15:49 Freq: NEEDED Status: Active Protocol: Document 12/15/21 16:25 AW (Rec: 12/15/21 16:56 AW [id number]) Physical Therapy Treatment Education Education Provided Safety M7 PT-IP Assessment and Plan Start: 12/15/21 15:49 Freq: NEEDED Status: Active Protocol: Document 12/15/21 16:25 AW (Rec: 12/15/21 16:56 AW [id number]) PT Summary Assessment and Plan Potential Rehabilitation Potential Good Status of Condition at Evaluation Evolving Summary Impairments Pain,Strength,Balance,Tone, Cognition,Bed Mobility, Transfers,Gait Assessment Summary Kiera is a 71 yo woman with possible Lewy body dementia and acute encephalopathy. She is independent with ADL's and uses bilateral trekking poles at baseline for modified independent mobility. Pt's spouse notes gait speed over the past week has decreased. Pt is highly distractible and minimally verbal. She has truncal rigidity, tremulous extremities, and poor situational awareness complicating her mobility but no overt loss of balance during ambulation with poles and CGA. Pt has her spouse to assist her at home. Depending on progress during this hospital stay, pt may benefit from home health therapies to address mobility concerns in pt's [place] environment. Goals Bed Mobility Goal Standby Assistance Transfer Goal Standby Assistance Gait Goal Standby Assistance Gait Distance 500 Other Goals [gait goal to completed with B trek poles] - up/down 4 steps with unilateral rail SBA Days to Meet Goals 5 Frequency of Treatment Frequency Of Treatment Once a Day Treatment Plan Physical Therapy Treatment Plan Bed Mobility Training,Transfer Training,Gait Training, Therapeutic Exercise,Balance Retraining,Discharge Planning, Hot or Cold Pack,Neuromuscular Re-ed Precautions Other Precautions pt only intermittently verbal Recommendations To Nursing Amount of Assist Needed 1 Person Assist Discharge Recommendations PT Discharge Recommendations Home with 27/10 Assist Available,Home Health Transportation Needs at Discharge Private Vehicle
[2021-12-15 18:00] VITALS: BP 147/69; PULSE 60; RESP 18; TEMP 36.6; O2SAT 99
[2021-12-15] MEDS: MELATONIN 3 MG TABLET 6 MG PO (20:17)
[2021-12-15] MEDS: APIXABAN 5 MG TABLET 10 MG PO (20:18)
[2021-12-16] VITALS: BP 138/77; PULSE 80; RESP 16; TEMP 36.7; O2SAT 99
--- NOTE | 2021-12-16 02:07 | PC.NURSE ---
Addendum entered by Eduardo eBrmudez R.N. 12/16/21 06:53: Pt continues to pick and pull all things around her. Almost pulled out L arm IV, RN was able to save it and put 2 tegaderm, coban and netting around IV to help prevent further pull out. Original Note: Meds given crushed with applesauce. Pt following directions with lots of cuing and redirecting. RN provided oral care, pt wanting to brush teeth herself but was confused on how. RN performed ADL. Pt able to swish and swallow. Chapstick applied after. This is much improvement from yesterday where pt was unable to respond or follow directions. Pt turning on own. Pt able to have a small conversation and smile this shift.
[2021-12-16] MEDS: SODIUM CHLORIDE 0.9% 1,000 ML 100 ML IV (03:58)
[2021-12-16 05:57] LABS: BUN Creatinine Ratio 26.7 (6-22); Blood Urea Nitrogen 8 mg/dL (7-17); Calcium 8.1 mg/dL (8.4-10.2); Carbon Dioxide 23 mmol/L (22-32); Chloride 99 mmol/L (98-107); Estimated Glomerular Filt Rate > 60 mL/min (>60); Glucose 97 mg/dL (80-110); HEMOLYSIS < 15 (0-50); Potassium 3.1 mmol/L (3.4-5.1); Sodium 131 mmol/L (137-145)
[2021-12-16 06:00] VITALS: BP 128/72; PULSE 76; RESP 17; TEMP 37.1; O2SAT 96
--- NOTE | 2021-12-16 09:29 | CM.DPC ---
Addendum entered by TODD Stewart 12/16/21 14:07: ADD: SW met bedside with spouse and Dtr and pt who could slightly participate in discussion after Psychiatrist Consult bedside with Dr. Montiel who recommends restarting Seroquel twice a day. Family confirms their preference would be Inpt MH tx at [facility] for stability and med management and SW discussed likely short length of stay depending on pt needs and to begin preparing for longwall headgate operator care assist and calling PP CG agencies and Memory Care units to determine options and cost in case pt needs additional assist still after Inpt tx. Both Dtr and spouse very agreeable and willing to begin taking those steps. SW inquired with pt if she was willing to go to Inpt MH tx and pt nodded her head yes and spouse confirms he is her DPOA and provided copy of pwk and is willing for pt to go to Inpt Tx voluntarily. SW [facility]ed [facility] ([phone]) updated MD prog note from today stating pt is medically cleared for d/c to Inpt MH tx and DPOA pwk and they are reviewing to determine if they can accept. BF Original Note: DCP Cont: SW updated MD on pt situation and per PT eval yesterday later afternoon pt was able to ambulate with walking sticks CGA in the hallways and able to follow simple commands but was unable to follow more indepth directions. Pt less verbal as eval continued but able to express some understanding and communication with nodding her head. DARLENE called [facility] and confirmed they were aware of Psych Consult orders placed yesterday Sun and discussed pt situation some and no confirmed time or that Psychiatrist can be bedside for consult today but front staff will relay the information to their Psychiatrists and aware of the urgency. DARLENE called following Inpt MH tx facilities previously called: [facility]- confirm they cannot accept pt due to their Psychiatrist previously consulting with pt at [facility] with likely dementia with lewy body symptoms and possible Parkinsonian's symptoms in June 2021 this year and [facility] cannot accept possible dementia dx patients. Recommendation had been outpt f/u with [facility]. [facility]- supposedly reviewing for possible bed availability for today Thursday and called and left msg requesting call back but also faxed updated clinicals to fax [phone] for review. [facility]- left msg. Can try net front end developer [phone] if intake does not call back and request intake/optometric coordinator be paged. [facility]- remains full [facility]- left msg [facility]- can accept geriatric but not potential dx of dementia. Plan: SW to continue to follow today with above listed facilities and with pt/spouse and possible Psych Consult to determine best discharge plan and if Inpt MH tx is an option at d/c. TODD Stewart
[2021-12-16] MEDS: CARBIDOPA-LEVODOPA 25/100 TABLET 1 EACH PO ×3 (09:37→23:38)
[2021-12-16] MEDS: POTASSIUM CHLORIDE 20 MEQ/15 ML UDC 40 MEQ PO (09:37)
[2021-12-16] MEDS: APIXABAN 5 MG TABLET 10 MG PO ×2 (09:38→23:36)
--- NOTE | 2021-12-16 10:49 | OT.IP.EVAL ---
Current Diagnoses Pneumonitis due to inhalation of food and vomit (12/14/21) Past Medical History (Last Reviewed 12/14/21 @ 11:33 by Fabio Nobles DO) Body posture problem Body posture problem Cervical somatic dysfunction Chicken pox Chronic back pain (~2018) Compression fracture of L1 vertebra with routine healing Cranial somatic dysfunction Facet arthropathy Knee pain (~2008) Kyphosis (acquired) (postural) Musculoskeletal problem (~2018) Osteoporosis Pelvic somatic dysfunction Rib pain on left side Scoliosis Segmental and somatic dysfunction of abdomen and other regions Segmental and somatic dysfunction of lower extremity Segmental and somatic dysfunction of lumbar region Segmental and somatic dysfunction of rib cage Segmental and somatic dysfunction of sacral region Segmental and somatic dysfunction of thoracic region Segmental and somatic dysfunction of upper extremity Skin rash (~2018) Vision disorder Surgical History (Last Reviewed 12/14/21 @ 11:33 by Fabio Nobles DO) History of cataract removal with insertion of prosthetic lens (~2015) Occupational Therapy Inpatient Evaluation/Re-Eval M1 PT/OT-IP Prior Functional Status Start: 12/15/21 15:49 Freq: NEEDED Status: Active Protocol: Document 12/16/21 11:54 CGR (Rec: 12/16/21 12:14 CGR [id number]) Medical Review Prior Functional Status Medical History Reviewed Yes Communication Lewy body dementia is in the differential. Pt is intermittently verbal. She appears able to communicate her needs to her spouse. Chart notes indicate increasing frequency of delusions and paranoia at home. Mobility and Gait Pt has chronic back pain and uses bilateral walking sticks inside her home and in her yard. Her spouse denies falls. Activities of Daily Living and IADL's Until the past week, pt has been able to manage her ADL's independently. Social History Household Members spouse Living Arrangements House Number of Floors (Floors) One Floor Number of Stairs To Enter/Railing? 2 stairs with B rails + 2 stairs with R rail ascending to enter the home. Home Environment Standard Height Toilet,Tub/ Shower Home Equipment Grab Bars In Shower Employment Status Retired Additional Social History Comment Pt has and regularly uses B walking sticks. 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 She lives in [place] with her attentive spouse, Micky. M1 PT/OT-IP Prior Functional Status Start: 12/16/21 11:53 Freq: NEEDED Status: Active Protocol: Document 12/16/21 11:54 CGR (Rec: 12/16/21 12:14 R [id number]) Medical Review Prior Functional Status Medical History Reviewed Yes Communication Lewy body dementia is in the differential. Pt is intermittently verbal. She appears able to communicate her needs to her spouse. Chart notes indicate increasing frequency of delusions and paranoia at home. Mobility and Gait Pt has chronic back pain and uses bilateral walking sticks inside her home and in her yard. Her spouse denies falls. Activities of Daily Living and IADL's Until the past week, pt has been able to manage her ADL's independently. Social History Household Members spouse Living Arrangements House Number of Floors (Floors) One Floor Number of Stairs To Enter/Railing? 2 stairs with B rails + 2 stairs with R rail ascending to enter the home. Home Environment Standard Height Toilet,Tub/ Shower Home Equipment Grab Bars In Shower Employment Status Retired Additional Social History Comment Pt has and regularly uses B walking sticks. 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 She lives in [place] with her attentive spouse, Micky. M2 OT-IP Current Condition Start: 12/16/21 11:53 Freq: Status: Active Protocol: Document 12/16/21 11:54 CGR (Rec: 12/16/21 12:14 R [id number]) Occupational Therapy Current Condition Current Condition Evaluation Date 12/16/21 Treatment Diagnosis acute psychosis, PE, aspiration PNA, Lewy body dementia Diagnosis Onset Date 12/14/21 M3 OT- IP Subjective and Pain Start: 12/16/21 11:53 Freq: Status: Active Protocol: Document 12/16/21 11:54 CGR (Rec: 12/16/21 12:14 R [id number]) OT- Subjective Occupational Therapy Visit Type Type Initial Evaluation Visit Start Time 10:07 Visit Stop Time 10:49 Total Visit Minutes 42 Notes Pt's present throughout session. M4 OT- IP ADL's Start: 12/16/21 11:53 Freq: Status: Active Protocol: Document 12/16/21 11:54 CGR (Rec: 12/16/21 12:14 R [id number]) OT [id number] Comments OT Self-Feeding Comments not meal time but noted drooling significant amounts of liquid at time from her mouth. OT ADL-Grooming General Evaluation Grooming Ability Moderate Assistance,Maximum Assistance Areas Needing Assistance Combing/Brushing Hair Comments OT Grooming Comments standing at sink. Pt initially started to use her tooth brush to brush her hair. Pt then provided with the hair brush and she attempted to bring it to her mouth. OT ADL-Oral Care General Eval Oral Care Ability Moderate Assistance Areas of Assistance Brushing Teeth Comments Oral Care Comments Pt was able to open tooth paste and close it but applies minimal tooth paste and washed it away prior to brining it to her mouth. Assisted with applying more tooth paste. Pt needs extra time for each activity and would need total assist for a thorough brushing. OT ADL-Dressing Comments OT Dressing Comments not performed on this date OT ADL-Toileting General Evaluation Toileting Ability Moderate Assistance Areas Needing Assistance Manage Clothing Comments OT Toileting Comments Pt with block but willing to attempt toileting. Pt perseverated first on gettign brief down then on getting it up. OT ADL-Bathing Comments OT Bathing Comments not performed M5 OT- IP IADL's Start: 12/16/21 11:53 Freq: Status: Active Protocol: Document 12/16/21 11:54 CGR (Rec: 12/16/21 12:14 CGR [id number]) OT-Instrumental Activities of Daily Living Deficits IADL Deficits Identified Deficits Home Safety Awareness Awareness of Need for Assistance at Home Decreased Awareness Ability to Problem Solve Emergency Unable to Problem Solve Situations Medication Management Medication Management Caregiver Administers Money Management Money Management Caregiver Provides Assistance Meal Preparation Meal Preparation Caregiver Provides Assist Bridges Supervisor Bridges Supervisor Caregiver Provides Assist OT- IP Functional Cognition Start: 12/16/21 11:53 Freq: Status: Active Protocol: Document 12/16/21 11:54 CGR (Rec: 12/16/21 12:14 CGR [id number]) Cognitive Factors Limiting Selfcare Function Cognitive Ability Level of Alertness Alert,Lethargic Patient Orientation Name,Place Attention Span Ability Unable to Focus,Unable to Sustain Attention Ability to Follow Commands Able to Follow One Step Commands with Increased Time, Able to Follow One Step Commands with Repetition Cognitive Comments Cognitive Assessment Comments Pt needs extra time to follow commands. OT- Vision and Hearing OT- Hearing Assessment OT- Hearing Assessment WFL OT- Vision Assessment Visual Acuity Glasses All The Time Visual Attentiveness WFL Occular Pursuits WFL Visual Convergence WFL Vision Assessment Comments Pt was able to follow commands for visual testing. M7 OT- IP Mobility and Balance Start: 12/16/21 11:53 Freq: Status: Active Protocol: Document 12/16/21 11:54 CGR (Rec: 12/16/21 12:14 CGR [id number]) OT-Transfer Assessment Sit to and From Stand Sit to and from Stand Contact Guard Assistance Transfers Transfer Ability Contact Guard Assistance Technique Transfer Destination Chair,Toilet Transfer Technique Stand Step Pivot Devices Transfer Assistive Devices Gait Belt Comments Mobility Comments Pt uses 2 walking sticks for mobility around the room. Noted significant crepitus to the R knee with mobility and specifically with sit<>stand. OT- Gait Assessment Gait Gait Assistance Required: Contact Guard Assist Assistive Devices Assistive Device Gait Belt Comments Gait Ability Comments mobility around the room with 2 walking sticks. OT- Balance Assessment Sitting Balance and Reactions Static Sitting Balance Ability Fair Dynamic Sitting Balance Ability Poor M8 OT- IP Objective Assessments Start: 12/16/21 11:53 Freq: Status: Active Protocol: Document 12/16/21 11:54 CGR (Rec: 12/16/21 12:14 CGR [id number]) OT Gross Range of Motion Upper Extremity Range of Motion Assessment Within Functional Limits OT Strength Upper Extremity Strength Assessment Within Functional Limits Comments Strength Comments 4-/5 to shlds and arms, 3+/5 to hands OT- Coordination Assessment Upper Extremity Finger to Nose Test Within Functional Limits Finger Tapping Test Within Functional Limits Comments Coordination Comments with extra time for activity. OT-Muscle Tone Assessment Muscle Tone WNL No OT Sensation Assessment Edema Edema Absent M9 OT- IP Assessment and Plan Start: 12/16/21 11:53 Freq: Status: Active Protocol: Document 12/16/21 11:54 CGR (Rec: 12/16/21 12:14 CGR [id number]) OT Summary Assessment and Plan Potential Rehabilitation Potential Fair Analytic Complexity at Evaluation Moderate Summary OT Impairments Strength,Balance,Functional Cognition,Functional Mobility, Self-Feeding,Grooming,Dressing ,Toileting,Bathing,Toilet Transfers,Shower Transfers, Activity Tolerance Progress Towards Goals Slow Progress due to Medical Issues,Slow Progress due to Cognition Assessment Summary Pt presents as a moderate complexity evaluation s/p admit for AMS, acute psychosis , PE, and aspiration PNA. Current diagnosis is Lewy body dementia. Pt needed assist with all ADLs and was CGA for mobility. Discussed with pt's and he would like to take pt home but understands that he can't care for her alone given her decline. Recommend home with assist vs memory care. Goals Self-Feeding Goal Independent Grooming Goal Standby Assistance Dressing Goal Standby Assistance Toileting Goal Standby Assistance Bathing Goal Standby Assistance Toilet Transfer Goal Standby Assistance Shower Transfer Goal Standby Assistance Days to Meet Goals 10 Frequency of Treatment Frequency Of Treatment Once a Day Treatment Plan OT Treatment Plan ADL Training,Functional Cognition Training,Functional Mobility,Patient/Family Education,Discharge Planning Other Treatment Recommendations and Next shower Treatment Focus Discharge Recommendations OT Discharge Recommendations Home vs SNF Other Discharge Recommendations home with assist (additional caregivers) vs [facility] Equipment Needs tub transfer bench, BSC for night time use. Transportation Needs at Discharge Private Vehicle
--- NOTE | 2021-12-16 11:27 | PT.IPTN ---
Current Diagnoses Pneumonitis due to inhalation of food and vomit (12/14/21) Physical Therapy Treatment Note M2 PT-IP Current Condition Start: 12/15/21 15:49 Freq: NEEDED Status: Active Protocol: Document 12/16/21 10:58 SP (Rec: 12/16/21 12:34 SP [id number]) Physical Therapy Current Condition Current Condition Evaluation Date 12/15/21 Treatment Diagnosis acute encepahalopathy; possible Lewy body dementia; slow unsteady gait Onset Date 1 week M3 PT-IP Subjective Start: 12/15/21 15:49 Freq: NEEDED Status: Active Protocol: Document 12/16/21 10:58 SP (Rec: 12/16/21 12:34 SP [id number]) Subjective Physical Therapy Visit Type Type Treatment Note Visit Start Time 10:58 Visit Stop Time 11:27 Total Visit Minutes 29 Notes Vitals taken pre mobility: BP 112/73, HR 95, SaO2 95% on RA. and Daughter in room when arrived, left during tx to speak with care mgt and hospitalist. Number of INSTRUCTOR LOOPING Visits 1 Physical Therapy Visit Comments Patient Comments Pt verbalized ok, yes appropriately with time to process throughout tx. Patient Goals Pt's spouse states he hopes she can return home. M4 PT-IP Mobility and Gait Start: 12/15/21 15:49 Freq: NEEDED Status: Active Protocol: Document 12/16/21 10:58 SP (Rec: 12/16/21 12:34 SP [id number]) PT-Transfer Assessment Sit to and From Stand Sit to and from Stand Contact Guard Assistance,Use of Upper Extremities Equipment Transfer Assistive Device Gait Belt Orthotic/Prosthetic Devices or Brace: No Transfers Transfer Destination Chair Transfer Technique pt ambulated with B trekking poles Transfer Ability Level of Assist Contact Guard Assistance, Minimal Assistance,Use of Upper Extremities Comments Mobility Comments Pt required cues, demonstration to follow and target to perform to at times to completed instructed seated LAQ, marching. Scoot to EOchair cues to complete fully . Sit<>Stand CGA. Gait around room and back to chair using B trek poles, occasional delay in advancement of L pole but stable, no sway/LOB. Pt used trek pole to reach for something in corner of room during gait, redirected nothing there, she didn't answer when asked what sees. Seated rest when returned to chair 1 min. Then completed 3 STS for strengthening mobility . She at times repositions catheter and pulling up blue brief which was fully elevated . Pt complete 1 more lap in room B trek poles CGA, occasional cues for obstacle mgt IV pole during turn. Pt was seated in chair, chair alarm donned, call light and all needs in reach before left . Pt's family speaking with hospitalist in hallway outside of room when leaving. Gait Assessment Gait Gait Assistance Required: Contact Guard Assist Distance (Feet) 60 Able to Maintain Weight Bearing Status Yes During Gait Assistive Devices Assistive Device Gait Belt Orthotic/Prosthetic Devices or Brace: No Gait Deviations General Gait Pattern Decreased Stride Length, Decreased Feet Clearance, Flexed Trunk,Narrow Based Gait Factors Limiting Gait Function Factors Limiting Gait Function Abnormal Tonal Influences, Difficulty Following Directions,Pain,Poor Balance, Poor Safety Awareness Comments Gait Comments mobility around the room with 2 walking sticks, cued upright shoulder posturing, at times LUE advancement CGA and obstacle mgt, no sways or LOB. Stair Climbing Assessment Comments Stair Climbing Comments Not assessed, will need complete 2 stairs 1 BHR, 2 stairs R HR to enter home for DC plan home before leaves. PT-Balance Assessment Sitting Balance and Reactions Static Sitting Balance Ability Fair Dynamic Sitting Balance Ability Poor Standing Balance and Reactions Static Standing Balance Ability Fair Dynamic Standing Balance Ability Fair Device Used B trekking poles M5 PT-IP Objective Assessments Start: 12/15/21 15:49 Freq: NEEDED Status: Active Protocol: Document 12/15/21 16:25 AW (Rec: 12/15/21 16:56 AW [id number]) Orientation Orientation/Cognition Level of Alertness Confusional State Orientation Name,Place Safety Awareness Decreased Safety Awareness Memory Description Short Term Impaired Comments Pt used verbal communication intermittently but was largely non-verbal during this encounter. She did follow simple commands for direction but was unable to follow directions for strength testing. Gross Range of Motion Lower Extremity ROM Assessment Within Functional Limits Strength Comments Strength Comments Strength was judged only functionally as pt was unable to follow commands for MMT. Pt able to ambulate with trekking poles. Tremulous extremities likely interfered more with safe mobility than did lack of strength. Sensation Assessment Comments Sensation Comments Unable to formally assess Muscle Tone Muscle Tone WNL No Comments Muscle Tone Comments Truncal rigidity and facial masking noted. Pt has tremors in all extremities with UE's more affected than LE's at this encounter. M6 PT-IP Treatment Start: 12/15/21 15:49 Freq: NEEDED Status: Active Protocol: Document 12/16/21 10:58 SP (Rec: 12/16/21 12:34 SP [id number]) Physical Therapy Treatment Other Treatments Other Treatment Performed seated LAQ, marching, 3 x STS with cues for continue performing. M7 PT-IP Assessment and Plan Start: 12/15/21 15:49 Freq: NEEDED Status: Active Protocol: Document 12/16/21 10:58 SP (Rec: 12/16/21 12:34 SP [id number]) PT Summary Assessment and Plan Potential Rehabilitation Potential Good Status of Condition at Evaluation Evolving Summary Impairments Pain,Strength,Balance,Tone, Cognition,Bed Mobility, Transfers,Gait Progress Towards Goals Progressing Toward Goals,Slow Progress due to Activity Tolerance Assessment Summary Kiera requires cuing and time to process, motor plan requests, she verbalized yes/ OK when requesting mobility. CGA and use of trek poles during mobility. Recommend CGT with next tx, need completed stair mgt 2 BHRx2 RHR stairs when able to assess home enterance mgt. Pt is highly distractible and minimally verbal. She has little tremulous extremities, and poor situational awareness complicating her mobility but no overt loss of balance during ambulation with B trek poles and CGA. Pt has her spouse to assist her at home. Depending on progress during this hospital stay, pt may benefit from home health therapies to address mobility concerns in pt's elim ira environment. Goals Bed Mobility Goal Standby Assistance Transfer Goal Standby Assistance Gait Goal Standby Assistance Gait Distance 500 Other Goals [gait goal to completed with B trek poles] - up/down 4 steps with unilateral rail SBA Days to Meet Goals 5 Frequency of Treatment Frequency Of Treatment Once a Day Treatment Plan Physical Therapy Treatment Plan Bed Mobility Training,Transfer Training,Gait Training, Therapeutic Exercise,Balance Retraining,Discharge Planning, Hot or Cold Pack,Neuromuscular Re-ed Other Recommendations and Next Treatment 5xSTS, gait with trek poles Focus distance, assess stair mgt and CGT with . Precautions Other Precautions pt only intermittently verbal Recommendations To Nursing Amount of Assist Needed 1 Person Assist Discharge Recommendations PT Discharge Recommendations Home with / Assist Available,Home Health Transportation Needs at Discharge Private Vehicle
[2021-12-16 12:00] VITALS: BP 136/69; PULSE 75; RESP 20; TEMP 36.9; O2SAT 98
[2021-12-16] MEDS: SODIUM CHLORIDE 0.9% 1,000 ML 60 ML IV (12:10)
--- NOTE | 2021-12-16 12:16 | CM.SWNOTE ---
Addendum entered by Erlinda Bravo 12/16/21 18:24: STORAGE CENTER MANAGER/DCP Note STORAGE CENTER MANAGER calls [facility] Laci (Ph. # [phone]). It is reported that he received patient's blood draw labs from this afternoon. Intake reports that he reviewed patient with his team and they are requesting: CBC, BMP, new covid test, and chest xray. STORAGE CENTER MANAGER provides Laci with [facility] number and states that [facility] SW will be working tomorrow, Laci also asks for nursing station number and STORAGE CENTER MANAGER provides number. Laci states he will reach out to [facility] tomorrow morning after he receives these updated labs and results. STORAGE CENTER MANAGER calls meteorologist in charge in Acute care Nette and reviews the above. Nette states that she will put in orders and speak with Hospitalist. Plan: DCP to fax Patient's new CBC, BMP, new covid test result and chest xray to [facility] (fax: [phone]) & f/u with intake YAHIR Jones Addendum entered by Erlinda Bravo 12/16/21 16:44: DCRubina Note Marla CHAMPAGNE faxes updated clinicals & patient's power of deputy prosecuting attorney documentation and this STORAGE CENTER MANAGER faxes updated labs from this afternoon to [facility]. STORAGE CENTER MANAGER calls [facility] and leaves requesting return call regarding fax. YAHIR Jones Original Note: DCP/STORAGE CENTER MANAGER Note STORAGE CENTER MANAGER receives call from [facility], (Ph. # [phone]). Intake reported concerns for medical clearance due to patient's dx of PE and Pneumonia. STORAGE CENTER MANAGER endorses that the hospitalist has medically cleared patient. Intake states that would consider reviewing and accepting patient upon medical clearance with out DCR detainment if they are provided patient's Health care Power of deputy prosecuting attorney documentation. STORAGE CENTER MANAGER provides DC's phone number for further coordination of care. STORAGE CENTER MANAGER calls MAHI Gutiérrez and reviews the above. Marla reports that Dr. Montiel was consulting with patient and just entered room to meet with Marla. Plan: seek medical power of deputy prosecuting attorney paperwork for patient, fax updated clinicals and H&P of patient upon medical clearance to [facility], f/u with Psychiatry consultation recommendations. Erlinda Bravo, STAFF TECHNOLOGIST
--- NOTE | 2021-12-16 13:06 | PM.CN ---
History of Present Illness Consult details Date Patient Seen: 12/16/21 Time Patient Seen: 11:30 Chief complaint: Hallucinations and delusions Reason for consult: Psychosis in context of mental status changes and cognitive decline Requesting provider: Felice Atkins Narrative: REFERRAL INFORMATION This is the first psychiatric evaluation for this 71 year old female referred from the inpatient acute care service for evaluation of psychotic symptoms in the context of cognitive decline. RECORDS REVIEW The patient?s referral documents, medical records and intake questionnaire were reviewed as part of this evaluation. CHIEF COMPLAINT The patient has difficulty articulating the chief complaint. 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 In addition to the patient I also interviewed the patient's daughter and who provided additional information. The patient was doing well until last summer when she made a rather unusual comment to her daughter and stating that the chiropractor had told her that she was banned from all [facility] Clinics. The thought that was rather odd but did not think too much of it until around Thanks time when more paranoid delusions started to become more prominent. On May 08 the patient had a colonoscopy done and following the sedation the patient began to have fairly significant fixed delusions and visual hallucinations. She was hospitalized at [facility] for about 2 weeks in treated with quetiapine which was felt to be helpful but initially somewhat sedating. After dropping the dose down to 12.5 mg per day, patient appeared to do better. The family noted that she was experiencing delusions, auditory hallucinations, as well as visual hallucinations of birds and cockroaches. She was seen by Dr. Stoll, neurologist in June of this year who initially suspected that she might have dementia with Lewy bodies but noted that her MOCA was 27/30 which spoke against it given the criteria for cognitive decline. She was later referred to the [facility] neurology Clinic who were also reluctant to make a diagnosis consistent with Lewy body disease. She was started on carbidopa levodopa hoping that this might be somewhat helpful. In the last several weeks, the patient has continued to have some fairly significant delusions on low-dose quetiapine, but behavior was relatively manageable. She then ran out of medication for the last 2 weeks and the delusion, hallucinations, and behavior became severe. At times she was described as almost being ?catatonic? this was noted to be appearing alert and awake but generally unresponsive and frozen in behavior. Patient also has physical symptoms such as tremulousness, drooling, balance, and gait difficulties. After several fairly severe incidence where the patient was responding to S in a shins and delusions, she was brought into the ED for further evaluation and treatment. She was subsequently admitted to the acute inpatient unit. PAST PSYCHIATRIC HISTORY Diagnoses: No prior psychiatric history Inpatient: None. Outpatient: None. Suicide Attempts: None. PREVIOUS PSYCHIATRIC MEDICATION TRIALS The patient has no prior history of psychotropic medication treatment. CURRENT PSYCHOTROPIC MEDICATIONS None currently FAMILY HISTORY Maternal: None. Paternal: None. Siblings: None. SUBSTANCE USE HISTORY Tobacco: The patient does not smoke. Alcohol: No alcohol abuse history Drugs: The patient does not use drugs. DEVELOPMENTAL AND SOCIAL HISTORY Family Constellation/Environment: Unremarkable upbringing Childhood Trauma: The patient denied any history of physical or sexual abuse, and has no history of witnessing violence as a child. Developmental milestones: The patient reached normal developmental milestones. Education: The patient was an adequate student in school and graduated from high school. The patient graduated from college and graduate school. 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 Relationships: Has been for many years as a daughter and grand children. Current Living: Currently lives with [facility] Support: Income from employment. Legal: No current legal difficulties. Meds Home Medications and Allergies Home Medications Medication Instructions Recorded Confirmed Type quetiapine 25 mg tablet 12.5 mg PO BEDTIME 12/14/21 12/14/21 History Allergies Allergy/AdvReac Type Severity Reaction Status Date / Time No Known Drug Allergies Allergy Verified 12/12/21 11:52 Review of Systems Review of Systems ROS: Yes unobtainable due to mental status Exam Vital Signs (past 8 hours): - 12/16/21 06:00 12/16/21 12:00 Temperature 98.8 F 98.5 F Pulse Rate 76 75 Respiratory Rate 17 20 Blood Pressure 128/72 136/69 Pulse Oximetry 96 98 Oxygen Flow Rate 0 Oxygen Delivery Method Room Air Oxygen Flow Rate 0 Narrative Exam Narrative: MENTAL STATUS EXAM Appearance: Well-developed and well-nourished female seen seated bedside. Grooming: Neatly dressed in hospital garb and appeared adequately groomed. Behavior: Calm and cooperative with the evaluation but appeared somewhat confused and anxious. Gait: Gait not tested Speech: Soft in tone, but paucity of speech. Mood: ?Do not know? Affect: Pleasant, but appeared confused, occasionally anxious. Thought Process: Thought blocking and inability to process thoughts apparent. Thought Content: No apparent suicidal or homicidal ideation, intent, or plan. Displayed significant evidence of responding to internal stimuli. Attention: Appeared to be attended to interview, but able to respond. Orientation: Oriented to name only. Memory: Not tested, was unable to engage adequately in order to complete MOCA Insight: Poor Judgment: Poor Objective Imaging CT scan - head: Radiologist's impression: 1. No acute intracranial abnormality. 2. Mild chronic microvascular ischemic changes and age related cerebral volume loss. Labs Result Diagrams: 12/16/21 15:35 12/16/21 15:35 Labs: Laboratory Results - last 24 hr 12/16/21 05:22 Sodium 131 L Potassium 3.1 L Chloride 99 Carbon Dioxide 23 BUN 8 Creatinine 0.30 L Estimated GFR > 60 BUN/Creatinine Ratio 26.7 H Glucose 97 Calcium 8.1 L [facility] Medical History Body posture problem Body posture problem Cervical somatic dysfunction Chicken pox Chronic back pain (~2018) Compression fracture of L1 vertebra with routine healing Cranial somatic dysfunction Facet arthropathy Knee pain (~2008) Kyphosis (acquired) (postural) Musculoskeletal problem (~2019) Osteoporosis Pelvic somatic dysfunction Rib pain on left side Scoliosis Segmental and somatic dysfunction of abdomen and other regions Segmental and somatic dysfunction of lower extremity Segmental and somatic dysfunction of lumbar region Segmental and somatic dysfunction of rib cage Segmental and somatic dysfunction of sacral region Segmental and somatic dysfunction of thoracic region Segmental and somatic dysfunction of upper extremity Skin rash (~2019) Vision disorder Surgical History History of cataract removal with insertion of prosthetic lens (~2015) Family History Father Cancer Mother History of heart disease Social History household members: spouse Tobacco & Substance Use Smoking Status: Never smoker Assessment & Plan Assessment & Plan narrative: ASSESSMENT/MEDICAL DECISION MAKING The patient is a 71-year-old female with no prior psychiatric history who now presents with a 1 year history of progressively worsening delusions, hallucinations along with possible tremor and gait disturbances that are highly indicative of dementia with Lewy bodies. Given the patient's recent significant decline in the last several months this appears highly likely. Patient has core clinical features of fluctuating cognition with pronounced variations in attention and alertness, recurrent visual hallucinations and a resting tremor. The family also notes that the patient has postural instability, hallucinations, systematized delusions, and may also be suffering from apathy, anxiety, and depression. Differential diagnosis of dementia with Lewy bodies includes Parkinson's disease, Alzheimer's dementia, Creutzfeld-Son disease, and normal pressure hydrocephalus. 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 Resume quetiapine 12.5 mg p.o. b.i.d. 2. Continue to rule out other possible causes for mental status changes (unlikely). 3. Will continue to follow with you while patient is in hospital and reassess once antipsychotic medications have resumed. Was unable to complete MOCA at this time, but will try again later once patient improves on quetiapine. 4. Continue carbidopa levodopa 5. May consider pimavanserin if quetiapine ineffective. Time Spent With Patient Time with patient: 30 to 49 minutes with 50% spent counseling/coordinating care Critical Care time: I spent a total of 30 minutes of critical care time on this patient's care today; this time is exclusive of procedural time.
--- NOTE | 2021-12-16 13:15 | PM.PN.1 ---
Subjective Subjective Date Patient Seen: 12/16/21 Interval history: Patient with continued paranoid ideation and delusions. She is a little more verbal since started on Sinemet but still very limited. She has been cooperative with care and did not have any problems walking with physical therapy. , Micky, has been in room supportive of care as well as her daughter, Tracy, here as well and supportive of care. Daughter feels mom had marked improvement on the Seroquel started earlier this year. Additionally daughter notes significant depression and anxiety and wonders about initiation of antidepressant. In regards to acute PE, patient is on apixaban and is not having any dyspnea, tachypnea, tachycardia or other clinical findings. Exam Vital Signs (past 8 hours): - 12/16/21 06:00 12/16/21 12:00 Temperature 98.8 F 98.5 F Pulse Rate 76 75 Respiratory Rate 17 20 Blood Pressure 128/72 136/69 Pulse Oximetry 96 98 Oxygen Flow Rate 0 Oxygen Delivery Method Room Air Oxygen Flow Rate 0 Narrative Exam Narrative: General: Alert female who is sitting in chair, calm, smiling but not very engaged. Lungs: Clear Heart: Regular rhythm Extremities: No edema Neuro/psychiatric: Alert, oriented to person and place, no resting tremor or rigidity Objective Labs Result Diagrams: 12/15/21 05:36 12/16/21 05:22 Labs: Laboratory Results - last 24 hr 12/16/21 05:22 Sodium 131 L Potassium 3.1 L Chloride 99 Carbon Dioxide 23 BUN 8 Creatinine 0.30 L Estimated GFR > 60 BUN/Creatinine Ratio 26.7 H Glucose 97 Calcium 8.1 L [facility] Medical History Body posture problem Body posture problem Cervical somatic dysfunction Chicken pox Chronic back pain (~2018) Compression fracture of L1 vertebra with routine healing Cranial somatic dysfunction Facet arthropathy Knee pain (~2008) Kyphosis (acquired) (postural) Musculoskeletal problem (~2018) Osteoporosis Pelvic somatic dysfunction Rib pain on left side Scoliosis Segmental and somatic dysfunction of abdomen and other regions Segmental and somatic dysfunction of lower extremity Segmental and somatic dysfunction of lumbar region Segmental and somatic dysfunction of rib cage Segmental and somatic dysfunction of sacral region Segmental and somatic dysfunction of thoracic region Segmental and somatic dysfunction of upper extremity Skin rash (~2018) Vision disorder Surgical History History of cataract removal with insertion of prosthetic lens (~2016) Family History Father Cancer Mother History of heart disease Social History household members: spouse Smoking Status: Never smoker Assessment & Plan Assessment & Plan narrative: # acute encephalopathy with psychosis 2/2 probable lewy body dementia vs other unknown degenerative or psychiatric illness, present on admission -patient having worsening delusions and paranoia at home, recently stopped seroquel on her own -was nonverbal and nearly catatonic on admission -head CT in ED negative, can consider MRI however patient may not tolerate -Dr. Stoll contacted by ED who recommended trial of sinemet and if not improvement to stop it, he feels her symptoms are classic lewy body dementia -continue sinemet 25/100mg TID and reassess for improvement, says she appears somewhat better so will continue for now -psych consult, Dr. Stu Montiel, saw patient and recommended increased Seroquel to 12.5 mg b.i.d. and at this time hold off antidepressant -andrea has neurology appointment in February of this year at [facility] brain disorders clinic, was referred by her primary neurologist Dr. Stoll at [facility] # acute provoked pulmonary embolism, present on admission -likely due to sitting in ED for 2 days -continue apixaban 10 mg every 12 hours through December 20 then dose to 5 mg every 12 hours, recommend duration of treatment 3 months # acute hypoxic respiratory failure, resolved -O2 sats in ED dropped to 88% and requiring supplement O2 -likely due to PE # acute aspiration without pneumonia, resolved -per CTA chest with right lower lobe opacity -passed speech swallow study line -antibiotics discontinue PATIENT IS MEDICALLY STABLE FOR TRANSFER TO [facility] FOR FURTHER EVALUATION OF PSYCHOSIS Code status is DNR/DNI. COVID negative. DVT prophylaxis with Lovenox. Proxy is Micky. Time Spent With Patient Critical Care time: I spent a total of [] minutes of critical care time on this patient's care today; this time is exclusive of procedural time. Quality VTE Deep Vein Thrombosis/Pulmonary Embolism Present on Admission: Yes
[2021-12-16 15:42] LABS: Add Manual Diff / Slide Review NO; Basophils Absolute Auto 100 /uL (0-100); Basophils Percent Auto 0.9 % (0-2); Eosinophils Absolute Auto 0 /uL (0-450); Eosinophils Percent Auto 0.9 % (2-4); Hematocrit 36.3 % (36-46); Hemoglobin 12.4 g/dL (12.0-16.0); Lymphocytes Absolute Auto 1700 /uL (1100-4500); Lymphocytes Percent Auto 29.5 % (25-40); Mean Corpuscular HGB Conc 34.2 % (30-36); Mean Corpuscular Hemoglobin 30.7 PG (26-34); Mean Corpuscular Volume 89.8 fL (80-100); Monocytes Absolute Auto 500 /uL (0-900); Monocytes Percent Auto 9.3 % (3-14); Neutrophils Absolute Auto 3400 /uL (1500-7000); Neutrophils Percent Auto 59.4 % (50-75); Platelet Count 230 X10^3/uL (150-400); Red Blood Cell Count 4.04 X10^6/uL (4.0-5.2); Red Cell Distribution Width 12.7 % (11.6-14.8); White Blood Cell Count 5.7 X10^3/uL (4.5-11.0)
[2021-12-16 16:12] LABS: Alanine Aminotransferase 9 IU/L (<35); Albumin 3.3 g/dL (3.5-5.0); Albumin Globulin Ratio 1.1 (1.0-2.8); Alkaline Phosphatase 56 U/L (38-126); Aspartate Aminotransferase 21 IU/L (14-36); BUN Creatinine Ratio 20.5 (6-22); Bilirubin Total 0.7 mg/dL (0.2-1.3); Blood Urea Nitrogen 8 mg/dL (7-17); Calcium 8.2 mg/dL (8.4-10.2); Carbon Dioxide 26 mmol/L (22-32); Chloride 98 mmol/L (98-107); Estimated Glomerular Filt Rate > 60 mL/min (>60); Globulin 2.9 g/dL (1.7-4.1); Glucose 99 mg/dL (80-110); HEMOLYSIS < 15 (0-50); Potassium 3.4 mmol/L (3.4-5.1); Sodium 131 mmol/L (137-145); Total Protein 6.2 g/dL (6.3-8.2)
[2021-12-16] MEDS: QUETIAPINE 25 MG TABLET 12.5 MG PO (16:53)
[2021-12-16 18:00] VITALS: BP 141/97; PULSE 99; RESP 18; TEMP 37.3; O2SAT 100
--- NOTE | 2021-12-16 18:35 | PC.NURSE ---
patient became more confused, she wanted to get out of her bed and go to her bedroom. family had to redirect patient and seroquel was given early per provider order. patient did not take any nap today. patient had some facial twitching (right side jaw movement)this afternoon then she starts drooling. drooling stops and and facial twitching stops. CMS+. she's non verbal right now, provider notified
[2021-12-16 19:55] VITALS: BP 135/77; PULSE 82; RESP 18; TEMP 36.6; O2SAT 99
[2021-12-16] MEDS: SCOPOLAMINE 1 PATCH TOP (21:36)
[2021-12-16] MEDS: TRAZODONE 100 MG TABLET PO (23:39)
--- NOTE | 2021-12-17 00:34 | PC.NURSE ---
Addendum entered by Rossy Singh R.N. 12/17/21 05:46: Patient A/O to self and year. Responding and answering questions with some confusion. Reported that she has a sore throat, tylenol given. Continues with tremors, no further drooling. Slept intermittently throughout the night. Original Note: Patient sitting up in bed, alert and drooling, nonverbal. She does look at me when talking but does not reply. Spouse at bedside. Initially she refused medications, biting her teeth closed. Patient a little more verbal later on and agreed to take her medications, medications administered as ordered.
[2021-12-17 00:38] VITALS: BP 127/74; PULSE 103; RESP 18; TEMP 36.4; O2SAT 93
[2021-12-17 04:37] LABS: Appearance Urine UA CLEAR; Bilirubin Urine UA NEGATIVE (NEGATIVE); Color Urine UA YELLOW; Glucose Urine UA NEGATIVE (Negative); Ketones Urine UA 1+ (NEGATIVE); Leukocyte Esterase Urine UA NEGATIVE (NEGATIVE); Nitrite Urine UA NEGATIVE (Negative); Occult Blood Urine UA 3+ (Negative); Protein Urine UA NEGATIVE (Negative); Urobilinogen Urine UA 0.2 E.U./dL (0.2)
[2021-12-17] MEDS: SODIUM CHLORIDE 0.9% 1,000 ML 60 ML IV (04:43)
[2021-12-17] MEDS: ACETAMINOPHEN 325 MG TABLET 650 MG PO (05:03)
[2021-12-17 05:15] LABS: Add Manual Diff / Slide Review NO; Basophils Absolute Auto 100 /uL (0-100); Basophils Percent Auto 1.5 % (0-2); Eosinophils Absolute Auto 100 /uL (0-450); Eosinophils Percent Auto 1.8 % (2-4); Hematocrit 36.1 % (36-46); Hemoglobin 12.6 g/dL (12.0-16.0); Lymphocytes Absolute Auto 2000 /uL (1100-4500); Lymphocytes Percent Auto 40.6 % (25-40); Mean Corpuscular Hemoglobin 31.1 PG (26-34); Mean Corpuscular Volume 88.7 fL (80-100); Monocytes Absolute Auto 500 /uL (0-900); Monocytes Percent Auto 9.8 % (3-14); Neutrophils Absolute Auto 2300 /uL (1500-7000); Neutrophils Percent Auto 46.3 % (50-75); Platelet Count 256 X10^3/uL (150-400); Red Blood Cell Count 4.07 X10^6/uL (4.0-5.2); Red Cell Distribution Width 12.8 % (11.6-14.8); White Blood Cell Count 4.9 X10^3/uL (4.5-11.0)
[2021-12-17 05:26] LABS: BUN Creatinine Ratio 11.9 (6-22); Blood Urea Nitrogen 5 mg/dL (7-17); Calcium 8.7 mg/dL (8.4-10.2); Carbon Dioxide 30 mmol/L (22-32); Chloride 99 mmol/L (98-107); Estimated Glomerular Filt Rate > 60 mL/min (>60); Glucose 96 mg/dL (80-110); HEMOLYSIS < 15 (0-50); Potassium 3.6 mmol/L (3.4-5.1); Sodium 134 mmol/L (137-145)
--- NOTE | 2021-12-17 06:00 | DI.RAD.S_ITS ---
PROCEDURE: XR CHEST 1V INDICATIONS: r/o pnx TECHNIQUE: One view of the chest was acquired. COMPARISON: [facility], CR, XR CHEST 1V, 12/14/2021, 8:25. FINDINGS: Surgical changes and devices: None. Lungs and pleura: Mild hyperaeration and flattening of the hemidiaphragms. Minimal bibasilar streaky opacities more pronounced on the right. No pneumothorax visualized. No substantial pleural effusion. Mediastinum: Mediastinal contours appear normal. Heart size is normal. Bones and chest wall: No suspicious bony lesions. Overlying soft tissues appear unremarkable. IMPRESSION: Minimal right greater than left bibasilar opacities possibly representing atelectasis and/or early airspace disease. No pneumothorax visualized. Dictated by: Norris Vincent M.D. on 12/17/2021 at 8:59 Approved by: Norris Vincent M.D. on 12/17/2021 at 9:00
[2021-12-17 06:44] LABS: COVID19 -Nasal RAPID Negative (Negative)
[2021-12-17 06:57] LABS: Bacteria Urine Occasional (0-1); RBC Urine 1-5/HPF (0-5/HPF); Squamous Epithelial Cell Urine None Seen (0-5/HPF); WBC Urine 0-1/HPF (0-5/HPF)
[2021-12-17 06:58] LABS: Culture Indicated Urine Cult Not Indicated
--- NOTE | 2021-12-17 07:42 | DIET.CONS ---
Dietary Consultation Note Admission Date: 12/14/2021 11:16 Assessment: 71y F admitted c hallucinations and delusions thought to have late stage Lewy Body Dementia referred to nutrition for malnutrition (MNA 4). 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 Pt always thin framed at 65kg (BMI 22.5), however, pt has had significant and severe unintentional weight loss since May 2021 (-23.4% in 6mo, severe) c severe BMI 16.7 for age. Pt intermittently catatonic, mostly non-verbal with ongoing hallucinations. Pt lives at home c spouse who is attempting placement at geropsych unit or memory care. Pt consuming 50-75% of meal trays while hospitalized, with preference for soft foods and soups. Ht: 172.72 cm Wt: 49.895 kg (-23.4% in 6mo, severe) BMI: 16.7 (severe for age) UBW: 65kg Last BM: 12/14/21 (12/15/21 16:00) MNA: 4 Olman Score: 19 Diet: 12/15/21 Dinner General (Regular) Diet Diet Modifications: prefers soft foods/soups Safety Tray needed?: No Nutrition Percent Meal Consumed 5% 12/16/21 18:00 Percent Meal Consumed 75% 12/16/21 14:20 Percent Meal Consumed 75% 12/16/21 10:15 Percent Meal Consumed 50% 12/15/21 18:00 Percent Meal Consumed 75% 12/15/21 15:00 Percent Meal Consumed 75% 12/15/21 12:00 Labs: RBC 4.07 X10^6/uL (4.0-5.2) 12/17/21 04:54 Hgb 12.6 g/dL (12.0-16.0) 12/17/21 04:54 Hct 36.1 % (36-46) 12/17/21 04:54 Creatinine 0.42 mg/dL (0.52-1.04) L 12/17/21 04:54 Lactate 1.1 mmol/L (0.7-2.1) 12/14/21 08:35 NT-Pro-B Natriuret Pep 42 pg/mL (<125) 12/14/21 08:35 Nutrition Diagnosis: Severe Acute Protein Calorie Malnutrition r/t psychological reasons aeb 23.4% unintentional weight loss in 6mo (severe), BMI 16.7 (severe for age), pt with end stage Lewy body dementia with reduced hunger and thirst cues and severely reduced situational awareness. Interventions: 1. Recc continuing high PRO soft diet c frequent soups-add collagen protein. 2. Recc ONS Ensure Enlive once daily to support nutrition and hydration status. 3. Recc having snacks available within viewing sight with frequent encouragement to eat/drink. EER: 1750kcals (35kcal/kg per PCM), 65-75g PRO (1.3-1.5g/kg per PCM) Monitoring/Evaluations: POs, ONS tolerance Electronically Signed by: Angie Hewitt 12/17/21 07:42 Clinical Diet[address] [id number]
[2021-12-17 08:00] VITALS: BP 144/86; PULSE 84; RESP 20; TEMP 36.7; O2SAT 99
[2021-12-17] MEDS: CARBIDOPA-LEVODOPA 25/100 TABLET 1 EACH PO (09:26)
[2021-12-17] MEDS: polyethylene glycoL 3350 17 GM POWD.PACK PO (09:26)
[2021-12-17] MEDS: SENNOSIDES 8.6 MG TABLET PO (09:26)
[2021-12-17] MEDS: APIXABAN 5 MG TABLET 10 MG PO (09:26)
[2021-12-17] MEDS: QUETIAPINE 25 MG TABLET 12.5 MG PO (09:27)
--- NOTE | 2021-12-17 11:00 | P.DS_ITS ---
History of Present Illness History of Present Illness Chief complaint: Hallucinations and delusions Narrative: 71yo F with PMH of acute psychosis 2/2 possible Lewy body dementia vs schizophrenia, osteoporosis and scoliosis who presented to the ED 2 days ago due to 3 days of increasingly odd behavior and confusion with intermittent catatonia. She was boarding in the ED for 2 days while transfer was attempted to inpatient geriatric psych unit. Unfortunately on day 2 she developed dyspnea and tachycardia. Was put on 1L NC. CTA chest showed small bilateral pulmonary embolisms and focal infiltrate concerning for aspiration PNA. She was admitted for abx and blood thinners. Patient is currently very somnolent and unable to provide history so and sister are giving the history. Patient is already known to me as she first was admitted to [facility] for psychosis symptoms, paranoia and agitation. Was given seroquel and followed up with Dr. Graham neurology who felt her symptoms most likely represented Lewy body dementia. However a separate neuropsych assessment done at suggested her symptoms may be related to a recent colonoscopy she had where she received sedatives which could have led to the psychosis. She continued taking seroquel but it was lowered to 12.5mg dose by Dr. Graham. states she continued to have delusions and paranoia, thinking she was being watched or followed. Then about 10 days ago she stopped the seroquel and had an episode where she thought her daughter was outside in the car and kept going to the front yard to find her. However her daughter was not there but patient was convinced that she was. then brought her to the ED for this worsened behavior. Discharge Providers Provider Date of admission: 12/14/21 11:16 Discharge Date: 12/17/21 Primary care physician: Ivon Stauffer PA-C Consults: 12/12/21 12:39 Consult to [employer] - [employer] [address] [employer] Stat Comment: 12/14/21 11:37 Consult to Physician Routine Comment: Consulting Provider: Stu Baker Reason for consultation: acute psychosis 12/14/21 19:41 Consult to Dietitian, Adult Routine Comment: Reason For Exam: malnourishment 12/15/21 12:23 Consult to Occupational Therapy Evaluate & Treat Comment: Physician Instructions: Evaluate and treat Consult to Physical Therapy Evaluate & Treat Comment: Physician Instructions: Evaluate and Treat 12/16/21 10:14 Consult to Physician Routine Comment: Consulting Provider: Stu Baker Reason for consultation: psychosis Has provider been notified: Yes Discharge provider: Felice Atkins MD Summary Hospital Course Discharge Diagnosis: 1. Acute encephalopathy with psychosis 2. Possible Lewy body dementia 3. Acute provoked pulmonary embolism 4. Acute hypoxic respiratory failure due to PE aspiration, resolved 5. Acute aspiration without pneumonia 6. Atelectasis Hospital Course: Patient was admitted due to acute pulmonary embolism as a result of sitting in the ED 2 days awaiting transfer to geropsych unit. She had brief drop in O2 sats and quickly recovered. She is presently asymptomatic, O2 sat 99% RA, nl HR, not having chest pain or dyspnea. Chest x-ray on a.m. shows mild lower lobe atelectasis bilaterally. There is no fever, cough or other symptoms to suggest a pneumonia developing. Her CTA did suggest aspiration findings in the right lower lobe but again there does not seem to be any signs of pneumonia. For the atelectasis I have ordered incentive spirometer q.1 hour which can be continued at outside facility. Management of the pulmonary embolism, she is on apixaban 10 mg b.i.d. through December 20 then the dose should be lowered to 5 mg b.i.d.. She should stay on oral anticoagulation for at least 3 months. In terms of presenting symptoms to the ED, she had and has persistent delusions. She was evaluated by Dr. Stu baker on 12/16 for psychiatry who felt she most likely has Lewy body dementia. He wrecked so of Seroquel to 12.5 mg b.i.d.. Patient had also been initiated on Sinemet 3 times daily at recommendation of her neurologist Dr. Jose graham as she was quite catatonic seemed to help with movement but she had developed an intermittent facial twitch and drooling which is concerned is side effect of the Sinemet. Therefore I discontinued the Sinemet prior to discharge. Patient is medically stable for discharge to [facility] for further evaluation and management of delusional symptoms. This morning she has stable vitals, normal CBC, chemistries and urinalysis. Repeat COVID PCR negative as well. Status at Discharge Cognitive/behavioral status at discharge: at baseline, confused Functional status at discharge: independent ambulation Time Spent with Patient Time spent: Greater than 30 minutes Exam Vital Signs (past 8 hours): - 12/17/21 08:00 Temperature 98.0 F Pulse Rate 84 Respiratory Rate 20 Blood Pressure 144/86 H Pulse Oximetry 99 Oxygen Flow Rate 0 Oxygen Delivery Method Room Air Oxygen Flow Rate 0 Narrative Exam Narrative: General: Patient is alert, sitting in bedside chair, breathing comfortably, no acute distress Objective Labs Result Diagrams: 12/17/21 04:54 12/17/21 04:54 Labs: Laboratory Results - last 24 hr 12/16/21 12/16/21 12/17/21 15:35 15:35 04:25 WBC 5.7 RBC 4.04 Hgb 12.4 Hct 36.3 MCV 89.8 MCH 30.7 MCHC 34.2 RDW 12.7 Plt Count 230 Neut % (Auto) 59.4 Lymph % (Auto) 29.5 [place] % (Auto) 9.3 Eos % (Auto) 0.9 L Baso % (Auto) 0.9 Neut # (Auto) 3400 Lymph # (Auto) 1700 [place] # (Auto) 500 Eos # (Auto) 0 Baso # (Auto) 100 Sodium 131 L Potassium 3.4 Chloride 98 Carbon Dioxide 26 BUN 8 Creatinine 0.39 L Estimated GFR > 60 BUN/Creatinine Ratio 20.5 Glucose 99 Calcium 8.2 L Total Bilirubin 0.7 AST 21 ALT 9 Alkaline Phosphatase 56 Total Protein 6.2 L Albumin 3.3 L Globulin 2.9 Albumin/Globulin Ratio 1.1 Urine Color Yellow Urine Appearance Clear Urine pH 7.0 Ur Specific [place] 1.020 Urine Protein Negative Urine Glucose (UA) Negative Urine Ketones 1+ H Urine Occult Blood 3+ H Urine Nitrate Negative Urine Bilirubin Negative Urine Urobilinogen 0.2 Ur Leukocyte Esterase Negative Urine RBC 1-5/hpf Urine WBC 0-1/hpf Ur Squamous Epith Cells None seen Urine Bacteria Occasional (0-1) Ur Culture Indicated? Cult not indicated SARS-CoV-2 (PCR) 12/17/21 12/17/21 12/17/21 04:54 04:54 06:21 WBC 4.9 RBC 4.07 Hgb 12.6 Hct 36.1 MCV 88.7 MCH 31.1 MCHC 35.0 RDW 12.8 Plt Count 256 Neut % (Auto) 46.3 L Lymph % (Auto) 40.6 H [place] % (Auto) 9.8 Eos % (Auto) 1.8 L Baso % (Auto) 1.5 Neut # (Auto) 2300 Lymph # (Auto) 2000 [place] # (Auto) 500 Eos # (Auto) 100 Baso # (Auto) 100 Sodium 134 L Potassium 3.6 Chloride 99 Carbon Dioxide 30 BUN 5 L Creatinine 0.42 L Estimated GFR > 60 BUN/Creatinine Ratio 11.9 Glucose 96 Calcium 8.7 Total Bilirubin AST ALT Alkaline Phosphatase Total Protein Albumin Globulin Albumin/Globulin Ratio Urine Color Urine Appearance Urine pH Ur Specific [place] Urine Protein Urine Glucose (UA) Urine Ketones Urine Occult Blood Urine Nitrate Urine Bilirubin Urine Urobilinogen Ur Leukocyte Esterase Urine RBC Urine WBC Ur Squamous Epith Cells Urine Bacteria Ur Culture Indicated? SARS-CoV-2 (PCR) Negative [facility] Medical History Body posture problem Body posture problem Cervical somatic dysfunction Chicken pox Chronic back pain (~2018) Compression fracture of L1 vertebra with routine healing Cranial somatic dysfunction Facet arthropathy Knee pain (~2008) Kyphosis (acquired) (postural) Musculoskeletal problem (~2018) Osteoporosis Pelvic somatic dysfunction Rib pain on left side Scoliosis Segmental and somatic dysfunction of abdomen and other regions Segmental and somatic dysfunction of lower extremity Segmental and somatic dysfunction of lumbar region Segmental and somatic dysfunction of rib cage Segmental and somatic dysfunction of sacral region Segmental and somatic dysfunction of thoracic region Segmental and somatic dysfunction of upper extremity Skin rash (~2018) Vision disorder Surgical History History of cataract removal with insertion of prosthetic lens (~2015) Family History Father Cancer Mother History of heart disease Social History household members: spouse Smoking Status: Never smoker Discharge Plan Discharge Plan Patient Disposition: Xfer Psychiatric Hosp Other facility: [facility] Discharge orders & Medications Prescriptions: New Eliquis 5 mg Tablet 10 mg PO BID Qty: 14 0RF Rx Instructions: GIVE THIS DOSE THRU 12/20/21 polyethylene glycol 3350 17 gram Powder In Packet 17 gm PO DAILY PRN (Reason: Constipation) Qty: 15 0RF sennosides [senna] 8.6 mg Tablet 8.6 mg PO DAILY PRN (Reason: Constipation) Qty: 15 0RF apixaban 5 mg tablet 5 mg PO BID Qty: 60 0RF Rx Instructions: START ON AM 12/21/21 acetaminophen 325 mg Tablet 650 mg PO Q6HR PRN (Reason: Fever/Mild Pain (1-3)) Qty: 30 0RF quetiapine 25 mg Tablet 12.5 mg PO BID Qty: 30 0RF Discontinued quetiapine 25 mg tablet 12.5 mg PO BEDTIME Discharge Health Status Multidrug resistant organism: No MDRO Precautions: [place] Diet/Activity/Treatments Diet: Regular Liquid consistency: Normal/Thin Food texture: Regular Discharge Data Primary Care Provider: Ivon Stauffer VTE Deep Vein Thrombosis/Pulmonary Embolism Present on Admission: Yes
--- NOTE | 2021-12-17 11:32 | OT.IP.TRT ---
Current Diagnoses Pneumonitis due to inhalation of food and vomit (12/14/21) Occupational Therapy Treatment Note M2 OT-IP Current Condition Start: 12/16/21 11:53 Freq: Status: Active Protocol: Document 12/16/21 11:54 CGR (Rec: 12/16/21 12:14 CGR [id number]) Occupational Therapy Current Condition Current Condition Evaluation Date 12/16/21 Treatment Diagnosis acute psychosis, PE, aspiration PNA, Lewy body dementia Diagnosis Onset Date 12/14/21 M3 OT- IP Subjective and Pain Start: 12/16/21 11:53 Freq: Status: Active Protocol: Document 12/17/21 11:55 CCC (Rec: 12/17/21 12:14 CCC [id number]) OT- Subjective Occupational Therapy Visit Type Type Treatment Note Visit Start Time 10:40 Visit Stop Time 11:34 Total Visit Minutes 54 Occupational Therapy Visit Comments Patient Comments Pt agreed to shower and pt's in the room for the beginning of OT session. M4 OT- IP ADL's Start: 12/16/21 11:53 Freq: Status: Active Protocol: Document 12/17/21 11:55 CCC (Rec: 12/17/21 12:14 [facility] [id number]) OT [id number] Comments OT Self-Feeding Comments Pt still having significant drooling and decreased control of her saliva. Suggested to nursing that pt may benefit from PROFESSOR OF KINESIOLOGY eval. OT ADL-Toileting Comments OT Toileting Comments Pt not able to use the toilet at this time. Salmon taken out by the nurse. OT ADL-Bathing Bathing Type Bathing Type Shower General Evaluation Bathing Ability Maximal Assistance Areas Needing Assistance Retrieving/Setting Up Items, Wash/Dry Back,Wash/Dry Perineal Area,Wash/Dry Lower Extremities Devices Bathing Equipment Hand Held Shower Sprayer, Shower Chair with Arms,Grab Bars Comments OT Bathing Comments Pt given wash cloth and able to wash her face and initiate washing her arms and chest and then proceeded to have a bloody nose and nursing aid called in to assist. M5 OT- IP IADL's Start: 12/16/21 11:53 Freq: Status: Active Protocol: Document 12/16/21 11:54 CGR (Rec: 12/16/21 12:14 CGR [id number]) OT-Instrumental Activities of Daily Living Deficits IADL Deficits Identified Deficits Home Safety Awareness Awareness of Need for Assistance at Home Decreased Awareness Ability to Problem Solve Emergency Unable to Problem Solve Situations Medication Management Medication Management Caregiver Administers Money Management Money Management Caregiver Provides Assistance Meal Preparation Meal Preparation Caregiver Provides Assist Ultrasound Technologist Ultrasound Technologist Caregiver Provides Assist M6 OT- IP Functional Cognition Start: 12/16/21 11:53 Freq: Status: Active Protocol: Document 12/17/21 11:55 [facility] (Rec: 12/17/21 12:14 [facility] [id number]) Cognitive Factors Limiting Selfcare Function Cognitive Ability Level of Alertness Alert Patient Orientation Name Attention Span Ability Capable of Focused Attention, Unable to Focus Ability to Follow Commands Able to Follow One Step Commands with Increased Time, Able to Follow One Step Commands with Repetition Cognitive Comments Cognitive Assessment Comments Pt needing simple concrete cues to follow for ADL needs for toileting and showering . M7 OT- IP Mobility and Balance Start: 12/16/21 11:53 Freq: Status: Active Protocol: Document 12/17/21 11:55 [facility] (Rec: 12/17/21 12:14 [facility] [id number]) OT-Transfer Assessment Sit to and From Stand Sit to and from Stand Contact Guard Assistance, Minimal Assistance Transfers Transfer Ability Contact Guard Assistance, Minimal Assistance Technique Transfer Destination Bed,Chair,Shower Stall,Toilet Transfer Technique Stand Step Pivot Devices Transfer Assistive Devices Gait Belt,Front Wheeled Walker Comments Mobility Comments Pt CGA to stand and able to use the FWW with CGA and able to take steps from the shower to bed with SLITTER PROCESSED FILM and PAULA. Pt able to independently get back into bed and scoot herself up in bed on her own with increased time. OT- Balance Assessment Sitting Balance and Reactions Static Sitting Balance Ability Good Dynamic Sitting Balance Ability Fair Standing Balance and Reactions Static Standing Balance Ability Fair Dynamic Standing Balance Ability Poor M8 OT- IP Objective Assessments Start: 12/16/21 11:53 Freq: Status: Active Protocol: Document 12/16/21 11:54 CGR (Rec: 12/16/21 12:14 CGR [id number]) OT Gross Range of Motion Upper Extremity Range of Motion Assessment Within Functional Limits OT Strength Upper Extremity Strength Assessment Within Functional Limits Comments Strength Comments 4-/5 to shlds and arms, 3+/5 to hands OT- Coordination Assessment Upper Extremity Finger to Nose Test Within Functional Limits Finger Tapping Test Within Functional Limits Comments Coordination Comments with extra time for activity. OT-Muscle Tone Assessment Muscle Tone WNL No OT Sensation Assessment Edema Edema Absent M9 OT- IP Assessment and Plan Start: 12/16/21 11:53 Freq: Status: Active Protocol: Document 12/17/21 11:55 [facility] (Rec: 12/17/21 12:14 [facility] [id number]) OT Summary Assessment and Plan Potential Analytic Complexity at Evaluation Moderate Summary OT Impairments Strength,Balance,Functional Cognition,Functional Mobility, Self-Feeding,Grooming,Dressing ,Toileting,Bathing,Toilet Transfers,Shower Transfers, Activity Tolerance Progress Towards Goals Slow Progress due to Medical Issues,Slow Progress due to Cognition Assessment Summary Pt able to tolerate toileting and shower today. Pt able to follow commands but at times needing to be redirected for safety as while showering trying to stand on one foot to wash her legs. Pt at this time could benefit from 24/7 available assist. Per chart pt looking to go to [facility]. Goals Self-Feeding Goal Independent Grooming Goal Standby Assistance Dressing Goal Standby Assistance Toileting Goal Standby Assistance Bathing Goal Standby Assistance Toilet Transfer Goal Standby Assistance Shower Transfer Goal Standby Assistance Days to Meet Goals 10 Frequency of Treatment Frequency Of Treatment Once a Day Treatment Plan OT Treatment Plan ADL Training,Functional Cognition Training,Functional Mobility,Patient/Family Education,Discharge Planning Discharge Recommendations OT Discharge Recommendations Home with 24/7 Assist, higher care facility Available,Home Health Transportation Needs at Discharge Private Vehicle
[2021-12-17 11:42] LABS: COVID19 -Nasal RAPID Negative (Negative)
[2021-12-17 12:00] VITALS: BP 128/77; PULSE 92; RESP 20; TEMP 36.3; O2SAT 100
--- NOTE | 2021-12-17 12:03 | PT.IPTN ---
Current Diagnoses Pneumonitis due to inhalation of food and vomit (12/14/21) Physical Therapy Treatment Note M2 PT-IP Current Condition Start: 12/15/21 15:49 Freq: NEEDED Status: Active Protocol: Document 12/16/21 10:58 SP (Rec: 12/16/21 12:34 SP [id number]) Physical Therapy Current Condition Current Condition Evaluation Date 12/15/21 Treatment Diagnosis acute encepahalopathy; possible Lewy body dementia; slow unsteady gait Onset Date 1 week M3 PT-IP Subjective Start: 12/15/21 15:49 Freq: NEEDED Status: Active Protocol: Document 12/17/21 11:48 KS (Rec: 12/17/21 12:17 KS [id number]) Subjective Physical Therapy Visit Type Type Treatment Note Visit Start Time 11:48 Visit Stop Time 12:03 Total Visit Minutes 15 Notes present during treatment Number of AGRONOMY SUPERVISOR Visits 2 Physical Therapy Visit Comments Patient Comments Pt verbalized ok, yes appropriately with time to process throughout tx. M4 PT-IP Mobility and Gait Start: 12/15/21 15:49 Freq: NEEDED Status: Active Protocol: Document 12/17/21 11:48 KS (Rec: 12/17/21 12:17 KS [id number]) PT-Bed Mobility Assessment Supine to Sit Supine to Sit Contact Guard Assistance,1 Person Assistance,Head of Bed Elevated Scooting Scooting to Edge of Bed Contact Guard Assistance PT-Transfer Assessment Sit to and From Stand Sit to and from Stand Contact Guard Assistance,Use of Upper Extremities Equipment Transfer Assistive Device Gait Belt Orthotic/Prosthetic Devices or Brace: No Transfers Transfer Destination Chair Transfer Technique pt ambulated with B trekking poles Transfer Ability Level of Assist Contact Guard Assistance, Minimal Assistance,Use of Upper Extremities Comments Mobility Comments Pt requires cues, but able to mobilize CGA w/ bilateral trekking poles. She ambulated ~40 ft around room, looking in cabinets and bathroom. Able to nod yes in response to most questions and follow cues, easily redirectable. Pt left reclined in chair w/ chair alarm on. Gait Assessment Gait Gait Assistance Required: Contact Guard Assist Distance (Feet) 40 Able to Maintain Weight Bearing Status Yes During Gait Assistive Devices Assistive Device Gait Belt Orthotic/Prosthetic Devices or Brace: No Gait Deviations General Gait Pattern Decreased Stride Length, Decreased Feet Clearance, Flexed Trunk,Narrow Based Gait Factors Limiting Gait Function Factors Limiting Gait Function Abnormal Tonal Influences, Difficulty Following Directions,Pain,Poor Balance, Poor Safety Awareness Comments Gait Comments mobility around the room with 2 walking sticks, cued upright shoulder posturing, at times LUE advancement CGA and obstacle mgt, no sways or LOB. Stair Climbing Assessment Comments Stair Climbing Comments Not assessed, will need complete 2 stairs 1 BHR, 2 stairs R HR to enter home for DC plan home before leaves. PT-Balance Assessment Sitting Balance and Reactions Static Sitting Balance Ability Good Dynamic Sitting Balance Ability Fair Standing Balance and Reactions Static Standing Balance Ability Fair Dynamic Standing Balance Ability Fair Device Used B trekking poles M5 PT-IP Objective Assessments Start: 12/15/21 15:49 Freq: NEEDED Status: Active Protocol: Document 12/15/21 16:25 AW (Rec: 12/15/21 16:56 AW [id number]) Orientation Orientation/Cognition Level of Alertness Confusional State Orientation Name,Place Safety Awareness Decreased Safety Awareness Memory Description Short Term Impaired Comments Pt used verbal communication intermittently but was largely non-verbal during this encounter. She did follow simple commands for direction but was unable to follow directions for strength testing. Gross Range of Motion Lower Extremity ROM Assessment Within Functional Limits Strength Comments Strength Comments Strength was judged only functionally as pt was unable to follow commands for MMT. Pt able to ambulate with trekking poles. Tremulous extremities likely interfered more with safe mobility than did lack of strength. Sensation Assessment Comments Sensation Comments Unable to formally assess Muscle Tone Muscle Tone WNL No Comments Muscle Tone Comments Truncal rigidity and facial masking noted. Pt has tremors in all extremities with UE's more affected than LE's at this encounter. M6 PT-IP Treatment Start: 12/15/21 15:49 Freq: NEEDED Status: Active Protocol: Document 12/17/21 11:48 KS (Rec: 12/17/21 12:17 KS [id number]) Physical Therapy Treatment Education Education Provided Safety M7 PT-IP Assessment and Plan Start: 12/15/21 15:49 Freq: NEEDED Status: Active Protocol: Document 12/17/21 11:48 KS (Rec: 12/17/21 12:17 KS [id number]) PT Summary Assessment and Plan Potential Rehabilitation Potential Good Summary Impairments Pain,Strength,Balance,Tone, Cognition,Bed Mobility, Transfers,Gait Progress Towards Goals Progressing Toward Goals,Slow Progress due to Activity Tolerance Assessment Summary Pt responding well to most cues and directions today, able to nod yes. CGA for bed mobility, CGA for ambulation w / bilateral trekking poles. Pts present and helpful w/ cues. Continues to be distractibile and minimally verbal and drooling throughout treatment. Pts hopeful for transfer today, if not accepted pt will require 24/7 care and caregiver training. Goals Bed Mobility Goal Standby Assistance Transfer Goal Standby Assistance Gait Goal Standby Assistance Gait Distance 500 Other Goals [gait goal to completed with B trek poles] - up/down 4 steps with unilateral rail SBA Days to Meet Goals 5 Frequency of Treatment Frequency Of Treatment Once a Day Treatment Plan Physical Therapy Treatment Plan Bed Mobility Training,Transfer Training,Gait Training, Therapeutic Exercise,Balance Retraining,Discharge Planning, Hot or Cold Pack,Neuromuscular Re-ed Precautions Other Precautions pt only intermittently verbal Recommendations To Nursing Amount of Assist Needed 1 Person Assist Discharge Recommendations PT Discharge Recommendations Home with 24/7 Assist Available,SNF Rehab Transportation Needs at Discharge Private Vehicle
--- NOTE | 2021-12-17 14:43 | CM.DPNOTE ---
DC Note Coordination DCP throughout the day w/Laci at [facility] Kaleigh, Dr Atkins, RN Ronald and spouse Micky: DC this evening to [facility], Geriatric Psychiatric unit via BLS ([facility]) Spouse updated throughout the day and appreciative. Consent ppk completed, signed by spouse and this ABRASIVE BAND WINDER, copy to [facility] and copy to spouse BLS form completed w/ copy of POLST form left for BLS crew BLS p/u scheduled for 1700, RN and spouse aware and agreeable Packet will be sent w/patient and BLS crew, to include patient's med list and printed prescriptions, DC Summary completed, signed and sent in packet COVID updated this morning, as was lab work and chest xray- all faxed this morning to Laci at [facility] JW
--- NOTE | 2021-12-17 14:45 | DI.CT.S_ITS ---
PROCEDURE: CT HEAD/BRAIN WO CON INDICATIONS: seizure TECHNIQUE: Noncontrast 4.5 mm thick angled axial sections acquired from the foramen magnum to the vertex, with coronal and sagittal reformats. For radiation dose reduction, the following was used: automated exposure control, adjustment of mA and/or kV according to patient size. COMPARISON: [facility], CT, CT HEAD/BRAIN WO CON, 12/14/2021, 9:04. FINDINGS: Image quality: Excellent. CSF spaces: Basal cisterns are patent. No extra-axial fluid collections. The ventricles are symmetric in size and shape. Brain: There is increase hypodensity involving inferior right frontal lobe with poor king-white differentiation concerning for developing right frontal lobe infarction. This is a new finding since previous study. No intracranial bleeds or masses. There is cerebral volume loss for age, with resultant ventricular and sulcal prominence. There are periventricular and deep white matter chronic small vessel ischemic changes. There is intracranial internal carotid artery atherosclerosis. Skull and face: Calvarium and visualized facial bones appear intact, without suspicious lesions. Sinuses: Visualized sinuses and mastoids are clear. IMPRESSION: 1. Finding is concerning for evolving acute infarction in right frontal lobe. Consider MRI of brain for further evaluation. 2. No evidence of acute intracranial bleed, midline shift or significant mass effect. Dictated by: Kong Genao M.D. on 12/17/2021 at 15:13 Approved by: Kong Genao M.D. on 12/17/2021 at 15:15
[2021-12-17] MEDS: LORazepam 2 MG/ML INJ 0.5 MG IV ×4 (14:47→19:16)
[2021-12-17 14:50] VITALS: BP 143/100; PULSE 103; O2SAT 99
--- NOTE | 2021-12-17 15:00 | PC.NURSE ---
event note 1440 pt's spouse came out of room and notified KAYCEE Miranda that pt's arms were shaking and that her eyes had rolled back and pt's head was fixed to the right. RN CP checked pt and then notified Dr. Atkins (at his office) of the same. MD states will order head CT and Ativan. Ativan drawn up and given (reference EMAR), VS taken. Zach to room to transport to CT but pt still having shaking to extremities. order obtained and carried out for second dose of Ativan (reference EMAR).
[2021-12-17 15:36] VITALS: BP 117/72; PULSE 82; RESP 20; TEMP 36.9; O2SAT 97
--- NOTE | 2021-12-17 15:38 | CM.DPC ---
DCP Cont: Pt unable to transfer to [facility] due to unexpected medical need. S transport was cancelled and [facility] was notified of the cancellation. Maggi Fleming RN/SIMONP
--- NOTE | 2021-12-17 15:45 | PM.EVENT ---
Event Note Date Patient Seen: 12/17/21 Time Patient Seen: 15:00 Event Note (Rapid Response, Code, or fall): I was called to see patient due to apparent seizure-like activity with patient having persistent grimacing/twitching of the right cheek, jerking movements of the extremities, and right bilateral gaze deviation. It is not responsive during this episode which was quite prolonged. A stat head CT shows developing acute infarction in the right frontal lobe. In light of current change in clinical status, we have canceled her transfer to [facility] psych. Av Mater NPO pending speech therapy swallow evaluation. Will continue IV fluid at maintenance rate. Telemetry monitoring. Brain MR/MRA and echo for tomorrow. She did get 2 doses of 0.5 mg IV lorazepam for this seizure activity which has subsequently stopped. Ordered lorazepam as needed for recurrent seizure activity. Discussed CT findings with .
[2021-12-17 20:00] VITALS: BP 133/97; PULSE 124; RESP 22; TEMP 38.1; O2SAT 91
[2021-12-17] MEDS: levETIRAcetam 1,500 MG in SODIUM CHLORIDE 0.9% 100 ML 460 MG IV (20:33)
[2021-12-17] MEDS: LORazepam 2 MG/ML INJ 1 MG IV ×2 (20:34→23:21)
--- NOTE | 2021-12-17 20:38 | P.TELICUCN_ITS ---
History of Present Illness Consult details IF CAMERA ACTIVATED, patient seen via real-time interactive audiovisual communication: Camera activated Chief complaint: Hallucinations and delusions Reason for consult: seizure Requesting provider: Sabina Rm Consent obtained for tele-it applications analyst care: Yes Patient Location: ICU Provider location (State): [place] Other participants/roles: RN Narrative: Patient is a 71 year old female with history of possible Lewy body dementia who presents to the ER with acute psychosis. CTH showed acute right frontal lobe infarct. CTA PE study showed small peripheral subsegmental PE. Earlier this afternoon patient was noted to have multiple tonic clonic seizure which started around 2 pm. She has received multiple doses of ativan and versed. Around 7 pm patient continues to seize despite receiving ativan and versed. Wafer Production Lead Worker consulted for further management. Recommended loading keppra 20 mg/kg and intu bation for airway protection given status epilecticus. However, patient is a DNR and does not want any heroic measures. Per RN, family wants to proceed with comfort measure. [facility] Medical History Body posture problem Body posture problem Cervical somatic dysfunction Chicken pox Chronic back pain (~2018) Compression fracture of L1 vertebra with routine healing Cranial somatic dysfunction Facet arthropathy Knee pain (~2008) Kyphosis (acquired) (postural) Musculoskeletal problem (~2018) Osteoporosis Pelvic somatic dysfunction Rib pain on left side Scoliosis Segmental and somatic dysfunction of abdomen and other regions Segmental and somatic dysfunction of lower extremity Segmental and somatic dysfunction of lumbar region Segmental and somatic dysfunction of rib cage Segmental and somatic dysfunction of sacral region Segmental and somatic dysfunction of thoracic region Segmental and somatic dysfunction of upper extremity Skin rash (~2018) Vision disorder Surgical History History of cataract removal with insertion of prosthetic lens (~2015) Family History Father Cancer Mother History of heart disease Social History household members: spouse Smoking Status: Never smoker Current Medications Current Medications Medications: Home Medications acetaminophen 325 mg tablet 650 mg PO Q6HR PRN Fever/Mild Pain (1-3) #30 tabs 12/17/21 [Rx] apixaban 5 mg tablet 5 mg PO BID #60 tabs 12/17/21 [Rx] apixaban 5 mg tablet (Eliquis) 10 mg PO BID #14 tabs 12/17/21 [Rx] polyethylene glycol 3350 17 gram oral powder packet 17 gm PO DAILY PRN Constipation #15 ea 12/17/21 [Rx] quetiapine 25 mg tablet 12.5 mg PO BID #30 tabs 12/17/21 [Rx] sennosides 8.6 mg tablet (senna) 8.6 mg PO DAILY PRN Constipation #15 tabs 12/17/21 [Rx] Visit Medications (administered) Generic Name Dose Route Start Last Admin Trade Name Freq PRN Reason Stop Dose Admin Acetaminophen 650 mg 12/14/21 11:27 12/17/21 05:03 Acetaminophen 325 Mg Tablet PO 650 mg Q6HR PRN Administration Fever/Mild Pain (1-3) Sodium Chloride 1,000 mls @ 60 mls/hr 12/14/21 18:45 12/17/21 04:43 Normal Saline 0.9% IV 60 mls/hr CONT JO Administration Lorazepam 0.5 mg 12/17/21 15:44 12/17/21 19:16 Lorazepam 2 Mg/Ml Inj IV 0.5 mg Q2HR PRN Administration Anxiety Polyethylene Glycol 17 gm 12/16/21 20:07 12/17/21 09:26 Polyethylene Glycol 3350 17 Gm Powd.Pack PO 17 gm DAILY PRN Administration Constipation Quetiapine Fumarate 12.5 mg 12/16/21 16:45 12/17/21 09:27 Quetiapine 25 Mg Tablet PO 12.5 mg BID JO Administration Sennosides 8.6 mg 12/16/21 20:09 12/17/21 09:26 Sennosides 8.6 Mg Tablet PO 8.6 mg DAILY PRN Administration Constipation Exam Vital Signs (past 8 hours): - 12/17/21 14:50 12/17/21 15:36 Temperature 98.4 F Pulse Rate 103 H 82 Respiratory Rate 20 Blood Pressure 143/100 H 117/72 Pulse Oximetry 99 97 Oxygen Flow Rate 0 0 Oxygen Delivery Method Room Air Oxygen Flow Rate 0 Objective Labs Result Diagrams: 12/17/21 04:54 12/17/21 04:54 Labs: Laboratory Results - last 24 hr 09/12/17/21 12/17/21 04:25 04:54 04:54 WBC 4.9 RBC 4.07 Hgb 12.6 Hct 36.1 MCV 88.7 MCH 31.1 MCHC 35.0 RDW 12.8 Plt Count 256 Neut % (Auto) 46.3 L Lymph % (Auto) 40.6 H Childress % (Auto) 9.8 Eos % (Auto) 1.8 L Baso % (Auto) 1.5 Neut # (Auto) 2300 Lymph # (Auto) 2000 Childress # (Auto) 500 Eos # (Auto) 100 Baso # (Auto) 100 Sodium 134 L Potassium 3.6 Chloride 99 Carbon Dioxide 30 BUN 5 L Creatinine 0.42 L Estimated GFR > 60 BUN/Creatinine Ratio 11.9 Glucose 96 Calcium 8.7 Urine Color Yellow Urine Appearance Clear Urine pH 7.0 Ur Specific [place] 1.020 Urine Protein Negative Urine Glucose (UA) Negative Urine Ketones 1+ H Urine Occult Blood 3+ H Urine Nitrate Negative Urine Bilirubin Negative Urine Urobilinogen 0.2 Ur Leukocyte Esterase Negative Urine RBC 1-5/hpf Urine WBC 0-1/hpf Ur Squamous Epith Cells None seen Urine Bacteria Occasional (0-1) Ur Culture Indicated? Cult not indicated SARS-CoV-2 (PCR) 12/17/21 12/17/21 06:21 10:45 WBC RBC Hgb Hct MCV MCH MCHC RDW Plt Count Neut % (Auto) Lymph % (Auto) Child[place] % (Auto) Eos % (Auto) Baso % (Auto) Neut # (Auto) Lymph # (Auto) Child[place] # (Auto) Eos # (Auto) Baso # (Auto) Sodium Potassium Chloride Carbon Dioxide BUN Creatinine Estimated GFR BUN/Creatinine Ratio Glucose Calcium Urine Color Urine Appearance Urine pH Ur Specific [place] Urine Protein Urine Glucose (UA) Urine Ketones Urine Occult Blood Urine Nitrate Urine Bilirubin Urine Urobilinogen Ur Leukocyte Esterase Urine RBC Urine WBC Ur Squamous Epith Cells Urine Bacteria Ur Culture Indicated? SARS-CoV-2 (PCR) Negative Negative Assessment & Plan Assessment and plan (1) Seizure: Status: Acute Plan: -- Clinical presentation with ongoing seizure despite ativan and versed c/w status epilecticus. Recommend keppra load 20 mg/kg and if no improvement then will need endotracheal intubation and start propofol infusion. Patient will need to be transfer to tertiary care for EEG. However, patient is a DNR and does not want any heroic measures. Per discussion, patient's spouse opted to transition patient to comfort care measure. Comfort care order set placed by Sabina Rm. Time Spent With Patient Critical Care time: I spent a total of [] minutes of critical care time on this patient's care today; this time is exclusive of procedural time.
[2021-12-17] MEDS: ENOXAPARIN 40 MG/0.4 ML SYRINGE SUBCUT (21:04)
[2021-12-17] MEDS: levETIRAcetam 500 MG/5 ML VIAL IV (21:04)
[2021-12-17] MEDS: MORPHINE 2 MG/ML INJ 1 MG IV (22:48)
[2021-12-18] MEDS: LORazepam 2 MG/ML INJ 1 MG IV (00:55)
--- NOTE | 2021-12-18 07:09 | PC.NURSE ---
NOC Shift Note- no noted voids since block d/c'ed yesterday. bladder scan at 0500 showed 499mL in bladder. Block cath placed per hospitalist at 0530. 16F w/ 10cc balloon placed without issue. 900mL drained. safety measures in place. will continue to monitor.
--- NOTE | 2021-12-18 10:36 | SLP.IPNOTE ---
Order received. Chart reviewed. Pt is non-responsive and is currently on comfort care. Spoke with nursing. ST not appropriate at this time. Will discharge the order
[2021-12-18 11:51] VITALS: BP 117/66; PULSE 96; RESP 14; TEMP 36.8; O2SAT 99
--- NOTE | 2021-12-18 12:21 | CM.DPC ---
Addendum entered by TODD Stewart 12/18/21 15:27: ADD: SW called [facility] and inquired if pt could be on their list in case they have any cancellations. Mercedes at [facility] called back and stated they were able to move things around and can open pt tomorrow Th12/19/21 between [id number] and will order stat DME delivery and will call and update spouse. SW scheduled [facility]LS transport for tomrrow 12/19/21 to home at 0900 and completed new BLS form and attached POLST and facesheet and placed on pt chart. SW updated RN and MD and applications architect. SW met bedside with spouse and confirmed he is aware of above and discussed he likely will remain home in the morning to prepare for pt arrival and [facility]. BF Original Note: DCP Comfort Care Per MD, yesterday later afternoon prior to planned BLS transport to [facility], pt began having a seizure and imaging showed infarct and pt had lengthy seizure in the evening as well and placed on Kepra and Ativan for ongoing seizure activity. Decision was made with spouse bedside for Comfort Measures. Pt has remained unresponsive since last night and on 1LO2 for comfort with possible plan of discontinuing once son and Dtr have a chance to visit pt bedside today if they want. Minimal output as pt was having urinary retention after seizure and block placed. DARLENE met bedside with pt (non-responsive) and spouse Micky and Micky confirms he would like referral to [facility] and SW discussed Hospice services and Info Visit and Micky confirms that preference would be d/c to home with [facility] if pt is not imminent in the hospital and pt currently has low care needs. Micky would prefer Dtr Tracy [phone] to also be on the Hospice Info call. Spouse states son has been meaning to come in and see his mom but keeps putting it off and SW discussed difficulty for some family members to see loved ones in this type of situation. DARLENE made referral to Hospice and spoke to Mercedes and updated on pt situation and she confirms she can do conference call Info Visit with spouse and Dtr and provided Dtr contact number. Mercedes will attempt Info visit this afternoon or tomorrow morning but currently they do not have an opening for a week out. DARLENE updated spouse and discussed if pt remains stable then cannot remain in the hospital until Hospice can open and he acknowledged understanding and discussed Medicare coverage at SNF for comfort measures and spouse agreeable with referral to [facility] for Comfort as a back up plan. SW called Carmina at [facility] and provided update on pt situation and requested review. Plan: SW to follow closely for [facility] Info Visit with spouse and adult Dtr Tracy towards confirming if they have sooner availability in the home vs [facility] review to determine if they can accept pt on comfort while awaiting Hospice pending pt's stability. TODD Stewart
--- NOTE | 2021-12-18 12:57 | PM.PN.1 ---
Subjective Subjective Interval history: Patient obtunded and unable to meaningfully interact on exam. Exam Vital Signs (past 8 hours): - 12/18/21 11:51 Temperature 98.2 F Pulse Rate 96 H Respiratory Rate 14 Blood Pressure 117/66 Pulse Oximetry 99 Oxygen Flow Rate 1 Oxygen Delivery Method Nasal Cannula Oxygen Flow Rate 1 Const Other: Patient laying in bed obtunded upon my entering the room, in no apparent acute distress Resp Other: Faint rhonchi appreciated to anterior lung cifuentes, scattered Cardio Other: RRR, S1 and S2 heart sounds normal, no extra heart sounds appreciated GI Other: Soft, non-distended, non-tender, bowel sounds present Skin Other: No grossly abnormal skin lesions noted Extrem Other: Palpable dorsalis pedis pulses bilaterally Objective Labs Result Diagrams: 12/17/21 04:54 12/17/21 04:54 [facility] Medical History Body posture problem Body posture problem Cervical somatic dysfunction Chicken pox Chronic back pain (~2018) Compression fracture of L1 vertebra with routine healing Cranial somatic dysfunction Facet arthropathy Knee pain (~2008) Kyphosis (acquired) (postural) Musculoskeletal problem (~2018) Osteoporosis Pelvic somatic dysfunction Rib pain on left side Scoliosis Segmental and somatic dysfunction of abdomen and other regions Segmental and somatic dysfunction of lower extremity Segmental and somatic dysfunction of lumbar region Segmental and somatic dysfunction of rib cage Segmental and somatic dysfunction of sacral region Segmental and somatic dysfunction of thoracic region Segmental and somatic dysfunction of upper extremity Skin rash (~2018) Vision disorder Surgical History History of cataract removal with insertion of prosthetic lens (~2015) Family History Father Cancer Mother History of heart disease Social History household members: spouse Smoking Status: Never smoker Assessment & Plan Assessment & Plan narrative: # acute encephalopathy with psychosis 2/2 probable lewy body dementia vs other unknown degenerative or psychiatric illness, present on admission, and now comfort care -patient having worsening delusions and paranoia at home, recently stopped seroquel on her own -was nonverbal and nearly catatonic on admission -head CT in ED negative, can consider MRI however patient may not tolerate -Dr. Stoll contacted by ED who recommended trial of sinemet and if not improvement to stop it, he feels her symptoms are classic lewy body dementia -after discussion with family by multiple healthcare providers, patient made comfort care on 12/17 # acute provoked pulmonary embolism, present on admission -likely due to sitting in ED for 2 days -continue apixaban 10 mg every 12 hours through December 20 then dose to 5 mg every 12 hours, recommend duration of treatment 3 months # acute hypoxic respiratory failure, resolved -O2 sats in ED dropped to 88% and requiring supplement O2 -likely due to PE # acute aspiration without pneumonia, resolved -per CTA chest with right lower lobe opacity -antibiotics discontinue Code status is DNR/DNI. COVID negative. DVT prophylaxis with Lovenox. Proxy is Micky. I confirm that the patient's advance care plan is present, code status is documented and listed in the patient's medical record. I have utilized all available immediate resources to obtain, update, or review the patient's current medications. Time Spent With Patient Critical Care time: I spent a total of [] minutes of critical care time on this patient's care today; this time is exclusive of procedural time. Quality VTE Deep Vein Thrombosis/Pulmonary Embolism Present on Admission: Yes MIPS - Admit I confirm the patient?s Advance Care Plan is present, Code status is documented, Surrogate decision maker is in patient?s record [If Yes, STOP here]: Yes
[2021-12-18] MEDS: ACETAMINOPHEN 650 MG SUPP PR (20:19)
[2021-12-19 08:13] VITALS: BP 140/79; PULSE 95; RESP 18; TEMP 36.8; O2SAT 94
--- NOTE | 2021-12-19 08:44 | PM.PN.1 ---
Subjective Subjective Interval history: Patient is obtunded and unable to participate meaningfully in history acquisition. Exam Vital Signs (past 8 hours): - 12/19/21 08:13 Temperature 98.3 F Pulse Rate 95 H Respiratory Rate 18 Blood Pressure 140/79 Pulse Oximetry 94 Oxygen Flow Rate 0 Oxygen Delivery Method Nasal Cannula Oxygen Flow Rate 0 Const Other: Patient laying in bed obtunded upon my entering the room, in no apparent acute distress Resp Other: Faint rhonchi appreciated to anterior lung cifuentes, scattered Cardio Other: RRR, S1 and S2 heart sounds normal, no extra heart sounds appreciated GI Other: Soft, non-distended, non-tender, bowel sounds present Skin Other: No grossly abnormal skin lesions noted Extrem Other: Palpable dorsalis pedis pulses bilaterally Objective Labs Result Diagrams: 12/17/21 04:54 12/17/21 04:54 [facility] Medical History Body posture problem Body posture problem Cervical somatic dysfunction Chicken pox Chronic back pain (~2018) Compression fracture of L1 vertebra with routine healing Cranial somatic dysfunction Facet arthropathy Knee pain (~2008) Kyphosis (acquired) (postural) Musculoskeletal problem (~2018) Osteoporosis Pelvic somatic dysfunction Rib pain on left side Scoliosis Segmental and somatic dysfunction of abdomen and other regions Segmental and somatic dysfunction of lower extremity Segmental and somatic dysfunction of lumbar region Segmental and somatic dysfunction of rib cage Segmental and somatic dysfunction of sacral region Segmental and somatic dysfunction of thoracic region Segmental and somatic dysfunction of upper extremity Skin rash (~2018) Vision disorder Surgical History History of cataract removal with insertion of prosthetic lens (~2015) Family History Father Cancer Mother History of heart disease Social History household members: spouse Smoking Status: Never smoker Assessment & Plan Assessment & Plan narrative: 1. acute encephalopathy with psychosis 2/2 probable lewy body dementia vs other unknown degenerative or psychiatric illness, present on admission, and now comfort care -patient having worsening delusions and paranoia at home, recently stopped seroquel on her own -was nonverbal and nearly catatonic on admission -head CT in ED negative, can consider MRI however patient may not tolerate -Dr. Stoll contacted by ED who recommended trial of sinemet and if not improvement to stop it, he feels her symptoms are classic lewy body dementia -after discussion with family by multiple healthcare providers, patient made comfort care on 12/17, with discharge to care of hospice 2. acute provoked pulmonary embolism, present on admission -likely due to sitting in ED for 2 days -continue apixaban 10 mg every 12 hours through December 20 then dose to 5 mg every 12 hours, recommend duration of treatment 3 months 3. acute hypoxic respiratory failure, resolved -O2 sats in ED dropped to 88% and requiring supplement O2 -likely due to PE 4. acute aspiration without pneumonia, resolved -per CTA chest with right lower lobe opacity -antibiotics discontinue Code status is DNR/DNI COVID negative DVT prophylaxis with Lovenox Proxy is Micky Time Spent With Patient Critical Care time: I spent a total of [] minutes of critical care time on this patient's care today; this time is exclusive of procedural time. Quality VTE Deep Vein Thrombosis/Pulmonary Embolism Present on Admission: Yes
--- NOTE | 2021-12-19 08:45 | PM.DS.1 ---
History of Present Illness History of Present Illness Chief complaint: Hallucinations and delusions Narrative: 71yo F with PMH of acute psychosis 2/2 possible Lewy body dementia vs schizophrenia, osteoporosis and scoliosis who presented to the ED 2 days ago due to 3 days of increasingly odd behavior and confusion with intermittent catatonia. She was boarding in the ED for 2 days while transfer was attempted to inpatient geriatric psych unit. Unfortunately on day 2 she developed dyspnea and tachycardia. Was put on 1L NC. CTA chest showed small bilateral pulmonary embolisms and focal infiltrate concerning for aspiration PNA. She was admitted for abx and blood thinners. Patient is currently very somnolent and unable to provide history so and sister are giving the history. Patient is already known to me as she first was admitted to [facility] for psychosis symptoms, paranoia and agitation. Was given seroquel and followed up with Dr. Stoll neurology who felt her symptoms most likely represented Lewy body dementia. However a separate neuropsych assessment done at suggested her symptoms may be related to a recent colonoscopy she had where she received sedatives which could have led to the psychosis. She continued taking seroquel but it was lowered to 12.5mg dose by Dr. Stoll. states she continued to have delusions and paranoia, thinking she was being watched or followed. Then about 10 days ago she stopped the seroquel and had an episode where she thought her daughter was outside in the car and kept going to the front yard to find her. However her daughter was not there but patient was convinced that she was. then brought her to the ED for this worsened behavior. Written by admitting provider. Discharge Providers Provider Date of admission: 12/14/21 11:16 Discharge Date: 12/19/21 Primary care physician: Ivon Stauffer PA-C Consults: 12/12/21 12:39 Consult to BUSINESS AND MARKETING TEACHER - Bridge Ironworker Stat Comment: 12/14/21 11:37 Consult to Physician Routine Comment: Consulting Provider: Stu Montiel Reason for consultation: acute psychosis 12/14/21 19:41 Consult to Dietitian, Adult Routine Comment: Reason For Exam: malnourishment 12/16/21 10:14 Consult to Physician Routine Comment: Consulting Provider: Stu Montiel Reason for consultation: psychosis Has provider been notified: Yes 12/17/21 15:43 Consult to Speech Therapy Evaluate & Treat Comment: new CVA Physician Instructions: Evaluate and treat 12/17/21 20:30 Consult to Tele-glass processing worker Routine Comment: Consulting Provider: Shayla Tele-intensivists Reason for consultation: Mathematical Statistician services Has provider been notified: Yes 12/17/21 21:01 Consult to Discharge Planning Routine Comment: Consult to Hospice Referral Urgent Comment: Discharge provider: Nilo Smith MD Summary Hospital Course Discharge Diagnosis: # acute encephalopathy with psychosis 2/2 probable lewy body dementia vs other unknown degenerative or psychiatric illness, present on admission, and now comfort care -patient having worsening delusions and paranoia at home, recently stopped seroquel on her own -was nonverbal and nearly catatonic on admission, head CT in ED negative -Dr. Stoll contacted by ED who recommended trial of sinemet and if not improvement to stop it, he feels her symptoms are classic lewy body dementia -after discussion with family by multiple healthcare providers, patient made comfort care on 12/17, and discharged in the care of hospice on 12/18 # acute provoked pulmonary embolism, present on admission -likely due to sitting in ED for 2 days -continue apixaban 10 mg every 12 hours through December 20 then dose to 5 mg every 12 hours, recommend duration of treatment 3 months # acute hypoxic respiratory failure, resolved -O2 sats in ED dropped to 88% and requiring supplement O2 -likely due to PE # acute aspiration without pneumonia, resolved -per CTA chest with right lower lobe opacity -antibiotics discontinue Code status is DNR/DNI. COVID negative. DVT prophylaxis with Lovenox. Proxy is Micky. Exam Vital Signs (past 8 hours): - 12/19/21 08:13 Temperature 98.3 F Pulse Rate 95 H Respiratory Rate 18 Blood Pressure 140/79 Pulse Oximetry 94 Oxygen Flow Rate 0 Oxygen Delivery Method Nasal Cannula Oxygen Flow Rate 0 Objective Labs Result Diagrams: 12/17/21 04:54 12/17/21 04:54 [facility] Medical History Body posture problem Body posture problem Cervical somatic dysfunction Chicken pox Chronic back pain (~2018) Compression fracture of L1 vertebra with routine healing Cranial somatic dysfunction Facet arthropathy Knee pain (~2008) Kyphosis (acquired) (postural) Musculoskeletal problem (~2018) Osteoporosis Pelvic somatic dysfunction Rib pain on left side Scoliosis Segmental and somatic dysfunction of abdomen and other regions Segmental and somatic dysfunction of lower extremity Segmental and somatic dysfunction of lumbar region Segmental and somatic dysfunction of rib cage Segmental and somatic dysfunction of sacral region Segmental and somatic dysfunction of thoracic region Segmental and somatic dysfunction of upper extremity Skin rash (~2018) Vision disorder Surgical History History of cataract removal with insertion of prosthetic lens (~2016) Family History Father Cancer Mother History of heart disease Social History household members: spouse Smoking Status: Never smoker Discharge Assessment & Plan Assessment and Plan Assessment: # acute encephalopathy with psychosis 2/2 probable lewy body dementia vs other unknown degenerative or psychiatric illness, present on admission, and now comfort care -patient having worsening delusions and paranoia at home, recently stopped seroquel on her own -was nonverbal and nearly catatonic on admission, head CT in ED negative -Dr. Stoll contacted by ED who recommended trial of sinemet and if not improvement to stop it, he feels her symptoms are classic lewy body dementia -after discussion with family by multiple healthcare providers, patient made comfort care on 12/17, and discharged in the care of hospice on 12/18 # acute provoked pulmonary embolism, present on admission -likely due to sitting in ED for 2 days -continue apixaban 10 mg every 12 hours through December 20 then dose to 5 mg every 12 hours, recommend duration of treatment 3 months # acute hypoxic respiratory failure, resolved -O2 sats in ED dropped to 88% and requiring supplement O2 -likely due to PE # acute aspiration without pneumonia, resolved -per CTA chest with right lower lobe opacity -antibiotics discontinue Code status is DNR/DNI. COVID negative. DVT prophylaxis with Lovenox. Proxy is Micky. Discharge Plan Discharge Plan Patient Disposition: Home Discharge orders & Medications Prescriptions: New acetaminophen 325 mg Tablet 650 mg PO Q6HR PRN (Reason: Fever/Mild Pain (1-3)) Qty: 30 0RF Eliquis 5 mg Tablet 10 mg PO BID Qty: 14 0RF Rx Instructions: GIVE THIS DOSE THRU 12/20/21 quetiapine 25 mg Tablet 12.5 mg PO BID Qty: 30 0RF sennosides [senna] 8.6 mg Tablet 8.6 mg PO DAILY PRN (Reason: Constipation) Qty: 15 0RF polyethylene glycol 3350 17 gram Powder In Packet 17 gm PO DAILY PRN (Reason: Constipation) Qty: 15 0RF apixaban 5 mg tablet 5 mg PO BID Qty: 60 0RF Rx Instructions: START ON AM 12/21/21 Discontinued quetiapine 25 mg tablet 12.5 mg PO BEDTIME Follow up/Referrals: Ivon Stauffer PA-C [Primary Care Provider] - Discharge Health Status Multidrug resistant organism: No MDRO Diet/Activity/Treatments Diet: Regular Discharge Data Primary Care Provider: Ivon Stauffer Quality VTE Deep Vein Thrombosis/Pulmonary Embolism Present on Admission: Yes
--- NOTE | 2021-12-19 09:15 | CM.DPC ---
DC Note DC home this morning as scheduled, BLS p/u at 0900. Placed call to spouse Micky to confirm and he is aware, agreeable to plan and ready to welcome patient home Sandra at [facility] confirms KAYCEE Puentes will be arriving to patient's home between [id number] Plan: DC home w/family via BLS, [facility] to start care this morning between [id number] JW
--- NOTE | 2021-12-19 09:31 | PC.NURSE ---
Pt discharged home with hospice at 910, escorted off floor in stretcher, accompanied by ambulance transport. IV d/c'd, discharge paperwork sent home with patient. No belongings at bedside, notified by care management that patient is on her way.
== END 2021-12-19 09:20 | disposition hospice, home (50) | DRG 177 ==
LOC: ED 12-14 11:14 → AC 12-14 11:18
PROVIDERS: Emergency Medicine; Internal Medicine; Admitting Provider Student in an Organized Health Care Education/Training Program; Emergency Provider Emergency Medicine; PCP Physician Assistant; Referring Provider Emergency Medicine; Visit Provider Student in an Organized Health Care Education/Training Program
DX: J69.0 Pneumonitis due to inhalation of food and vomit (principal); E43 Unspecified severe protein-calorie malnutrition; I26.99 Other pulmonary embolism without acute cor pulmonale; J96.01 Acute respiratory failure with hypoxia; I63.9 Cerebral infarction, unspecified; Z68.1 Body mass index [BMI] 19.9 or less, adult; G31.83 Neurocognitive disorder with Lewy bodies; F02.80 Dementia in other diseases classified elsewhere, unspecified severity, without behavioral disturbance, psychotic disturbance, mood disturbance, and anxiety; F06.1 Catatonic disorder due to known physiological condition; G40.901 Epilepsy, unspecified, not intractable, with status epilepticus; K59.00 Constipation, unspecified; Z66 Do not resuscitate; Z51.5 Encounter for palliative care
CPT/HCPCS: 36415; 70450; 71045; 71275; 80048; 80053; 80305; 80320; 81001; 81003; 83605; 83690; 83735; 83880; 84145; 84443; 84484; 85025; 85379; 87040; 87633; 87635; 90792; 93005; 93010; 96365; 96372; 97116; 97163; 97166; 97530; 97535; 99285; C9803; J1650; J1953; J2060; J2270; J2543; Q9967